=== PATIENT | female | born 1960 ===

== ENCOUNTER 2016-12-20 18:32 | Emergency (ER) | payer MEDICAID ==
[2016-12-20 18:44] VITALS: TEMP 98.2
[2016-12-20] MEDS ORDERED: Sodium Chloride 0.9% 1,000 ML IV STA (19:56)
--- NOTE | 2016-12-20 20:10 | ED PDOC ---
Syncope/Near Syncope/Dizziness Time Seen by Provider: 12/20/16 19:06 Chief Complaint (Nursing): Dizziness/Lightheaded Chief Complaint (Provider): Dizziness History Per: Patient History/Exam Limitations: no limitations Onset/Duration Of Symptoms: Days (3) Current Symptoms Are (Timing): Still Present Additional Complaint(s): Dana Quigley is a 56 y/o female, with a pertinent past medical history of Vertigo, presenting to the ER on 12/20/2016 with complaints of dizziness for three days. Patient states the dizziness does not have a spinning sensation. The dizziness worsened when the patient got out of bed today. Patient states she had difficulty ambulating because she felt near-syncopal episodes when walking. She notes associated chest pain this afternoon but has resolved on its own upon arrival to the ED. Patient is also complaining of mild headaches for three days with associated myalgias and chills. Patient took Meclizine that was prescribed to her previously but has not experienced any improvement in the dizziness, prompting him to seek medical evaluation. Past Medical History Reviewed: Historical Data, Nursing Documentation, Vital Signs Vital Signs: Last Vital Signs Temp 98.2 F 12/20/16 18:42 Pulse 89 12/20/16 18:42 Resp 16 12/20/16 18:42 BP 132/81 12/20/16 18:42 Pulse Ox 98 12/20/16 18:42 - Medical History PMH: Anemia, Anxiety, Arthritis, Asthma, Atrial Fibrillation, Bronchitis, Cardia Arrhythmia, COPD, Depression, Diverticulitis, Gastritis (ulcer), GERD, HTN, Pneumonia, Rheumatoid Arthritis Denies: HIV, Chronic Kidney Disease Other PMH: GI Bleed - Surgical History Surgical History: Cholecystectomy, (x3) - Family History Family History: States: Unknown Family Hx - Social History Current smoker - smoking cessation education provided: No Alcohol: None Drugs: Denies - Immunization History Hx Tetanus Toxoid Vaccination: No Hx Influenza Vaccination: No Hx Pneumococcal Vaccination: No - Home Medications Home Medications: Ambulatory Orders Medication Instructions Recorded ALPRAZolam [Xanax] 1 mg PO TID 10/30/15 ARIPiprazole [Abilify] 2 mg PO HS 10/30/15 DULoxetine [Cymbalta] 60 mg PO HS 10/30/15 Nystatin [Nystatin Oral Susp] 5 ml PO QID #0 [facility] [place] 11/09/15 Oxycodone HCl/Acetaminophen 2 each PO Q6 #0 tablet 11/09/15 [Percocet 5-325 mg Tablet] Pantoprazole [Protonix EC Tab] 40 mg PO DAILY #0 ect 11/09/15 predniSONE [predniSONE Tab] 35 mg PO DAILY #0 tab 11/09/15 Ibuprofen [Motrin] 600 mg PO TID PRN #30 tab 05/01/16 oxyCODONE/Acetaminophen [Percocet 1 ea PO Q6 PRN #10 tab 05/01/16 5/325 mg Tab] - Allergies Allergies/Adverse Reactions: Allergies Allergy/AdvReac Type Severity Reaction Status Date / Time ciprofloxacin [From Cipro] Allergy RASH Verified 12/20/16 18:41 ciprofloxacin HCl Allergy RASH Verified 12/20/16 18:41 [From Cipro] Penicillins Allergy RASH Verified 12/20/16 18:41 Review of Systems Constitutional: Positive for: Chills, Other ((+) myalgia ) Cardiovascular: Positive for: Chest Pain Neurological: Positive for: Headache, Dizziness Physical Exam - Reviewed Nursing Documentation Reviewed: Yes Vital Signs Reviewed: Yes - Physical Exam Appears: Positive for: Non-toxic, No Acute Distress. Negative for: Uncomfortable (pt is comfortable ) Head Exam: Positive for: ATRAUMATIC, NORMOCEPHALIC Skin: Positive for: Normal Color. Negative for: Rash Eye Exam: Positive for: Normal appearance, EOMI, PERRL ENT: Positive for: Normal ENT Inspection. Negative for: Pharyngeal Erythema, Tonsillar Exudate, Tonsillar Swelling Neck: Positive for: Normal, Painless ROM, Supple Cardiovascular/Chest: Positive for: Regular Rate, Rhythm. Negative for: Murmur Respiratory: Positive for: Normal Breath Sounds. Negative for: Wheezing, Respiratory Distress Gastrointestinal/Abdominal: Positive for: Normal Exam, Soft. Negative for: Tenderness Extremity: Positive for: Normal ROM. Negative for: Deformity, Swelling Neurologic/Psych: Positive for: Alert, logging superintendent II-XII (intact ), Oriented, Gait ( steady ). Negative for: Motor/Sensory Deficits - Laboratory Results Result Diagrams: 12/20/16 20:09 12/20/16 20:09 - ECG ECG: Positive for: Interpreted By Me, Viewed By Me ECG Rhythm: Positive for: Normal QRS, Normal ST Segment, Sinus Rhythm. Negative for: Nonspecific Changes Rate: 78 O2 Sat by Pulse Oximetry: 98 Medical Decision Making Medical Decision Makin:06 Initial Impression- Dizziness. Differential dx includes but not limited to Dizziness assx with anemia and cardiac arrhythmia, less likely but also have to consider persistent vertigo (central vs peripheral); r/o UTI and dehydration Initial Plan- * Type and Screen * CT Head w/o contrast * EKG * BMP * Troponin * Urine Dip * CBC w/ differential * Sodium Chloride 1,000 ml IV * Re-eval CT HEAD FINDINGS: Brain: Ventricles are normal in size and configuration. There is no midline shift. There are no intra-axial or extra-axial mass lesions or areas of hemorrhage. There are no abnormal fluid collections. Rodriguez-white differentiation is maintained. Ventricles: See above. Bones: Cranial vault is intact. Soft tissues: unremarkable Sinuses: There is no acute sinusitis. Ears and mastoids: Middle ears and mastoids are unremarkable Orbits: Orbital contents are unremarkable. IMPRESSION: No acute intracranial abnormality Documented by Hudson Ramires, acting as a scribe for Shanti Ulloa MD All medical record entries made by the Scribe were at my direction and personally dictated by me. I have reviewed the chart and agree that the record accurately reflects my personal performance of the history, physical exam, medical decision making, and the department course for this patient. I have also personally directed, reviewed, and agree with the discharge instructions and disposition. Disposition - Clinical Impression Clinical Impression: Dizziness - Patient ED Disposition Is Patient to be Admitted: No Doctor Will See Patient In The: Office Counseled Patient/Family Regarding: Studies Performed, Diagnosis, Need For Followup - Disposition Referrals: Fredis Johnston MD [Staff Provider] - Disposition: Routine/Home Disposition Time: 22:54 Condition: GOOD Additional Instructions: Follow up with your PCP in 2-3 days. Instructions: Dizziness (ED)
[2016-12-20 20:32] LABS: BLOOD UREA NITROGEN 18 mg/dl (7-17); CALCIUM 9.2 mg/dL (8.4-10.2); CARBON DIOXIDE 22 mmol/L (22-30); CHLORIDE 109 mmol/L (98-107); GFR AFRICAN-AMERICAN > 60; GLUCOSE,RANDOM 100 mg/dL (65-105); POTASSIUM 3.7 MMOL/L (3.6-5.0); SODIUM 143 mmol/l (132-148)
[2016-12-20 20:36] LABS: BASO # 0.1 K/uL (0.0-0.2); EOS # 0.2 K/uL (0.0-0.7); EOS % 1.9 % (0.0-4.0); HEMATOCRIT 42.5 % (34.0-47.0); LYMPH # 2.2 K/uL (1.0-4.3); LYMPH % 18.6 % (20.0-40.0); MEAN CELL VOLUME 82.7 fl (81.0-99.0); MEAN CORPUSCULAR HEMOGLOBIN 26.6 pg (27.0-31.0); MEAN CORPUSCULAR HGB CONC 32.2 g/dL (33.0-37.0); MEAN PLATELET VOLUME 10.3 fl (7.2-11.7); MONO # 0.7 K/uL (0.0-0.8); MONO % 5.5 % (0.0-10.0); NEUT # 8.8 K/uL (1.8-7.0); NRBC % 0.1 % (0.0-0.0); RED CELL DISTRIBUTION WIDTH 13.9 % (11.5-14.5)
--- NOTE | 2016-12-20 20:52 | CT ---
EXAM: CT Head Without Intravenous Contrast CLINICAL HISTORY: 56 years old, female; Signs and symptoms; Dizziness TECHNIQUE: Axial computed tomography images of the head/brain without intravenous contrast. This CT exam was performed using one or more of the following dose reduction techniques: automated exposure control, adjustment of the mA and/or kV according to patient size, and/or use of iterative reconstruction technique. Coronal and sagittal reformatted images were created and reviewed. EXAM DATE/TIME: 12/20/2016 7:55 PM COMPARISON: CT HEAD OR BRAIN W/O CONT 11/14/2013 3:28:39 PM FINDINGS: Brain: Ventricles are normal in size and configuration. There is no midline shift. There are no intra-axial or extra-axial mass lesions or areas of hemorrhage. There are no abnormal fluid collections. Rodriguez-white differentiation is maintained. Ventricles: See above. Bones: Cranial vault is intact. Soft tissues: unremarkable Sinuses: There is no acute sinusitis. Ears and mastoids: Middle ears and mastoids are unremarkable Orbits: Orbital contents are unremarkable. IMPRESSION: No acute intracranial abnormality
[2016-12-20 22:10] VITALS: BP 132/78; RESP 18
[2016-12-20 22:56] VITALS: O2SAT 98
[2016-12-20 22:57] VITALS: PULSE 78
--- NOTE | 2016-12-21 11:54 | RAD ---
HISTORY: cough COMPARISON: Chest x-ray performed 10/24/15 TECHNIQUE: Chest PA and lateral FINDINGS: LUNGS: Medial right upper lobe opacity, of unclear significance possibly artifactual or related to tortuous vasculature. Please note that chest x-ray has limited sensitivity for the detection of pulmonary masses. PLEURA: No significant pleural effusion identified. No definite pneumothorax . CARDIOVASCULAR: The cardiomediastinal silhouette appears within normal limits of size. OSSEOUS STRUCTURES: No acute osseous abnormality identified. VISUALIZED UPPER ABDOMEN: Mild elevation of the right hemidiaphragm. OTHER FINDINGS: None. IMPRESSION: Medial right upper lobe opacity, of unclear significance possibly artifactual or related to tortuous vasculature. If indicated, outpatient CT of the chest may be considered. Study has been marked for PA review.
--- NOTE | 2016-12-22 11:47 | CARD ---
APPROVED REPORT EKG Measurement Heart [id number] DC [id number] <Conclusion> Normal sinus rhythm Nonspecific T wave abnormality Prolonged QT Abnormal ECG
== END 2016-12-20 23:20 | disposition home or self-care (01) ==
LOC: H.ER 18:32
DX: R42 Dizziness and giddiness (principal); R51 Headache; M79.1 Myalgia

== ENCOUNTER 2016-12-21 14:13 | Emergency (ER) | payer MEDICAID ==
[2016-12-21 14:25] VITALS: RESP 18
[2016-12-21] MEDS ORDERED: Sodium Chloride 0.9% 1,000 ML IV STA (14:55)
--- NOTE | 2016-12-21 15:33 | ED PDOC ---
HPI: General Adult Time Seen by Provider: 12/21/16 14:30 Chief Complaint (Nursing): Medical Clearance History Per: Patient (states that she has had dizziness/spinning now for 4 days. She was seen in our ED yesterday and after a workup that included a brain CT and blood work, she was discharged home to followup with Dr. Johnston. According to the patient, she has had dizziness in the past and she has taken meclizine and another med for the past 3 days without relief. She also reports having headaches with slight nausea and diffuse bone pain. She denies fever or chills. She lives alone. Her children are grown and live elsewhere. She has been a smoker since her teenage years.) History/Exam Limitations: no limitations Onset/Duration Of Symptoms: Days (4), Gradual, Persistent Current Symptoms Are (Timing): Still Present Past Medical History Reviewed: Historical Data, Nursing Documentation, Vital Signs Vital Signs: Last Vital Signs Temp 98 F 12/21/16 17:40 Pulse 73 12/21/16 17:40 Resp 18 12/21/16 17:40 BP 109/65 12/21/16 17:40 Pulse Ox 100 12/21/16 17:40 - Medical History PMH: Anemia, Anxiety, Arthritis, Asthma, Atrial Fibrillation, Bronchitis, Cardia Arrhythmia, COPD, Depression, Diverticulitis, Gastritis (ulcer), GERD, HTN, Pneumonia, Rheumatoid Arthritis Denies: HIV, Chronic Kidney Disease - Surgical History Surgical History: Cholecystectomy, (x3) - Family History Family History: States: No Known Family Hx - Living Arrangements Living Arrangements: Alone - Social History Ex-Smoker (has not smoked in the last 12 months): Yes Drugs: Denies - Immunization History Hx Tetanus Toxoid Vaccination: No Hx Influenza Vaccination: No Hx Pneumococcal Vaccination: No - Home Medications Home Medications: Ambulatory Orders Medication Instructions Recorded ALPRAZolam [Xanax] 1 mg PO TID 10/30/15 ARIPiprazole [Abilify] 2 mg PO HS 10/30/15 DULoxetine [Cymbalta] 60 mg PO HS 10/30/15 Nystatin [Nystatin Oral Susp] 5 ml PO QID #0 [facility] 11/09/15 Oxycodone HCl/Acetaminophen 2 each PO Q6 #0 tablet 11/09/15 [Percocet 5-325 mg Tablet] Pantoprazole [Protonix EC Tab] 40 mg PO DAILY #0 ect 11/09/15 predniSONE [predniSONE Tab] 35 mg PO DAILY #0 tab 11/09/15 Ibuprofen [Motrin] 600 mg PO TID PRN #30 tab 05/01/16 oxyCODONE/Acetaminophen [Percocet 1 ea PO Q6 PRN #10 tab 05/01/16 5/325 mg Tab] - Allergies Allergies/Adverse Reactions: Allergies Allergy/AdvReac Type Severity Reaction Status Date / Time ciprofloxacin [From Cipro] Allergy RASH Verified 12/20/16 18:41 ciprofloxacin HCl Allergy RASH Verified 12/20/16 18:41 [From Cipro] Penicillins Allergy RASH Verified 12/20/16 18:41 Review of Systems ROS Statement: Except As Marked, All Systems Reviewed And Found Negative Constitutional: Negative for: Fever, Chills Cardiovascular: Negative for: Chest Pain Respiratory: Negative for: Shortness of Breath Gastrointestinal: Positive for: Nausea. Negative for: Vomiting Neurological: Positive for: Headache, Dizziness. Negative for: Altered Mental Status Psych: Positive for: Anxiety Physical Exam - Reviewed Nursing Documentation Reviewed: Yes Vital Signs Reviewed: Yes - Physical Exam Appears: Positive for: Well, Non-toxic, No Acute Distress Head Exam: Positive for: ATRAUMATIC, NORMAL INSPECTION, NORMOCEPHALIC Skin: Positive for: Normal Color, Warm, DRY Eye Exam: Positive for: EOMI, Normal appearance, PERRL ENT: Positive for: Normal ENT Inspection Neck: Positive for: Normal, Painless ROM Cardiovascular/Chest: Positive for: Regular Rate, Rhythm Respiratory: Positive for: CNT, Normal Breath Sounds Gastrointestinal/Abdominal: Positive for: Normal Exam, Bowel Sounds, Soft Back: Positive for: Normal Inspection Extremity: Positive for: Normal ROM Neurologic/Psych: Positive for: Alert, Oriented - Laboratory Results Result Diagrams: 12/21/16 15:02 12/21/16 16:00 - ECG O2 Sat by Pulse Oximetry: 99 Medical Decision Making Medical Decision Making: case d/w Dr. Johnston for admission for further evaluation. Patient offered admission and refused. She understands the risks and benefits of leaving AMA. Disposition - Clinical Impression Clinical Impression: Dizziness - Patient ED Disposition Is Patient to be Admitted: No Discussed With : Fredis Johnston Doctor Will See Patient In The: Office Counseled Patient/Family Regarding: Diagnosis - Disposition Referrals: Fredis Johnston MD [Family Provider] - Disposition: Against Medical Advice Disposition Time: 17:20 Condition: GUARDED Instructions: Dizziness (ED) Forms: [facility] (Greenlandic) - POA Present On Arrival: None
[2016-12-21 16:06] LABS: BASO # 0.1 K/uL (0.0-0.2); BASO % 1.1 % (0.0-2.0); EOS # 0.2 K/uL (0.0-0.7); EOS % 2.5 % (0.0-4.0); HEMATOCRIT 39.9 % (34.0-47.0); LYMPH # 2.3 K/uL (1.0-4.3); LYMPH % 25.7 % (20.0-40.0); MEAN CELL VOLUME 82.5 fl (81.0-99.0); MEAN CORPUSCULAR HEMOGLOBIN 26.5 pg (27.0-31.0); MEAN CORPUSCULAR HGB CONC 32.1 g/dL (33.0-37.0); MEAN PLATELET VOLUME 9.3 fl (7.2-11.7); MONO # 0.7 K/uL (0.0-0.8); MONO % 8.1 % (0.0-10.0); NEUT # 5.6 K/uL (1.8-7.0); NEUT % 62.6 % (50.0-75.0); RED CELL DISTRIBUTION WIDTH 13.7 % (11.5-14.5)
[2016-12-21 16:12] LABS: BLOOD UREA NITROGEN 13 mg/dl (7-17); CALCIUM 8.7 mg/dL (8.4-10.2); CARBON DIOXIDE 21 mmol/L (22-30); CHLORIDE 113 mmol/L (98-107); GFR AFRICAN-AMERICAN > 60; GLUCOSE,RANDOM 103 mg/dL (65-105); POTASSIUM 3.7 MMOL/L (3.6-5.0); SODIUM 141 mmol/l (132-148)
--- NOTE | 2016-12-21 16:37 | CT ---
PROCEDURE: CT Chest without contrast HISTORY: RUL opacity on x-ray from yesterday's visit COMPARISON: December 20, 2016. X-ray chest. Summary of findings on the comparison examination:Medial right upper lobe opacity, of unclear significance possibly artifactual or related to tortuous vasculature. TECHNIQUE: Contiguous axial images were obtained through the chest without intravenous contrast enhancement. Sagittal and coronal reconstructions were performed. Radiation dose (DLP): 659.83 mGy-cm. This CT exam was performed using one or more of the following dose reduction techniques: Automated exposure control, adjustment of the mA and/or kV according to patient size, and/or use of iterative reconstruction technique. FINDINGS: LUNGS: Clear lungs. Visualized airway clear. MEDIASTINUM: Unremarkable thoracic aorta. No aneurysm. Normal sized heart. Main pulmonary artery unremarkable. No vascular congestion. No lymphadenopathy. PLEURA: No pleural fluid. No pneumothorax. BONES: No fracture. No destructive lesion. UPPER ABDOMEN: Grossly unremarkable. OTHER FINDINGS: None. IMPRESSION: Unremarkable non-contrast enhanced CT of the chest. Findings on prior chest x-ray represent great vessels and mediastinal fat.
[2016-12-21 17:41] VITALS: BP 109/65; PULSE 73; TEMP 98
[2016-12-21 17:56] VITALS: O2SAT 99
== END 2016-12-21 17:54 | disposition left against medical advice (07) ==
LOC: H.ER 14:13
DX: R42 Dizziness and giddiness (principal); Z86.59 Personal history of other mental and behavioral disorders; I10 Essential (primary) hypertension; J44.9 Chronic obstructive pulmonary disease, unspecified; Z87.891 Personal history of nicotine dependence; Z88.0 Allergy status to penicillin

== ENCOUNTER 2016-12-28 21:23 | Emergency (ER) | payer MEDICAID ==
[2016-12-28 21:36] VITALS: BP 130/78; PULSE 100; RESP 18; TEMP 98.8; O2SAT 100
[2016-12-28] MEDS ORDERED: Oxycodone/Acetaminophen 5/325 mg Tab PO STA (21:53)
--- NOTE | 2016-12-28 21:53 | ED PDOC ---
Upper Extremity Pain/Injury Time Seen by Provider: 12/28/16 21:33 Chief Complaint (Nursing): Finger,Hand,&Wrist Chief Complaint (Provider): Left middle finger pain, injury s/p fall Past Medical History Vital Signs: Last Vital Signs Temp 98.8 F 12/28/16 21:27 Pulse 100 H 12/28/16 21:27 Resp 18 12/28/16 21:27 BP 130/78 12/28/16 21:27 Pulse Ox 100 12/28/16 21:27 - Medical History PMH: Anemia, Anxiety, Arthritis, Asthma, Atrial Fibrillation, Bronchitis, Cardia Arrhythmia, COPD, Depression, Diverticulitis, Gastritis (ulcer), GERD, HTN, Pneumonia, Rheumatoid Arthritis Denies: HIV, Chronic Kidney Disease - Surgical History Surgical History: Cholecystectomy, (x3) - Family History Family History: States: Unknown Family Hx - Immunization History Hx Tetanus Toxoid Vaccination: No Hx Influenza Vaccination: No Hx Pneumococcal Vaccination: No - Home Medications Home Medications: Ambulatory Orders Medication Instructions Recorded ALPRAZolam [Xanax] 1 mg PO TID 10/30/15 ARIPiprazole [Abilify] 2 mg PO HS 10/30/15 DULoxetine [Cymbalta] 60 mg PO HS 10/30/15 Nystatin [Nystatin Oral Susp] 5 ml PO QID #0 [facility] 11/09/15 Oxycodone HCl/Acetaminophen 2 each PO Q6 #0 tablet 11/09/15 [Percocet 5-325 mg Tablet] Pantoprazole [Protonix EC Tab] 40 mg PO DAILY #0 ect 11/09/15 predniSONE [predniSONE Tab] 35 mg PO DAILY #0 tab 11/09/15 Ibuprofen [Motrin] 600 mg PO TID PRN #30 tab 05/01/16 oxyCODONE/Acetaminophen [Percocet 1 ea PO Q6 PRN #10 tab 05/01/16 5/325 mg Tab] - Allergies Allergies/Adverse Reactions: Allergies Allergy/AdvReac Type Severity Reaction Status Date / Time ciprofloxacin [From Cipro] Allergy RASH Verified 12/20/16 18:41 ciprofloxacin HCl Allergy RASH Verified 12/20/16 18:41 [From Cipro] Penicillins Allergy RASH Verified 12/20/16 18:41 Physical Exam - Reviewed Nursing Documentation Reviewed: Yes Vital Signs Reviewed: Yes - Physical Exam Appears: Positive for: Well, Non-toxic, No Acute Distress Head Exam: Positive for: ATRAUMATIC, NORMAL INSPECTION, NORMOCEPHALIC Skin: Positive for: Normal Color (No ecchymosis, no erythema ), Warm Eye Exam: Positive for: Normal appearance, EOMI, PERRL ENT: Positive for: Normal ENT Inspection Neck: Positive for: Normal, Painless ROM Respiratory: Negative for: Accessory Muscle Use Back: Positive for: Normal Inspection Extremity: Positive for: Tenderness (DIP of the left middle finger ), Swelling ( Mild ). Negative for: Normal ROM (Decreased flexion due to pain ), Deformity Neurologic/Psych: Positive for: Alert, Oriented - ECG O2 Sat by Pulse Oximetry: 100 Medical Decision Making Medical Decision Making: (+) avulsion fx seen on x-ray Pt was seen in ER 12/20 and 12/21 for evaluation of dizziness. Pt did not want to stay in the hospital overnight. Pt saw Dr. Johnston earlier today and has x for out -patient MRI and states she does not want to stay in ER for further evaluation of dizziness. Disposition - Clinical Impression Clinical Impression: Avulsion fracture of bone - Patient ED Disposition Is Patient to be Admitted: No Counseled Patient/Family Regarding: Diagnosis, Need For Followup, Rx Given - Disposition Referrals: Lizzie Nowak MD [Staff Provider] - Disposition: Routine/Home Disposition Time: 22:47 Condition: GOOD Additional Instructions: Ice, elevation, motrin. Follow-up with hand specialist. Instructions: Finger Fracture (ED)
[2016-12-28] MEDS ORDERED: Oxycodone/Acetaminophen 5/325 mg Tab ONE (21:55)
--- NOTE | 2016-12-29 16:04 | RAD ---
PROCEDURE: Left middle finger radiographs. HISTORY: pain s/p fall COMPARISON: 09/03/2013. TECHNIQUE: AP radiograph of the left hand, as well as spot oblique and lateral images of left middle finger were obtained. FINDINGS: LEFT MIDDLE FINGER: Left middle finger normal, without fracture of focal lesion. Remainder of the left hand (as seen on the AP view) is grossly unremarkable. JOINTS: Normal. SOFT TISSUES: Normal. OTHER FINDINGS: None. IMPRESSION: No acute fracture or dislocation.
== END 2016-12-28 23:14 | disposition home or self-care (01) ==
LOC: H.ER 21:23
DX: S62.603A Fracture of unspecified phalanx of left middle finger, initial encounter for closed fracture (principal); W19.XXXA Unspecified fall, initial encounter; Y92.89 Other specified places as the place of occurrence of the external cause; Z88.0 Allergy status to penicillin

== ENCOUNTER 2017-04-10 16:43 | Emergency (ER) | payer MEDICAID ==
[2017-04-10 16:51] VITALS: BP 147/80; PULSE 73; RESP 18; TEMP 98.2; O2SAT 97
--- NOTE | 2017-04-10 18:23 | ED PDOC ---
HPI: General Adult Time Seen by Provider: 04/10/17 16:50 Chief Complaint (Nursing): Dizziness/Lightheaded Chief Complaint (Provider): Weakness History Per: Patient History/Exam Limitations: no limitations Onset/Duration Of Symptoms: Days Have you had recent travel within the past 21 days to any of the following countries: [place], [place], [place] or [place]?: No Current Symptoms Are (Timing): Still Present Additional History Per: Patient Additional Complaint(s): 56yo female, past medical history of asthma, COPD, presents to the ED for evaluation of dizziness, and generalized weakness for the past 3 days. Patient reports she was seen in this facility a couple months ago for similar symptoms and had a CT head, which was normal. She followed up with Dr. Gibson and was given prescriptions for her symptoms; patient was informed to receive an outpatient MRI but she has not had that yet. She reports generalized weakness and dizziness for the past 3 days as well as right upper quadrant abdominal pain. She denies any fever, or vomiting; patient states she had mild diarrhea which has resolved. Of note, patient has chronic back pain for which she takes narcotics. She offers no other medical complaints. PCP: Dr. Johnston Past Medical History Reviewed: Historical Data, Nursing Documentation, Vital Signs Vital Signs: Last Vital Signs Temp 98.2 F 04/10/17 16:46 Pulse 73 04/10/17 16:46 Resp 18 04/10/17 16:46 BP 147/80 04/10/17 16:46 Pulse Ox 97 04/11/17 20:49 - Medical History PMH: Anemia, Anxiety, Arthritis, Asthma, Atrial Fibrillation, Bronchitis, Cardia Arrhythmia, COPD, Depression, Diverticulitis, Gastritis (ulcer), GERD, HTN, Pneumonia, Rheumatoid Arthritis Denies: HIV, Chronic Kidney Disease - Surgical History Surgical History: Cholecystectomy, (x3) - Family History Family History: States: Unknown Family Hx - Social History Current smoker - smoking cessation education provided: No Ex-Smoker (has not smoked in the last 12 months): Yes Alcohol: None Drugs: Denies - Immunization History Hx Tetanus Toxoid Vaccination: No Hx Influenza Vaccination: No Hx Pneumococcal Vaccination: No - Home Medications Home Medications: Ambulatory Orders Medication Instructions Recorded ALPRAZolam [Xanax] 1 mg PO TID 10/30/15 ARIPiprazole [Abilify] 2 mg PO HS 10/30/15 DULoxetine [Cymbalta] 60 mg PO HS 10/30/15 Nystatin [Nystatin Oral Susp] 5 ml PO QID #0 udc 11/09/15 Oxycodone HCl/Acetaminophen 2 each PO Q6 #0 tablet 11/09/15 [Percocet 5-325 mg Tablet] Pantoprazole [Protonix EC Tab] 40 mg PO DAILY #0 ect 11/09/15 predniSONE [predniSONE Tab] 35 mg PO DAILY #0 tab 11/09/15 Ibuprofen [Motrin] 600 mg PO TID PRN #30 tab 05/01/16 oxyCODONE/Acetaminophen [Percocet 1 ea PO Q6 PRN #10 tab 05/01/16 5/325 mg Tab] Nitrofurantoin Macrocrystals 100 mg PO BID #14 cap 04/10/17 [Macrobid] - Allergies Allergies/Adverse Reactions: Allergies Allergy/AdvReac Type Severity Reaction Status Date / Time ciprofloxacin [From Cipro] Allergy RASH Verified 04/10/17 16:44 ciprofloxacin HCl Allergy RASH Verified 04/10/17 16:44 [From Cipro] Penicillins Allergy RASH Verified 04/10/17 16:44 Review of Systems ROS Statement: Except As Marked, All Systems Reviewed And Found Negative Constitutional: Negative for: Fever Gastrointestinal: Positive for: Abdominal Pain. Negative for: Nausea, Vomiting , Diarrhea Neurological: Positive for: Weakness, Dizziness Physical Exam - Reviewed Nursing Documentation Reviewed: Yes Vital Signs Reviewed: Yes - Physical Exam Appears: Positive for: Non-toxic, No Acute Distress Head Exam: Positive for: ATRAUMATIC Skin: Positive for: Warm, Dry Eye Exam: Positive for: Normal appearance Neck: Positive for: Supple Cardiovascular/Chest: Positive for: Regular Rate, Rhythm Respiratory: Positive for: Normal Breath Sounds. Negative for: Respiratory Distress Gastrointestinal/Abdominal: Positive for: Soft, Tenderness (right upper quadrant tenderness, no right lower quadrant tenderness noted.) Extremity: Positive for: Normal ROM. Negative for: Deformity, Swelling Neurologic/Psych: Positive for: Alert, Oriented. Negative for: Motor/Sensory Deficits - Laboratory Results Result Diagrams: 04/10/17 19:00 04/10/17 19:00 - ECG O2 Sat by Pulse Oximetry: 97 (RA) Pulse Ox Interpretation: Normal Medical Decision Making Medical Decision Making: Time: 1740 Impression: Weakness, dizziness Plan: -- CT Head -- CT AP w/o contrast -- Labs -- Antivert 25 mg PO Reassess Time: 1846 CT Head FINDINGS: HEMORRHAGE: No intracranial hemorrhage. BRAIN: No mass effect or edema. No atrophy or chronic microvascular ischemic changes. VENTRICLES: Unremarkable. No hydrocephalus. CALVARIUM: Unremarkable. PARANASAL SINUSES: Unremarkable as visualized. No significant inflammatory changes. MASTOID AIR CELLS: Unremarkable as visualized. No inflammatory changes. OTHER FINDINGS: None. IMPRESSION: No significant interval change compared to the prior examination(s). No acute intracranial abnormalities. No significant findings to account for the clinical presentation. Time: 1899 Labs reviewed and show no clinically significant abnormalities. CT Abdomen FINDINGS: LOWER THORAX: Unremarkable. LIVER: Unremarkable. No gross lesion or ductal dilatation. GALLBLADDER AND BILE DUCTS: Status post cholecystectomy. No abnormality is seen in the gallbladder fossa. PANCREAS: Unremarkable. No gross lesion or ductal dilatation. SPLEEN: Unremarkable. ADRENALS: Unremarkable. No mass. KIDNEYS AND URETERS: Right kidney: Partially calcified mass lower pole exophytic 12.6 mm. Stable finding compared to the prior CT scan 09/15/2014. Left kidney in ureter: Unremarkable. No hydronephrosis. No solid mass. VASCULATURE: Unremarkable. No aortic aneurysm. BOWEL: Diverticulosis without an acute inflammatory component or other associated pathologic process. APPENDIX: No abnormalities to suggest acute appendicitis. No right lower quadrant inflammatory processes identified. . PERITONEUM: Unremarkable. No free fluid. No free air. LYMPH NODES: Unremarkable. No enlarged lymph nodes. BLADDER: Unremarkable. REPRODUCTIVE: Unremarkable uterus and right adnexal region. Calcifications within the left adnexa which could be dystrophic and are unchanged compared to the prior study. BONES: No acute fracture. OTHER FINDINGS: None. IMPRESSION: No acute findings related to/accounting for the clinical presentation. Additional benign and/or incidental findings described above. No significant interval change compared to the prior examination(s). Time: 2035 Upon re-assessment, patient reports continued pain. She is requesting morphine. time: 2124 Upon re-assessment, patient states she feels much better after the morphine. Patient informed of CT results and reports to provider that she has an appointment with Dr. Gibson tomorrow. Patient to be discharge home and advised on the need to follow up tomorrow. Informed to return to ED if symptoms worsen or new symptoms arise. Scribe Attestation: Documented by Sara Daily acting as a scribe for Maciej Yusuf MD. Provider Attestation: All medical record entries made by the Scribe were at my direction and personally dictated by me. I have reviewed the chart and agree that the record accurately reflects my personal performance of the history, physical exam, medical decision making, and the department course for this patient. I have also personally directed, reviewed, and agree with the discharge instructions and disposition. Disposition - Clinical Impression Clinical Impression: Headache - Patient ED Disposition Is Patient to be Admitted: No Counseled Patient/Family Regarding: Studies Performed, Diagnosis, Need For Followup - Disposition Disposition: Routine/Home Disposition Time: 20:00 Condition: IMPROVED Additional Instructions: follow up with Dr Gibson tomorrow. return to the ED with any worsening or concerning symptoms Prescriptions: Nitrofurantoin Macrocrystals [Macrobid] 100 mg PO BID #14 cap Instructions: Urinary Tract Infection in Women (ED), General Headache (ED) Forms: [employer] [place] ([place])
[2017-04-10] MEDS ORDERED: Oxycodone/Acetaminophen 5/325 mg Tab PO ONE (18:47)
--- NOTE | 2017-04-10 18:48 | CT ---
PROCEDURE: CT HEAD WITHOUT CONTRAST. HISTORY: dizziness COMPARISON: 12/20/2016 CT head TECHNIQUE: Axial computed tomography images were obtained through the head/brain without intravenous contrast. Coronal and sagittal reconstructed images. Radiation dose: Total exam DLP = 847.60 mGy-cm. This CT exam was performed using one or more of the following dose reduction techniques: Automated exposure control, adjustment of the mA and/or kV according to patient size, and/or use of iterative reconstruction technique. FINDINGS: HEMORRHAGE: No intracranial hemorrhage. BRAIN: No mass effect or edema. No atrophy or chronic microvascular ischemic changes. VENTRICLES: Unremarkable. No hydrocephalus. CALVARIUM: Unremarkable. PARANASAL SINUSES: Unremarkable as visualized. No significant inflammatory changes. MASTOID AIR CELLS: Unremarkable as visualized. No inflammatory changes. OTHER FINDINGS: None. IMPRESSION: No significant interval change compared to the prior examination(s). No acute intracranial abnormalities. No significant findings to account for the clinical presentation.
[2017-04-10 18:54] LABS: RBC URINE 9 /hpf (0-3); URINE BACTERIA RARE (<OCC); URINE BILIRUBIN NEGATIVE (NEGATIVE); URINE BLOOD SMALL (NEGATIVE); URINE COLOR YELLOW (YELLOW); URINE GLUCOSE (UA) NEG (Normal); URINE KETONE NEGATIVE (NEGATIVE); URINE LEUKOCYTE ESTERASE TRACE Leu/uL (Negative); URINE PROTEIN 30 mg/dL (NEGATIVE); URINE UROBILINOGEN 0.2-1.0 mg/dL (0.2-1.0)
[2017-04-10 18:56] LABS: WBC URINE 16 /hpf (0-5)
--- NOTE | 2017-04-10 19:02 | CT ---
PROCEDURE: CT Abdomen and Pelvis without intravenous contrast HISTORY: diffuse abdominal pain COMPARISON: 09/15/2014 CT abdomen and pelvis. TECHNIQUE: Unenhanced study. Neither oral nor intravenous contrast administered. Sensitivity and specificity for acute inflammatory processes limited by the absence of oral and intravenous contrast. Radiation dose: Total exam DLP = 1078.00 mGy-cm. This CT exam was performed using one or more of the following dose reduction techniques: Automated exposure control, adjustment of the mA and/or kV according to patient size, and/or use of iterative reconstruction technique. FINDINGS: LOWER THORAX: Unremarkable. LIVER: Unremarkable. No gross lesion or ductal dilatation. GALLBLADDER AND BILE DUCTS: Status post cholecystectomy. No abnormality is seen in the gallbladder fossa. PANCREAS: Unremarkable. No gross lesion or ductal dilatation. SPLEEN: Unremarkable. ADRENALS: Unremarkable. No mass. KIDNEYS AND URETERS: Right kidney: Partially calcified mass lower pole exophytic 12.6 mm. Stable finding compared to the prior CT scan 09/15/2014. Left kidney in ureter: Unremarkable. No hydronephrosis. No solid mass. VASCULATURE: Unremarkable. No aortic aneurysm. BOWEL: Diverticulosis without an acute inflammatory component or other associated pathologic process. APPENDIX: No abnormalities to suggest acute appendicitis. No right lower quadrant inflammatory processes identified. . PERITONEUM: Unremarkable. No free fluid. No free air. LYMPH NODES: Unremarkable. No enlarged lymph nodes. BLADDER: Unremarkable. REPRODUCTIVE: Unremarkable uterus and right adnexal region. Calcifications within the left adnexa which could be dystrophic and are unchanged compared to the prior study. BONES: No acute fracture. OTHER FINDINGS: None. IMPRESSION: No acute findings related to/accounting for the clinical presentation. Additional benign and/or incidental findings described above. No significant interval change compared to the prior examination(s).
[2017-04-10 19:11] LABS: BASO # 0.1 K/uL (0.0-0.2); BASO % 1.2 % (0.0-2.0); EOS # 0.2 K/uL (0.0-0.7); EOS % 2.4 % (0.0-4.0); HEMATOCRIT 40.5 % (34.0-47.0); LYMPH # 2.1 K/uL (1.0-4.3); LYMPH % 22.8 % (20.0-40.0); MEAN CORPUSCULAR HEMOGLOBIN 27.2 pg (27.0-31.0); MEAN CORPUSCULAR HGB CONC 32.8 g/dL (33.0-37.0); MEAN PLATELET VOLUME 9.6 fl (7.2-11.7); MONO # 0.7 K/uL (0.0-0.8); MONO % 7.2 % (0.0-10.0); NEUT # 6.2 K/uL (1.8-7.0); NEUT % 66.4 % (50.0-75.0); NRBC % 0.1 % (0.0-0.0); RED CELL DISTRIBUTION WIDTH 14.3 % (11.5-14.5); WHITE BLOOD COUNT 9.3 K/uL (4.8-10.8)
[2017-04-10 19:26] LABS: ALB/GLOB RATIO 1.3 (1.0-2.1); BILIRUBIN,TOTAL 0.2 mg/dl (0.2-1.3); BLOOD UREA NITROGEN 24 mg/dl (7-17); CARBON DIOXIDE 24 mmol/L (22-30); GFR AFRICAN-AMERICAN > 60; TOTAL PROTEIN 6.9 G/DL (6.3-8.2)
[2017-04-10 19:30] LABS: ALKALINE PHOSPHATASE 158 U/L (38-126); ALT/SGPT 37 U/L (9-52); AST/SGOT 23 U/L (14-36); CALCIUM 9.1 mg/dL (8.4-10.2); GLUCOSE,RANDOM 93 mg/dL (65-105)
[2017-04-10 19:32] LABS: CHLORIDE 110 mmol/L (98-107); POTASSIUM 4.2 MMOL/L (3.6-5.0); SODIUM 144 mmol/l (132-148)
== END 2017-04-10 22:15 | disposition home or self-care (01) ==
LOC: H.ER 16:43
DX: N39.0 Urinary tract infection, site not specified (principal); R51 Headache; F32.9 Major depressive disorder, single episode, unspecified; F41.9 Anxiety disorder, unspecified; I10 Essential (primary) hypertension; I48.91 Unspecified atrial fibrillation; K21.9 Gastro-esophageal reflux disease without esophagitis; M06.9 Rheumatoid arthritis, unspecified; Z88.0 Allergy status to penicillin; Z90.49 Acquired absence of other specified parts of digestive tract; J44.9 Chronic obstructive pulmonary disease, unspecified
CPT/HCPCS: 70450; 74176; 80053; 81003; 82948; 85025; 87086; 96374; 99284; J2270

== ENCOUNTER 2017-05-15 16:30 | Inpatient (IN) | payer MEDICAID ==
[2017-05-15] MEDS: Albuterol-Ipratrop 3 mg / 0.5 (3 ml) UD IH STA ×2 (16:30→19:09)
[2017-05-15 16:34] VITALS: BMI 40.0
[2017-05-15] MEDS ORDERED: methylPREDNISolone 125 MG in Sodium Chloride 0.9% 50 ML IVPB STA (16:34)
[2017-05-15] MEDS ORDERED: Magnesium Sulfate 2 gm/50 ml 2 GM/50 ML BAG IVPB ONE (16:35)
[2017-05-15] MEDS ORDERED: Albuterol-Ipratrop 3 mg / 0.5 (3 ml) UD ONE ×2 (16:45→22:51)
--- NOTE | 2017-05-15 16:56 | ED PDOC ---
HPI: SOB/CHF/COPD Time Seen by Provider: 05/15/17 16:33 Chief Complaint (Nursing): Respiratory Distress History Per: Patient History/Exam Limitations: no limitations Onset/Duration Of Symptoms: Days (1), Gradual Current Symptoms Are (Timing): Still Present Current Respiratory Medications: See Home Med List Severity: Moderate Associated Symptoms: Leg/Calf Pain. denies: Fever, Chills, Sweating, Chest Pain , Bloody Cough, Productive Cough, Heart Racing, Ankle/Leg Swelling, Dizziness, Light-headedness, Anxiety Recently: Treated By A Physician Additional History Per: Patient, EMS Additional Complaint(s): pt seen by pmd in office and snt to ed via ems for resp distress asthma exacerbation chronic sx worse today. Past Medical History Reviewed: Historical Data, Nursing Documentation, Vital Signs Vital Signs: Last Vital Signs Temp 98.2 F 05/15/17 16:36 Pulse 70 05/15/17 16:36 Resp 23 05/15/17 17:17 BP 143/77 05/15/17 16:36 Pulse Ox 94 L 05/15/17 17:17 - Medical History PMH: Anemia, Anxiety, Arthritis, Asthma, Atrial Fibrillation, Bronchitis, Cardia Arrhythmia, COPD, Depression, Diverticulitis, Gastritis (ulcer), GERD, HTN, Pneumonia, Rheumatoid Arthritis Denies: HIV, Chronic Kidney Disease - Surgical History Surgical History: Cholecystectomy, (x3) - Family History Family History: States: Unknown Family Hx - Living Arrangements Living Arrangements: With Family - Immunization History Hx Tetanus Toxoid Vaccination: No Hx Influenza Vaccination: No Hx Pneumococcal Vaccination: No - Home Medications Home Medications: Ambulatory Orders Medication Instructions Recorded Albuterol 0.083% [Albuterol 0.083% 3 ml IH Q8H PRN 05/15/17 Inhal Esther (2.5 mg/3 ml) UD] Albuterol HFA [Ventolin HFA 90 2 puff IH Q4H PRN 05/15/17 mcg/actuation (8 g)] Alprazolam [Xanax] 1 mg PO QID 05/15/17 Azelastine HCl [Astepro] 1 spray DENISE BID PRN 05/15/17 Budesonide/Formoterol Fumarate 2 puff IH Q12H 05/15/17 [Symbicort 160-4.5 Mcg Inhaler] DULoxetine [Cymbalta] 60 mg PO DAILY 05/15/17 Gabapentin [Neurontin] 300 mg PO HS 05/15/17 Ibuprofen [Motrin Tab] 800 mg PO Q6H PRN 05/15/17 Ipratropium 0.02% [Atrovent] 2.5 ml IH Q8H PRN 05/15/17 Montelukast [Singulair] 10 mg PO HS 05/15/17 Omeprazole [Omeprazole] 20 mg PO BID 05/15/17 Ondansetron HCl [Zofran] 4 mg PO DAILY PRN 05/15/17 Oxycodone HCl/Acetaminophen 1 tab PO Q6H PRN 05/15/17 [Endocet 10-325 mg Tablet] Promethazine HCl/Codeine 10 ml PO Q4H PRN 05/15/17 [Prometh-Codein 6.25-10 mg/5 ml] QUEtiapine [Seroquel] 25 mg PO QPM 05/15/17 Topiramate [Topamax] 50 mg PO DAILY 05/15/17 Triazolam [Halcion] 0.5 mg PO HS 05/15/17 Zolpidem [Ambien] 10 mg PO HS 05/15/17 hydrOXYzine HCl [Atarax] 25 mg PO Q8H 05/15/17 traZODone [Desyrel] 100 mg PO HS 05/15/17 - Allergies Allergies/Adverse Reactions: Allergies Allergy/AdvReac Type Severity Reaction Status Date / Time ciprofloxacin [From Cipro] Allergy RASH Verified 05/15/17 16:36 ciprofloxacin HCl Allergy RASH Verified 05/15/17 16:36 [From Cipro] Penicillins Allergy RASH Verified 05/15/17 16:36 Review of Systems ROS Statement: Except As Marked, All Systems Reviewed And Found Negative Constitutional: Negative for: Fever, Chills Cardiovascular: Negative for: Chest Pain, Palpitations Respiratory: Positive for: Cough, Shortness of Breath, Wheezing. Negative for: SOB with Exertion, Pleuritic Pain Gastrointestinal: Negative for: Nausea, Vomiting, Abdominal Pain Neurological: Negative for: Weakness, Numbness Physical Exam - Reviewed Nursing Documentation Reviewed: Yes Vital Signs Reviewed: Yes - Physical Exam Appears: Positive for: Well Head Exam: Positive for: ATRAUMATIC, NORMAL INSPECTION, NORMOCEPHALIC Eye Exam: Positive for: Normal appearance, EOMI, PERRL ENT: Positive for: Pharynx Is (nml). Negative for: Tonsillar Exudate, Tonsillar Swelling Neck: Positive for: Normal, Painless ROM, Supple Cardiovascular/Chest: Positive for: Regular Rate, Rhythm, Chest Non Tender. Negative for: Edema, Gallop Respiratory: Positive for: Decreased Breath Sounds (mod), Accessory Muscle Use ( mod), Respiratory Distress (mod). Negative for: Crackles, Rales, Wheezing (mod) Pulses-Radial (L): 2+ Pulses-Radial (R): 2+ Gastrointestinal/Abdominal: Positive for: Normal Exam, Bowel Sounds, Soft, Other (obese). Negative for: Tenderness Back: Positive for: Normal Inspection. Negative for: L CVA Tenderness, R CVA Tenderness Extremity: Positive for: Normal ROM. Negative for: Tenderness, Pedal Edema, Calf Tenderness, Deformity, Swelling Neurologic/Psych: Positive for: Alert, tmd teacher assistant II-XII, Oriented, Mood/Affect ( anxious). Negative for: Motor/Sensory Deficits - Laboratory Results Result Diagrams: 05/15/17 16:50 05/15/17 16:50 - ECG ECG: Positive for: Interpreted By Id ECG Rhythm: Positive for: Normal QRS, Normal ST Segment, Sinus Rhythm (rate of 71). Negative for: ST/T Changes O2 Sat by Pulse Oximetry: 100 Pulse Ox Interpretation: Normal - Radiology X-Ray: Interpreted by Id X-Ray Interpretation: No Acute Disease - Progress ED Course And Treament: pt still hypoxic on ra will admit to [facility] per Dr goodwin. Re-evaluation Time: 18:30 Condition: Improved Disposition - Clinical Impression Clinical Impression: Status asthmaticus - Patient ED Disposition Is Patient to be Admitted: Yes Counseled Patient/Family Regarding: Studies Performed, Diagnosis - Disposition Disposition Time: 18:00 Condition: STABLE - Pt Status Changed To: Hospital Disposition Of: Inpatient - Admit Certification Admit to Inpatient:: After my assessment, the patient will require hospitalization for at least two midnights. This is because of the severity of symptoms shown, intensity of services needed, and/or the medical risk in this patient being treated as an outpatient. - POA Present On Arrival: None
[2017-05-15] MEDS ORDERED: Magnesium Sulfate 2 gm/50 ml 2 GM/50 ML BAG ONE (16:57)
[2017-05-15 17:01] LABS: BASO # 0.1 K/uL (0.0-0.2); EOS # 0.2 K/uL (0.0-0.7); EOS % 2.3 % (0.0-4.0); LYMPH # 1.9 K/uL (1.0-4.3); LYMPH % 20.1 % (20.0-40.0); MEAN CELL VOLUME 84.7 fl (81.0-99.0); MEAN CORPUSCULAR HEMOGLOBIN 27.1 pg (27.0-31.0); MONO # 0.9 K/uL (0.0-0.8); NEUT # 6.2 K/uL (1.8-7.0); NEUT % 66.6 % (50.0-75.0); NRBC % 0.1 % (0.0-0.0); WHITE BLOOD COUNT 9.3 K/uL (4.8-10.8)
[2017-05-15] MEDS ORDERED: Oxycodone/Acetaminophen 5/325 mg Tab PO STA ×2 (17:05→19:29)
[2017-05-15 17:08] LABS: CARBON DIOXIDE 20 mmol/L (22-30); CHLORIDE 111 mmol/L (98-107); GFR AFRICAN-AMERICAN > 60; GLUCOSE,RANDOM 90 mg/dL (65-105); SODIUM 142 mmol/l (132-148)
[2017-05-15] MEDS ORDERED: Morphine 4 MG/ML VIAL ONE ×3 (17:11→22:50)
[2017-05-15 17:20] LABS: BLOOD UREA NITROGEN 20 mg/dl (7-17); POTASSIUM 5.1 MMOL/L (3.6-5.0)
[2017-05-15 17:22] LABS: TOTAL PROTEIN 7.9 G/DL (6.3-8.2)
[2017-05-15 17:23] LABS: ALB/GLOB RATIO 1.2 (1.0-2.1); AST/SGOT 39 U/L (14-36); BILIRUBIN,TOTAL 0.7 mg/dl (0.2-1.3)
[2017-05-15] MEDS ORDERED: Morphine 4 MG/ML VIAL IVP STA ×2 (17:23→23:05)
[2017-05-15 17:24] LABS: ALKALINE PHOSPHATASE 159 U/L (38-126); ALT/SGPT 29 U/L (9-52)
[2017-05-15] MEDS ORDERED: Oxycodone/Acetaminophen 5/325 mg Tab ONE (19:29)
[2017-05-15] MEDS ORDERED: Morphine 4 MG/ML VIAL IV ONE (19:36)
[2017-05-15] MEDS ORDERED: Promethazine/Cod 6.25mg-10mg/5ml Syr UD ONE (22:50)
[2017-05-15] MEDS: Promethazine/Cod 6.25mg-10mg/5ml Syr UD PO PRN (22:53)
[2017-05-15] MEDS: Albuterol-Ipratrop 3 mg / 0.5 (3 ml) UD INH SCH (22:56)
[2017-05-15] MEDS ORDERED: MethylPREDNISolone 40 mg Vial IVP SCH (23:15)
[2017-05-16] MEDS ORDERED: Albuterol-Ipratrop 3 mg / 0.5 (3 ml) UD INH PRN (02:24)
[2017-05-16] MEDS ORDERED: methylPREDNISolone 40 MG in Sodium Chloride 0.9% 50 ML IV SCH (04:00)
[2017-05-16] MEDS ORDERED: MethylPREDNISolone 40 mg Vial IVP SCH (04:00)
[2017-05-16] MEDS: Albuterol-Ipratrop 3 mg / 0.5 (3 ml) UD INH SCH ×6 (05:25→23:32)
[2017-05-16 06:31] LABS: HEMATOCRIT 39.1 % (34.0-47.0); MEAN CORPUSCULAR HEMOGLOBIN 27.2 pg (27.0-31.0); MEAN CORPUSCULAR HGB CONC 32.8 g/dL (33.0-37.0); RED CELL DISTRIBUTION WIDTH 13.9 % (11.5-14.5)
[2017-05-16 06:42] LABS: ALB/GLOB RATIO 1.2 (1.0-2.1); ALKALINE PHOSPHATASE 145 U/L (38-126); ALT/SGPT 36 U/L (9-52); AST/SGOT 19 U/L (14-36); BILIRUBIN,TOTAL 0.2 mg/dl (0.2-1.3); BLOOD UREA NITROGEN 18 mg/dl (7-17); CALCIUM 8.9 mg/dL (8.4-10.2); CARBON DIOXIDE 23 mmol/L (22-30); CHLORIDE 109 mmol/L (98-107); CHOLESTEROL 180 mg/dL (0-199); GFR AFRICAN-AMERICAN > 60; GLUCOSE,RANDOM 172 mg/dL (65-105); POTASSIUM 4.2 MMOL/L (3.6-5.0); SODIUM 141 mmol/l (132-148); TOTAL PROTEIN 6.9 G/DL (6.3-8.2)
[2017-05-16 06:50] LABS: T4 8.24 ug/dl (5.5-11.0)
[2017-05-16 07:04] LABS: THYROID STIMULATING HORMONE 0.32 mIU/ML (0.46-4.68)
[2017-05-16] MEDS: Insulin Regular 100 units/ml SC SCH ×4 (08:16→21:50)
--- NOTE | 2017-05-16 08:39 | RAD ---
PROCEDURE: CHEST RADIOGRAPH, 1 VIEW HISTORY: sob COMPARISON: Chest radiograph dated 12/20/2016. FINDINGS: LUNGS: Clear. PLEURA: No pneumothorax or pleural fluid seen. CARDIOVASCULAR: Normal. OSSEOUS STRUCTURES: No significant abnormalities. VISUALIZED UPPER ABDOMEN: Normal. OTHER FINDINGS: None. IMPRESSION: No active disease.
[2017-05-16] MEDS ORDERED: Pantoprazole 40 mg EC Tab PO SCH (09:00)
[2017-05-16] MEDS ORDERED: ALPRAZOLAM 1 MG PO SCH (09:00)
[2017-05-16] MEDS: MethylPREDNISolone 40 mg Vial IVP SCH ×3 (09:02→21:23)
[2017-05-16 11:59] LABS: RBC URINE 1 /hpf (0-3); URINE BILIRUBIN NEGATIVE (NEGATIVE); URINE BLOOD SMALL (NEGATIVE); URINE COLOR STRAW (YELLOW); URINE GLUCOSE (UA) >=500 mg/dL (Normal); URINE KETONE NEGATIVE (NEGATIVE); URINE LEUKOCYTE ESTERASE NEG Leu/uL (Negative); URINE PROTEIN NEGATIVE (NEGATIVE); URINE UROBILINOGEN 0.2-1.0 mg/dL (0.2-1.0); WBC URINE < 1 /hpf (0-5)
[2017-05-16] MEDS: Promethazine/Cod 6.25mg-10mg/5ml Syr UD PO PRN (15:34)
[2017-05-16] MEDS: Fluticasone-Salmeterol 500-50mcg Diskus IH SCH ×2 (15:35→21:21)
--- NOTE | 2017-05-16 15:42 | CP.PCM.HP ---
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 Heavy smoker > 10 cigarettes daily. Also Pt c/o of Chronic L-S pain, L knee pain. Pt denied: Fever, chills, n/v/d, abdominal pain, urinary symptoms, productive or bloody cough, CP. palpitation, dizziness, numbness, sick contact, recent travel. CXR shows: No active disease. Present on Admission - Present on Admission Any Indicators Present on Admission: No Review of Systems - Constitutional Constitutional: Headache - EENT Eyes: Requires Corrective Lenses Ears: Other (negative) Nose/Mouth/Throat: Nasal Congestion - Cardiovascular Cardiovascular: Other (negative) - Respiratory Respiratory: Cough, Dyspnea, Dyspnea on Exertion, Wheezing - Gastrointestinal Gastrointestinal: Other (negative) - Genitourinary Genitourinary: Other (negative) - Musculoskeletal Musculoskeletal: Arthralgias, Back Pain, Other (L knee pain) - Integumentary Integumentary: Other (negative) - Neurological Neurological: Headaches - Psychiatric Psychiatric: Anxiety, Depression - Endocrine Endocrine: Other (negative) - Hematologic/Lymphatic Hematologic: Other (negative) Past Patient History - Tetanus Immunizations Tetanus Immunization: Unknown - Past Medical History & Family History Past Medical History?: Yes Pertinent Family History: Unknown - Past Social History Smoking Status: Light Smoker < 10 Cigarettes Daily Alcohol: None Drugs: Denies Home Situation {Lives}: Alone - CARDIAC Hx Cardiac Disorders: Yes Hx Atrial Fibrillation: Yes Hx Cardia Arrhythmia: Yes Hx Hypertension: Yes - PULMONARY Hx Respiratory Disorders: Yes Hx Asthma: Yes Hx Bronchitis: Yes Hx Chronic Obstructive Pulmonary Disease (COPD): Yes Hx Pneumonia: Yes - NEUROLOGICAL Hx Neurological Disorder: No - HEENT Hx HEENT Problems: Yes Other/Comment: Allergic Rhinitis - RENAL Hx Chronic Kidney Disease: No - ENDOCRINE/METABOLIC Hx Endocrine Disorders: Yes Hx Diabetes Mellitus Type 2: Yes - HEMATOLOGICAL/ONCOLOGICAL Hx Blood Disorders: Yes Hx Anemia: Yes Hx Human Immunodeficiency Virus (HIV): No - INTEGUMENTARY Hx Dermatological Problems: No - MUSCULOSKELETAL/RHEUMATOLOGICAL Hx Musculoskeletal Disorders: Yes Hx Arthritis: Yes (R-L knee.) Hx Falls: Yes Hx Rheumatoid Arthritis: Yes - GASTROINTESTINAL Hx Gastrointestinal Disorders: Yes Hx Diverticulitis: Yes Hx Gastritis: Yes (ulcer) - GENITOURINARY/GYNECOLOGICAL Hx Genitourinary Disorders: No - PSYCHIATRIC Hx Psychophysiologic Disorder: Yes Hx Anxiety: Yes Hx Depression: Yes Hx Substance Use: No - SURGICAL HISTORY Hx Surgeries: Yes Hx Cholecystectomy: Yes - ANESTHESIA Hx Anesthesia: Yes Hx Anesthesia Reactions: No Hx Malignant Hyperthermia: No Meds Allergies/Adverse Reactions: Allergies Allergy/AdvReac Type Severity Reaction Status Date / Time ciprofloxacin [From Cipro] Allergy RASH Verified 05/15/17 16:36 ciprofloxacin HCl Allergy RASH Verified 05/15/17 16:36 [From Cipro] Penicillins Allergy RASH Verified 05/15/17 16:36 Physical Exam - Constitutional Appears: No Acute Distress - Head Exam Head Exam: NORMAL INSPECTION - Eye Exam Eye Exam: PERRL - ENT Exam ENT Exam: Normal Exam - Neck Exam Neck exam: Positive for: Normal Inspection - Respiratory Exam Respiratory Exam: Decreased Breath Sounds, Wheezes - Cardiovascular Exam Cardiovascular Exam: REGULAR RHYTHM - GI/Abdominal Exam GI & Abdominal Exam: Normal Bowel Sounds, Soft - Extremities Exam Extremities exam: Positive for: tenderness (L knee) - Back Exam Back exam: tenderness (L-S) - Neurological Exam Neurological exam: Alert, Oriented x3 Additional comments: No motor sensory deficit - Psychiatric Exam Psychiatric exam: Anxious - Skin Skin Exam: Warm Results - Vital Signs Recent Vital Signs: Last Vital Signs Temp 97.5 F L 05/16/17 07:32 Pulse 75 05/16/17 07:32 Resp 18 05/16/17 07:32 BP 115/69 05/16/17 07:32 Pulse Ox 96 05/16/17 07:32 reviewed J.P> - Labs Result Diagrams: 05/16/17 05:20 05/16/17 05:20 Labs: Laboratory Results - last 24 hr 05/15/17 05/15/17 05/15/17 16:50 16:50 17:17 WBC 9.3 RBC 5.08 Hgb 13.8 Hct 43.0 MCV 84.7 MCH 27.1 MCHC 32.0 L RDW 14.0 Plt Count 279 MPV 10.0 Neut % (Auto) 66.6 Lymph % (Auto) 20.1 [place] % (Auto) 10.0 Eos % (Auto) 2.3 Baso % (Auto) 1.0 Neut # 6.2 Lymph # 1.9 [place] # 0.9 H Eos # 0.2 Baso # 0.1 Sodium 142 Potassium 5.1 H Chloride 111 H Carbon Dioxide 20 L Anion Gap 16 BUN 20 H Creatinine 0.9 Est GFR ( Amer) > 60 Est GFR (Non-Af Amer) > 60 POC Glucose (mg/dL) Random Glucose 90 Hemoglobin A1c Calcium 9.0 Total Bilirubin 0.7 AST 39 H D ALT 29 Alkaline Phosphatase 159 H Troponin I Total Protein 7.9 Albumin 4.3 Globulin 3.7 Albumin/Globulin Ratio 1.2 Triglycerides Cholesterol LDL Cholesterol Direct HDL Cholesterol Thyroxine (T4) TSH 3rd Generation Urine Color Urine Clarity Urine pH Ur Specific [place] Urine Protein Urine Glucose (UA) Urine Ketones Urine Blood Urine Nitrate Urine Bilirubin Urine Urobilinogen Ur Leukocyte Esterase Urine RBC (Auto) Urine Microscopic WBC Ur Squamous Epith Cells Grp A Beta Strep Ag Negative 05/15/17 05/15/17 05/16/17 18:18 22:14 02:24 WBC RBC Hgb Hct MCV MCH MCHC RDW Plt Count MPV Neut % (Auto) Lymph % (Auto) [place] % (Auto) Eos % (Auto) Baso % (Auto) Neut # Lymph # [place] # Eos # Baso # Sodium Potassium Chloride Carbon Dioxide Anion Gap BUN Creatinine Est GFR ( Amer) Est GFR (Non-Af Amer) POC Glucose (mg/dL) 246 H Random Glucose Hemoglobin A1c Calcium Total Bilirubin AST ALT Alkaline Phosphatase Troponin I < 0.0120 Total Protein Albumin Globulin Albumin/Globulin Ratio Triglycerides Cholesterol LDL Cholesterol Direct HDL Cholesterol Thyroxine (T4) TSH 3rd Generation Urine Color Straw Urine Clarity Clear Urine pH 6.0 Ur Specific [place] 1.013 Urine Protein Negative Urine Glucose (UA) >=500 Urine Ketones Negative Urine Blood Small Urine Nitrate Negative Urine Bilirubin Negative Urine Urobilinogen 0.2-1.0 Ur Leukocyte Esterase Neg Urine RBC (Auto) 1 Urine Microscopic WBC < 1 Ur Squamous Epith Cells < 1 Grp A Beta Strep Ag 05/16/17 05/16/17 05/16/17 05:20 05:20 05:20 WBC 7.0 RBC 4.71 Hgb 12.8 Hct 39.1 MCV 83.0 MCH 27.2 MCHC 32.8 L RDW 13.9 Plt Count 218 MPV Neut % (Auto) Lymph % (Auto) [place] % (Auto) Eos % (Auto) Baso % (Auto) Neut # Lymph # [place] # Eos # Baso # Sodium 141 Potassium 4.2 Chloride 109 H Carbon Dioxide 23 Anion Gap 13 BUN 18 H Creatinine 0.8 Est GFR ( Amer) > 60 Est GFR (Non-Af Amer) > 60 POC Glucose (mg/dL) Random Glucose 172 H Hemoglobin A1c 5.7 Calcium 8.9 Total Bilirubin 0.2 AST 19 ALT 36 Alkaline Phosphatase 145 H Troponin I Total Protein 6.9 Albumin 3.8 Globulin 3.1 Albumin/Globulin Ratio 1.2 Triglycerides 101 D Cholesterol 180 LDL Cholesterol Direct 93 HDL Cholesterol 63 Thyroxine (T4) 8.24 TSH 3rd Generation 0.32 L Urine Color Urine Clarity Urine pH Ur Specific [place] Urine Protein Urine Glucose (UA) Urine Ketones Urine Blood Urine Nitrate Urine Bilirubin Urine Urobilinogen Ur Leukocyte Esterase Urine RBC (Auto) Urine Microscopic WBC Ur Squamous Epith Cells Grp A Beta Strep Ag 05/16/17 07:36 WBC RBC Hgb Hct MCV MCH MCHC RDW Plt Count MPV Neut % (Auto) Lymph % (Auto) [place] % (Auto) Eos % (Auto) Baso % (Auto) Neut # Lymph # [place] # Eos # Baso # Sodium Potassium Chloride Carbon Dioxide Anion Gap BUN Creatinine Est GFR ( Amer) Est GFR (Non-Af Amer) POC Glucose (mg/dL) 147 H Random Glucose Hemoglobin A1c Calcium Total Bilirubin AST ALT Alkaline Phosphatase Troponin I Total Protein Albumin Globulin Albumin/Globulin Ratio Triglycerides Cholesterol LDL Cholesterol Direct HDL Cholesterol Thyroxine (T4) TSH 3rd Generation Urine Color Urine Clarity Urine pH Ur Specific [place] Urine Protein Urine Glucose (UA) Urine Ketones Urine Blood Urine Nitrate Urine Bilirubin Urine Urobilinogen Ur Leukocyte Esterase Urine RBC (Auto) Urine Microscopic WBC Ur Squamous Epith Cells Grp A Beta Strep Ag reviewed J.P. - Imaging and Cardiology Chest x-ray Status: Report reviewed by me (J.P.) Assessment & Plan (1) Asthma with COPD with exacerbation Status: Acute Priority: High (2) Headache Status: Acute Priority: High (3) Diabetes mellitus Status: Chronic Priority: High (4) HTN (hypertension) Status: Chronic Priority: Medium (5) Depression Status: Chronic Priority: Medium (6) Gastritis Status: Chronic Priority: Medium (7) Left knee pain Status: Chronic Priority: High (8) Lumbago Status: Chronic Priority: High (9) Anxiety Status: Chronic Priority: Medium (10) Insomnia Status: Chronic Priority: Medium - Assessment and Plan (Free Text) Plan: Continue O2 N/C, Solumedrol IV, Duoneb, Phenergan with Co, Singulair, Mucomyst and rest of Tx. - Date & Time Date: 05/16/17 Time: 09:00
[2017-05-16] MEDS: Acetylcysteine 10% 4 ML IH SCH (19:17)
[2017-05-16] MEDS: guaiFENesin 600 mg ER Tab PO SCH (21:21)
[2017-05-16] MEDS: Nystatin 100,000 Units/ml Oral Susp 5 ml UD PO SCH (23:33)
[2017-05-17] MEDS: MethylPREDNISolone 40 mg Vial IVP SCH ×4 (03:02→21:49)
[2017-05-17] MEDS: Albuterol-Ipratrop 3 mg / 0.5 (3 ml) UD INH SCH ×6 (04:10→23:31)
[2017-05-17] MEDS: Insulin Regular 100 units/ml SC SCH ×4 (07:10→21:42)
[2017-05-17] MEDS: Acetylcysteine 10% 4 ML IH SCH ×2 (07:29→19:41)
[2017-05-17] MEDS: Fluticasone-Salmeterol 500-50mcg Diskus IH SCH ×2 (08:08→21:49)
[2017-05-17] MEDS: guaiFENesin 600 mg ER Tab PO SCH ×2 (08:11→21:49)
[2017-05-17] MEDS: Nystatin 100,000 Units/ml Oral Susp 5 ml UD PO SCH ×4 (08:12→21:49)
[2017-05-17] MEDS: Enoxaparin 40 mg Syringe SC SCH (08:15)
[2017-05-17 08:20] LABS: CREATININE RANDOM URINE 55 mg/dL (20-320); MICROALBUMIN <0.2 mg/dL
--- NOTE | 2017-05-17 08:40 | PQF GENQUE ---
DR. Johnston, Please clarify type of asthma: if known: i.e. Mild intermittent Mild persistent Moderate persistent Severe persistent Other (please specify) OR: Clinically unable to determine OR: Unknown ER MD: Clinical Impression: Status asthmaticus H and P: Assessment Plan : (1) Asthma with COPD with exacerbation Status: Acute Priority: High Plan: Continue O2 N/C, Solumedrol IV, Duoneb, Phenergan with Co, Singulair, Mucomyst and rest of Tx. This form is a permanent part of the medical record Clarification of your documentation is requested to better reflect the severity of illness and intensity of treatment of your patient. Indicators present [] Specify: [] [] Specify: [] [] Specify: [] [] Specify: [] Location in the medical record that reflects the above clinical findings: [] Treatment Provided: [] PHYSICIAN'S RESPONSE Based on your medical judgment of the clinical indicators outlined above please clarify the following: [] Practitioner response [] If unable to determine, please check the box, sign and date. Present On Admission (POA) Indicator: [] Present at the time of admission [] Not present at the time of admission [] Clinically Undetermined In responding to this query, please exercise your independent professional judgment. The fact that a question is asked does not imply that any particular answer is desired or expected. Thank you for your clarification on this documentation. If you have any questions please call. * Thank you, Catrachita Drake RN ext. #[phone] MTDD
[2017-05-17] MEDS: Azithromycin 500 MG in Sodium Chloride 0.9% 250 ML IVPB SCH (14:52)
[2017-05-17] MEDS ORDERED: HYDROmorphone 0.5 mg/0.5 ml ISec IVP PRN (16:13)
--- NOTE | 2017-05-17 17:53 | CP.PCM.PN ---
Subjective - Date & Time of Evaluation Date of Evaluation: 05/17/17 Time of Evaluation: 10:00 - Subjective Subjective: F/U COPD Bronchial Asthma Exacerbation. Pt continue with chest tightness, productive cough, PICKARD, also c/o of pain in Lknee, L-S area. Objective - Vital Signs/Intake and Output Vital Signs (last 24 hours): Temp Pulse Resp BP Pulse Ox 97.4 F L 110 H 19 136/75 96 05/17/17 16:17 05/17/17 16:17 05/17/17 16:17 05/17/17 16:17 05/17/17 16:17 - Medications Medications: Current Medications Acetylcysteine (Mucomyst 10% 4ml) 2 ml IH RBID [facility] Last Admin: 05/17/17 07:29 Dose: 2 ml Albuterol/Ipratropium (Duoneb 3 Mg/0.5 Mg (3 Ml) Ud) 3 ml INH RQ4 [facility] Last Admin: 05/17/17 15:26 Dose: 3 ml Albuterol/Ipratropium (Duoneb 3 Mg/0.5 Mg (3 Ml) Ud) 3 ml INH RQ4 PRN PRN Reason: Shortness of Breath Alprazolam (Xanax) 1 mg PO QID [facility] Last Admin: 05/17/17 16:59 Dose: 1 mg Duloxetine HCl (Cymbalta) 60 mg PO DAILY [facility] Last Admin: 05/17/17 08:13 Dose: 60 mg Enoxaparin Sodium (Lovenox) 40 mg SC DAILY [facility] PRN Reason: Protocol Last Admin: 05/17/17 08:15 Dose: 40 mg Fluticasone Propionate (Flonase) 2 spr DENISE DAILY [facility] Last Admin: 05/17/17 08:09 Dose: 2 spr Gabapentin (Neurontin) 400 mg PO HS [facility] Last Admin: 05/16/17 23:33 Dose: 400 mg Guaifenesin (Mucinex La) 600 mg PO Q12 [facility] Last Admin: 05/17/17 08:11 Dose: 600 mg Hydromorphone HCl (Dilaudid) 1 mg IVP Q4 PRN PRN Reason: Pain, severe (8-10) Last Admin: 05/17/17 16:56 Dose: 1 mg Hydroxyzine HCl (Atarax) 25 mg PO Q8H [facility] Last Admin: 05/17/17 17:06 Dose: 25 mg Azithromycin 500 mg/ Sodium (Chloride) 250 mls @ 250 mls/hr IVPB DAILY [facility] PRN Reason: Protocol Last Admin: 05/17/17 14:52 Dose: 250 mls/hr Insulin Human Regular (Humulin R) 0 units SC ACHS [facility] PRN Reason: Protocol Last Admin: 05/17/17 17:02 Dose: 8 units Methylprednisolone (Solu-Medrol) 40 mg IVP Q6 [facility] Last Admin: 05/17/17 17:01 Dose: 40 mg Montelukast Sodium (Singulair) 10 mg PO HS [facility] Last Admin: 05/16/17 21:22 Dose: 10 mg Nicotine (Nicoderm Cq) 1 patch TD DAILY [facility] Last Admin: 05/17/17 08:12 Dose: 1 patch Nystatin (Nystatin Oral Susp) 5 ml PO QID [facility] Last Admin: 05/17/17 17:07 Dose: 5 ml Ondansetron HCl (Zofran Tab) 4 mg PO DAILY PRN PRN Reason: Nausea/Vomiting Pantoprazole Sodium (Protonix Inj) 40 mg IVP DAILY [facility] Last Admin: 05/17/17 08:10 Dose: 40 mg Promethazine HCl/Codeine (Phenergan/Codeine Oral Syrup) 10 ml PO Q4 PRN PRN Reason: Cough Last Admin: 05/16/17 15:34 Dose: 10 ml Quetiapine Fumarate (Seroquel) 25 mg PO QPM [facility] Last Admin: 05/17/17 17:05 Dose: 25 mg Fluticasone/Salmeterol (Advair Diskus 500/50) 1 puff IH Q12 [facility] Last Admin: 05/17/17 08:08 Dose: 1 puff Topiramate (Topamax) 50 mg PO DAILY [facility] Last Admin: 05/17/17 08:14 Dose: 50 mg Trazodone HCl (Desyrel) 100 mg PO HS [facility] Last Admin: 05/16/17 21:22 Dose: 100 mg Zolpidem Tartrate (Ambien) 5 mg PO HS PRN PRN Reason: Sleep Last Admin: 05/16/17 02:09 Dose: 5 mg - Labs Labs: 05/16/17 05:20 05/16/17 05:20 - Constitutional Appears: No Acute Distress - Head Exam Head Exam: NORMAL INSPECTION - Eye Exam Eye Exam: PERRL - ENT Exam ENT Exam: Normal Exam - Neck Exam Neck Exam: Normal Inspection - Respiratory Exam Respiratory Exam: Decreased Breath Sounds (b/l), Rhonchi (b/l), Wheezes - Cardiovascular Exam Cardiovascular Exam: REGULAR RHYTHM - GI/Abdominal Exam GI & Abdominal Exam: Soft, Normal Bowel Sounds - Extremities Exam Extremities Exam: Tenderness (L knee) - Back Exam Back Exam: tenderness (L-S) - Neurological Exam Neurological Exam: Alert, Oriented x3. absent: Motor Sensory Deficit - Psychiatric Exam Psychiatric exam: Anxious - Skin Skin Exam: Warm Assessment and Plan (1) Asthma with COPD with exacerbation Status: Acute (2) Headache Status: Acute (3) Diabetes mellitus Status: Chronic (4) HTN (hypertension) Status: Chronic (5) Gastritis Status: Chronic (6) Left knee pain Status: Chronic (7) Lumbago Status: Chronic (8) Anxiety Status: Chronic (9) Depression Status: Chronic (10) Insomnia Status: Chronic - Assessment and Plan (Free Text) Plan: Continue O2 NC 2 L/M, Zithromax, Duoneb, Solumedrol, Dilaudid and rest of Tx.
[2017-05-18] MEDS: MethylPREDNISolone 40 mg Vial IVP SCH ×2 (04:14→08:59)
[2017-05-18] MEDS: Albuterol-Ipratrop 3 mg / 0.5 (3 ml) UD INH SCH ×6 (05:01→23:11)
[2017-05-18] MEDS: Insulin Regular 100 units/ml SC SCH ×4 (06:29→21:02)
[2017-05-18 06:54] LABS: HEMATOCRIT 37.2 % (34.0-47.0); MEAN CELL VOLUME 82.7 fl (81.0-99.0); MEAN CORPUSCULAR HEMOGLOBIN 26.9 pg (27.0-31.0); MEAN CORPUSCULAR HGB CONC 32.6 g/dL (33.0-37.0); RED CELL DISTRIBUTION WIDTH 13.9 % (11.5-14.5); WHITE BLOOD COUNT 15.2 K/uL (4.8-10.8)
[2017-05-18 07:10] LABS: BLOOD UREA NITROGEN 24 mg/dl (7-17); CALCIUM 8.8 mg/dL (8.4-10.2); CARBON DIOXIDE 24 mmol/L (22-30); CHLORIDE 107 mmol/L (98-107); GFR AFRICAN-AMERICAN > 60; GLUCOSE,RANDOM 206 mg/dL (65-105); POTASSIUM 4.5 MMOL/L (3.6-5.0); SODIUM 141 mmol/l (132-148)
[2017-05-18] MEDS: Nystatin 100,000 Units/ml Oral Susp 5 ml UD PO SCH ×4 (08:58→21:09)
[2017-05-18] MEDS: Enoxaparin 40 mg Syringe SC SCH (08:58)
[2017-05-18] MEDS: Azithromycin 500 MG in Sodium Chloride 0.9% 250 ML IVPB SCH (08:59)
[2017-05-18] MEDS: Fluticasone-Salmeterol 500-50mcg Diskus IH SCH ×2 (08:59→20:20)
[2017-05-18] MEDS: guaiFENesin 600 mg ER Tab PO SCH ×2 (09:09→20:19)
[2017-05-18] MEDS: Acetylcysteine 10% 4 ML IH SCH ×2 (11:16→19:30)
--- NOTE | 2017-05-18 14:29 | CP.PCM.PN ---
Subjective - Date & Time of Evaluation Date of Evaluation: 05/18/17 Time of Evaluation: 11:00 - Subjective Subjective: F/U COPD Exacerbation. Cough productive , SOB , Chest congestion , no improvement , pain L knee Objective - Vital Signs/Intake and Output Vital Signs (last 24 hours): Temp Pulse Resp BP Pulse Ox 97.6 F 101 H 20 144/69 98 05/18/17 08:09 05/18/17 11:21 05/18/17 11:21 05/18/17 11:21 05/18/17 11:21 - Medications Medications: Current Medications Acetylcysteine (Mucomyst 10% 4ml) 2 ml IH RBID [facility] Last Admin: 05/18/17 11:16 Dose: 2 ml Albuterol/Ipratropium (Duoneb 3 Mg/0.5 Mg (3 Ml) Ud) 3 ml INH RQ4 [facility] Last Admin: 05/18/17 11:16 Dose: 3 ml Albuterol/Ipratropium (Duoneb 3 Mg/0.5 Mg (3 Ml) Ud) 3 ml INH RQ4 PRN PRN Reason: Shortness of Breath Last Admin: 05/18/17 06:29 Dose: 3 ml Alprazolam (Xanax) 1 mg PO QID [facility] Last Admin: 05/18/17 12:27 Dose: 1 mg Duloxetine HCl (Cymbalta) 60 mg PO DAILY [facility] Last Admin: 05/18/17 09:10 Dose: 60 mg Enoxaparin Sodium (Lovenox) 40 mg SC DAILY [facility] PRN Reason: Protocol Last Admin: 05/18/17 08:58 Dose: 40 mg Fluticasone Propionate (Flonase) 2 spr DENISE DAILY [facility] Last Admin: 05/18/17 09:00 Dose: 2 spr Gabapentin (Neurontin) 400 mg PO HS [facility] Last Admin: 05/17/17 21:49 Dose: 400 mg Guaifenesin (Mucinex La) 600 mg PO Q12 [facility] Last Admin: 05/18/17 09:09 Dose: 600 mg Hydromorphone HCl (Dilaudid) 1 mg IVP Q4 PRN PRN Reason: Pain, severe (8-10) Last Admin: 05/18/17 13:25 Dose: 1 mg Hydroxyzine HCl (Atarax) 25 mg PO Q8H [facility] Last Admin: 05/18/17 09:09 Dose: 25 mg Azithromycin 500 mg/ Sodium (Chloride) 250 mls @ 250 mls/hr IVPB DAILY [facility] PRN Reason: Protocol Last Admin: 05/18/17 08:59 Dose: 250 mls/hr Insulin Human Regular (Humulin R) 0 units SC ACHS [facility] PRN Reason: Protocol Last Admin: 05/18/17 12:27 Dose: 6 units Methylprednisolone (Solu-Medrol) 50 mg IV Q6 [facility] Montelukast Sodium (Singulair) 10 mg PO HS [facility] Last Admin: 05/17/17 21:49 Dose: 10 mg Nicotine (Nicoderm Cq) 1 patch TD DAILY [facility] Last Admin: 05/18/17 08:59 Dose: 1 patch Nystatin (Nystatin Oral Susp) 5 ml PO QID [facility] Last Admin: 05/18/17 12:27 Dose: 5 ml Ondansetron HCl (Zofran Tab) 4 mg PO DAILY PRN PRN Reason: Nausea/Vomiting Pantoprazole Sodium (Protonix Inj) 40 mg IVP DAILY [facility] Last Admin: 05/18/17 08:58 Dose: 40 mg Promethazine HCl/Codeine (Phenergan/Codeine Oral Syrup) 10 ml PO Q4 PRN PRN Reason: Cough Last Admin: 05/16/17 15:34 Dose: 10 ml Quetiapine Fumarate (Seroquel) 25 mg PO QPM [facility] Last Admin: 05/17/17 17:05 Dose: 25 mg Fluticasone/Salmeterol (Advair Diskus 500/50) 1 puff IH Q12 [facility] Last Admin: 05/18/17 08:59 Dose: 1 puff Topiramate (Topamax) 50 mg PO DAILY [facility] Last Admin: 05/18/17 09:09 Dose: 50 mg Trazodone HCl (Desyrel) 100 mg PO HS [facility] Last Admin: 05/17/17 21:49 Dose: 100 mg Zolpidem Tartrate (Ambien) 5 mg PO HS PRN PRN Reason: Sleep Last Admin: 05/16/17 02:09 Dose: 5 mg - Labs Labs: 05/18/17 05:55 05/18/17 05:55 - Constitutional Appears: No Acute Distress - Head Exam Head Exam: NORMAL INSPECTION - Eye Exam Eye Exam: PERRL - ENT Exam ENT Exam: Normal Exam - Neck Exam Neck Exam: Normal Inspection - Respiratory Exam Respiratory Exam: Decreased Breath Sounds, Rhonchi, Wheezes - Cardiovascular Exam Cardiovascular Exam: REGULAR RHYTHM - GI/Abdominal Exam GI & Abdominal Exam: Soft, Normal Bowel Sounds - Extremities Exam Extremities Exam: Tenderness (L knee) - Back Exam Back Exam: tenderness - Neurological Exam Neurological Exam: Alert, Oriented x3. absent: Motor Sensory Deficit - Psychiatric Exam Psychiatric exam: Anxious - Skin Skin Exam: Warm Assessment and Plan (1) Asthma with COPD with exacerbation Status: Acute (2) Headache Status: Acute (3) Diabetes mellitus Status: Chronic (4) HTN (hypertension) Status: Chronic (5) Gastritis Status: Chronic (6) Left knee pain Status: Chronic (7) Lumbago Status: Chronic (8) Anxiety Status: Chronic (9) Depression Status: Chronic (10) Insomnia Status: Chronic - Assessment and Plan (Free Text) Plan: Increase Solu Medrol 50mg q 6 hs, continue , Duoneb , Mucomyst , Humibid , Prometh with Codeine , Dilaudid
[2017-05-18] MEDS ORDERED: methylPREDNISolone 50 MG in Sodium Chloride 0.9% 50 ML IV SCH (16:00)
[2017-05-19] MEDS ORDERED: Sodium Chloride 3% for Inhalation 4 ML VIAL.NEB IH PRN (00:47)
[2017-05-19] MEDS: Albuterol-Ipratrop 3 mg / 0.5 (3 ml) UD INH SCH ×6 (04:52→23:16)
[2017-05-19] MEDS: Insulin Regular 100 units/ml SC SCH ×4 (06:58→23:36)
[2017-05-19] MEDS: Acetylcysteine 10% 4 ML IH SCH ×2 (07:16→20:00)
[2017-05-19] MEDS: Fluticasone-Salmeterol 500-50mcg Diskus IH SCH ×2 (09:39→22:35)
[2017-05-19] MEDS: guaiFENesin 600 mg ER Tab PO SCH ×2 (09:42→22:36)
[2017-05-19] MEDS: Nystatin 100,000 Units/ml Oral Susp 5 ml UD PO SCH ×3 (09:43→23:32)
[2017-05-19] MEDS: Azithromycin 500 MG in Sodium Chloride 0.9% 250 ML IVPB SCH (09:59)
[2017-05-19 10:16] LABS: HEMATOCRIT 38.3 % (34.0-47.0); MEAN CORPUSCULAR HEMOGLOBIN 26.8 pg (27.0-31.0); MEAN CORPUSCULAR HGB CONC 31.9 g/dL (33.0-37.0); WHITE BLOOD COUNT 11.5 K/uL (4.8-10.8)
[2017-05-19] MEDS: Enoxaparin 40 mg Syringe SC SCH (10:56)
--- NOTE | 2017-05-19 11:52 | RAD ---
HISTORY: f/u, sob, cough COMPARISON: Chest radiograph dated 05/15/2017. TECHNIQUE: Chest PA and lateral FINDINGS: LUNGS: No active pulmonary disease. PLEURA: No significant pleural effusion identified. No pneumothorax apparent. CARDIOVASCULAR: Normal. OSSEOUS STRUCTURES: No significant abnormalities. VISUALIZED UPPER ABDOMEN: Normal. OTHER FINDINGS: None. IMPRESSION: No active disease.
[2017-05-19] MEDS ORDERED: methylPREDNISolone 75 MG in Sodium Chloride 0.9% 50 ML IV ONE (13:30)
[2017-05-19 13:32] LABS: ABG ALLEN TEST YES; ARTERIAL BLOOD FLOW 3; ARTERIAL BLOOD GAS HCO3 26.3 mmol/L (21-28); ARTERIAL BLOOD GAS MODE NC; ARTERIAL BLOOD GAS O2 CAPACITY 16.6 mL/dL (16-24); ARTERIAL BLOOD GAS O2 CONTENT 15.9 ML/dL (15-23); ARTERIAL BLOOD GAS PH 7.42 (7.35-7.45); ARTERIAL BLOOD GAS PO2 59 mm/Hg (80-100); ARTERIAL BLOOD HGB O2 SAT 92.6 % (95.0-98.0); HHB 3.9 % (0.0-5.0); METHEMOGLOBIN 1.5 % (0.0-3.0)
--- NOTE | 2017-05-19 13:39 | PCM.RRT ---
<Miguel Barger - Last Filed: 05/19/17 13:49> I.Reason for TRADES HELPER - A) Acute Change in Patient: Subjective: TRADES HELPER Reason by patient: Numbness of Tongue TRADES HELPER called by RN concern for numbness of tongue and enlargement S: Pt. seen at bedside. PMD Dr. Johnston at bedside. Pt. states she is having trouble breathing and feels her tongue is numb. Pt. denies difficulty swallowing , chest pain, shortness of breath, drooling, fever, chills, or chest pressure. O: General: Obese, Speaking full sentences Mouth: No tounge swelling or angioedema of lips Resp: No respiratory distress, no accessory muscle use, no stridor, scattered wheezing Cardio: S1-S2, RRR Psych: Anxious TRADES HELPER Interventions: 1- ABG- PH 7.4 2- EKG- NSR 3- Oxygen NC at 2L A/P: 56 y.o. female admitted for asthma exacerbation with complaint of Numbness of tongue. 1- Transfer to Telemetry 2- Consult ENT- Dr. Rosas call placed 3- Continue current medical management 4- Keep NPO until evaluation by ENT TRADES HELPER Leader: Dr. Li TRADES HELPER Resident: Dr. Barger <Rachel Li - Last Filed: 05/19/17 17:02> TRADES HELPER Nurse Assessment - Vital Signs Vital Signs: Rapid Response Vital Sign Blood Pressure 106/78 Pulse Rate 88 Respiratory Rate 24 Temperature 97.6 F Oxygen Saturation 95 - Vital Signs at end of TRADES HELPER Vital Signs at end of TRADES HELPER: Rapid Response End Vital Sign Blood Pressure 134/51 Pulse Rate 81 Respiratory Rate 20 Temperature 97.6 F O2 Sat by Pulse Oximetry 95 Attending/Attestation - Attestation I have personally seen and examined this patient.: Yes I have fully participated in the care of the patient.: Yes I have reviewed all pertinent clinical information, including history, physical exam and plan: Yes Notes (Text): TRADES HELPER was called bec pt felt that her "tongue was swollen" Pt's PMD - Dr Johnston was at bedside during the TRADES HELPER. Pt was noted to be wheezing no fever Pt denies intake of any new food pt has been on the same meds since admission and has taken all the meds previously not on any EDIS inh denies difficulty swallowing, voice is the same, no recent hoarsenes nor change in voice, speaks in full sentence no evidence of stridor - ABG , EKG - discued case with Dr Johnston - rec to transfer pt to Telemetry for monitoring - rec to call ENT Dr Rosas for consult
--- NOTE | 2017-05-19 16:23 | CP.PCM.PN ---
Subjective - Date & Time of Evaluation Date of Evaluation: 05/19/17 Time of Evaluation: 16:17 - Subjective Subjective: see below Objective - Vital Signs/Intake and Output Vital Signs (last 24 hours): Temp Pulse Resp BP Pulse Ox 97.4 F L 76 18 126/85 90 L 05/19/17 14:02 05/19/17 14:02 05/19/17 14:02 05/19/17 14:02 05/19/17 14:02 - Medications Medications: Current Medications Acetylcysteine (Mucomyst 10% 4ml) 3 ml IH RTID [facility] Albuterol/Ipratropium (Duoneb 3 Mg/0.5 Mg (3 Ml) Ud) 3 ml INH RQ4 [facility] Last Admin: 05/19/17 15:25 Dose: 3 ml Albuterol/Ipratropium (Duoneb 3 Mg/0.5 Mg (3 Ml) Ud) 3 ml INH RQ4 PRN PRN Reason: Shortness of Breath Last Admin: 05/18/17 06:29 Dose: 3 ml Alprazolam (Xanax) 1 mg PO QID [facility] Last Admin: 05/19/17 09:56 Dose: 1 mg Duloxetine HCl (Cymbalta) 60 mg PO DAILY [facility] Last Admin: 05/19/17 09:41 Dose: 60 mg Enoxaparin Sodium (Lovenox) 40 mg SC DAILY [facility] PRN Reason: Protocol Last Admin: 05/19/17 10:56 Dose: 40 mg Fluticasone Propionate (Flonase) 2 spr DENISE DAILY [facility] Last Admin: 05/19/17 09:42 Dose: 2 spr Gabapentin (Neurontin) 400 mg PO HS [facility] Last Admin: 05/18/17 21:13 Dose: 400 mg Guaifenesin (Mucinex La) 600 mg PO Q12 [facility] Last Admin: 05/19/17 09:42 Dose: 600 mg Hydromorphone HCl (Dilaudid) 2 mg IVP Q4 PRN PRN Reason: Pain, severe (8-10) Last Admin: 05/19/17 15:08 Dose: 2 mg Hydroxyzine HCl (Atarax) 25 mg PO Q8H [facility] Last Admin: 05/19/17 09:41 Dose: 25 mg Azithromycin 500 mg/ Sodium (Chloride) 250 mls @ 250 mls/hr IVPB DAILY [facility] PRN Reason: Protocol Last Admin: 05/19/17 09:59 Dose: 250 mls/hr Insulin Human Regular (Humulin R) 0 units SC ACHS [facility] PRN Reason: Protocol Last Admin: 05/19/17 13:32 Dose: 2 units Methylprednisolone (Solu-Medrol) 50 mg IV Q6 [facility] Last Admin: 05/19/17 11:18 Dose: 50 mg Montelukast Sodium (Singulair) 10 mg PO HS [facility] Last Admin: 05/18/17 21:12 Dose: 10 mg Nicotine (Nicoderm Cq) 1 patch TD DAILY [facility] Last Admin: 05/19/17 09:43 Dose: 1 patch Nystatin (Nystatin Oral Susp) 5 ml PO QID [facility] Last Admin: 05/19/17 09:43 Dose: 5 ml Ondansetron HCl (Zofran Tab) 4 mg PO DAILY PRN PRN Reason: Nausea/Vomiting Pantoprazole Sodium (Protonix Inj) 40 mg IVP DAILY [facility] Last Admin: 05/19/17 09:44 Dose: 40 mg Promethazine HCl/Codeine (Phenergan/Codeine Oral Syrup) 10 ml PO Q4 PRN PRN Reason: Cough Last Admin: 05/16/17 15:34 Dose: 10 ml Quetiapine Fumarate (Seroquel) 25 mg PO QPM [facility] Last Admin: 05/18/17 17:05 Dose: 25 mg Fluticasone/Salmeterol (Advair Diskus 500/50) 1 puff IH Q12 [facility] Last Admin: 05/19/17 09:39 Dose: 1 puff Topiramate (Topamax) 50 mg PO DAILY [facility] Last Admin: 05/19/17 09:56 Dose: 50 mg Trazodone HCl (Desyrel) 100 mg PO HS [facility] Last Admin: 05/18/17 21:12 Dose: 100 mg Zolpidem Tartrate (Ambien) 5 mg PO HS PRN PRN Reason: Sleep Last Admin: 05/18/17 22:04 Dose: 5 mg - Labs Labs: 05/19/17 10:11 05/18/17 05:55 Assessment and Plan - Assessment and Plan (Free Text) Assessment: ENT Consult HPI 56 y/o female admitted with asthma exacerbation c/o more than 6 months of intermittent problems with swallowing pills and meat. She sometimes feels the food get stuck and she has to spit it out. Today she had an episode associated with swallowing her pills, and an SPORTS DOCTOR was called. No throat pain. No voice changes, although she has deep voice at baseline. She is a smoker for many years, current 1 pack q3 days. PMH asthma Meds see list in chart Exam awake, alert, comfortable breathing comfortably, no stridor neck soft, no masses or swelling oc/op clear; no tongue swelling; no floor of mouth swelling; no palate swelling ; crowded oropharynx secondary to her anatomy Fiberoptic Laryngoscopy: no swelling in the hypopharynx or larynx; +ve Mark's edema (smokers polyps) of R>L vocal cords that is non-obstructing. (the vocal cords have the typical appearance of smoker's polyps and not other types of lesions) Impression dysphagia Recommend Speech/swallow evaluation o/p f/u with me or other ENT to follow smokers polyps inportance of smoking cessation stressed with patient daughter present at bedside for entire encounter
--- NOTE | 2017-05-19 17:29 | CP.PCM.PN ---
Subjective - Date & Time of Evaluation Date of Evaluation: 05/19/17 Time of Evaluation: 13:00 - Subjective Subjective: F/U COPD Bronchial Asthma Exacerbation Pt c/o of tongue numbness, seen by [facility], breathing slightly better, chest congestion slightly improved. Objective - Vital Signs/Intake and Output Vital Signs (last 24 hours): Temp Pulse Resp BP Pulse Ox 97.7 F 81 16 125/85 98 05/19/17 16:23 05/19/17 16:23 05/19/17 16:23 05/19/17 16:23 05/19/17 16:23 - Medications Medications: Current Medications Acetylcysteine (Mucomyst 10% 4ml) 3 ml IH RTID [facility] Albuterol/Ipratropium (Duoneb 3 Mg/0.5 Mg (3 Ml) Ud) 3 ml INH RQ4 [facility] Last Admin: 05/19/17 15:25 Dose: 3 ml Albuterol/Ipratropium (Duoneb 3 Mg/0.5 Mg (3 Ml) Ud) 3 ml INH RQ4 PRN PRN Reason: Shortness of Breath Last Admin: 05/18/17 06:29 Dose: 3 ml Alprazolam (Xanax) 1 mg PO QID [facility] Last Admin: 05/19/17 16:46 Dose: 1 mg Duloxetine HCl (Cymbalta) 60 mg PO DAILY [facility] Last Admin: 05/19/17 09:41 Dose: 60 mg Enoxaparin Sodium (Lovenox) 40 mg SC DAILY [facility] PRN Reason: Protocol Last Admin: 05/19/17 10:56 Dose: 40 mg Fluticasone Propionate (Flonase) 2 spr DENISE DAILY [facility] Last Admin: 05/19/17 09:42 Dose: 2 spr Gabapentin (Neurontin) 400 mg PO HS [facility] Last Admin: 05/18/17 21:13 Dose: 400 mg Guaifenesin (Mucinex La) 600 mg PO Q12 [facility] Last Admin: 05/19/17 09:42 Dose: 600 mg Hydromorphone HCl (Dilaudid) 2 mg IVP Q4 PRN PRN Reason: Pain, severe (8-10) Last Admin: 05/19/17 15:08 Dose: 2 mg Hydroxyzine HCl (Atarax) 25 mg PO Q8H [facility] Last Admin: 05/19/17 09:41 Dose: 25 mg Azithromycin 500 mg/ Sodium (Chloride) 250 mls @ 250 mls/hr IVPB DAILY [facility] PRN Reason: Protocol Last Admin: 05/19/17 09:59 Dose: 250 mls/hr Insulin Human Regular (Humulin R) 0 units SC ACHS [facility] PRN Reason: Protocol Last Admin: 05/19/17 16:50 Dose: 2 units Methylprednisolone (Solu-Medrol) 50 mg IV Q6 [facility] Last Admin: 05/19/17 11:18 Dose: 50 mg Montelukast Sodium (Singulair) 10 mg PO HS [facility] Last Admin: 05/18/17 21:12 Dose: 10 mg Nicotine (Nicoderm Cq) 1 patch TD DAILY [facility] Last Admin: 05/19/17 09:43 Dose: 1 patch Nystatin (Nystatin Oral Susp) 5 ml PO QID [facility] Last Admin: 05/19/17 09:43 Dose: 5 ml Ondansetron HCl (Zofran Tab) 4 mg PO DAILY PRN PRN Reason: Nausea/Vomiting Pantoprazole Sodium (Protonix Inj) 40 mg IVP DAILY [facility] Last Admin: 05/19/17 09:44 Dose: 40 mg Promethazine HCl/Codeine (Phenergan/Codeine Oral Syrup) 10 ml PO Q4 PRN PRN Reason: Cough Last Admin: 05/16/17 15:34 Dose: 10 ml Quetiapine Fumarate (Seroquel) 25 mg PO QPM [facility] Last Admin: 05/18/17 17:05 Dose: 25 mg Fluticasone/Salmeterol (Advair Diskus 500/50) 1 puff IH Q12 [facility] Last Admin: 05/19/17 09:39 Dose: 1 puff Topiramate (Topamax) 50 mg PO DAILY [facility] Last Admin: 05/19/17 09:56 Dose: 50 mg Trazodone HCl (Desyrel) 100 mg PO HS [facility] Last Admin: 05/18/17 21:12 Dose: 100 mg Zolpidem Tartrate (Ambien) 5 mg PO HS PRN PRN Reason: Sleep Last Admin: 05/18/17 22:04 Dose: 5 mg - Labs Labs: 05/19/17 10:11 05/18/17 05:55 - Constitutional Appears: Chronically Ill - Head Exam Head Exam: NORMAL INSPECTION - Eye Exam Eye Exam: PERRL - ENT Exam ENT Exam: Normal Exam Additional comments: Deferred until seen by ENT - Neck Exam Neck Exam: Normal Inspection Additional comments: No stridor - Respiratory Exam Respiratory Exam: Decreased Breath Sounds (b/l), Rhonchi (b/l), Wheezes (b/l) - Cardiovascular Exam Cardiovascular Exam: REGULAR RHYTHM - GI/Abdominal Exam GI & Abdominal Exam: Soft, Normal Bowel Sounds - Extremities Exam Extremities Exam: Tenderness (L knee) - Back Exam Back Exam: tenderness (L-S) - Neurological Exam Neurological Exam: Alert, Oriented x3. absent: Motor Sensory Deficit - Psychiatric Exam Psychiatric exam: Anxious - Skin Skin Exam: Warm Assessment and Plan (1) Asthma with COPD with exacerbation Status: Acute (2) Headache Status: Acute (3) Diabetes mellitus Status: Chronic (4) HTN (hypertension) Status: Chronic (5) Gastritis Status: Chronic (6) Left knee pain Status: Chronic (7) Lumbago Status: Chronic (8) Anxiety Status: Chronic (9) Depression Status: Chronic (10) Insomnia Status: Chronic (11) Numbness of tongue Status: Acute - Assessment and Plan (Free Text) Plan: F/U ENT consult, continue Duoneb, Solumedrol, Zithromax and rest of Tx.
[2017-05-20] MEDS: Albuterol-Ipratrop 3 mg / 0.5 (3 ml) UD INH SCH ×6 (06:07→23:27)
[2017-05-20] MEDS: Acetylcysteine 10% 4 ML IH SCH ×2 (08:45→19:42)
[2017-05-20] MEDS: Fluticasone-Salmeterol 500-50mcg Diskus IH SCH ×2 (09:08→22:01)
[2017-05-20] MEDS: guaiFENesin 600 mg ER Tab PO SCH ×2 (09:09→22:03)
[2017-05-20] MEDS: Enoxaparin 40 mg Syringe SC SCH (09:09)
[2017-05-20] MEDS: Nystatin 100,000 Units/ml Oral Susp 5 ml UD PO SCH ×5 (09:10→22:13)
[2017-05-20] MEDS: Insulin Regular 100 units/ml SC SCH ×4 (09:10→23:00)
--- NOTE | 2017-05-20 09:59 | CP.PCM.PN ---
Subjective - Date & Time of Evaluation Date of Evaluation: 05/20/17 Time of Evaluation: 09:59 - Subjective Subjective: pt seen examined bedside for COPD exacerbation AFIB. Pt comfortable, continues to have wheezing. HD stable, NAD. Objective - Vital Signs/Intake and Output Vital Signs (last 24 hours): Temp Pulse Resp BP Pulse Ox 97.7 F 79 18 118/73 95 05/20/17 08:00 05/20/17 08:00 05/20/17 08:00 05/20/17 08:00 05/20/17 08:00 - Medications Medications: Current Medications Acetylcysteine (Mucomyst 10% 4ml) 3 ml IH RTID [facility] Last Admin: 05/19/17 20:00 Dose: Not Given Albuterol/Ipratropium (Duoneb 3 Mg/0.5 Mg (3 Ml) Ud) 3 ml INH RQ4 [facility] Last Admin: 05/20/17 08:46 Dose: 3 ml Albuterol/Ipratropium (Duoneb 3 Mg/0.5 Mg (3 Ml) Ud) 3 ml INH RQ4 PRN PRN Reason: Shortness of Breath Last Admin: 05/18/17 06:29 Dose: 3 ml Alprazolam (Xanax) 1 mg PO QID [facility] Last Admin: 05/20/17 09:16 Dose: 1 mg Duloxetine HCl (Cymbalta) 60 mg PO DAILY [facility] Last Admin: 05/20/17 09:12 Dose: 60 mg Enoxaparin Sodium (Lovenox) 40 mg SC DAILY [facility] PRN Reason: Protocol Last Admin: 05/20/17 09:09 Dose: 40 mg Fluticasone Propionate (Flonase) 2 spr DENISE DAILY [facility] Last Admin: 05/20/17 09:09 Dose: 2 spr Gabapentin (Neurontin) 400 mg PO HS [facility] Last Admin: 05/19/17 22:37 Dose: 400 mg Guaifenesin (Mucinex La) 600 mg PO Q12 [facility] Last Admin: 05/20/17 09:09 Dose: 600 mg Hydromorphone HCl (Dilaudid) 2 mg IVP Q4 PRN PRN Reason: Pain, severe (8-10) Last Admin: 05/20/17 06:22 Dose: 2 mg Hydroxyzine HCl (Atarax) 25 mg PO Q8H [facility] Last Admin: 05/20/17 09:08 Dose: 25 mg Azithromycin 500 mg/ Sodium (Chloride) 250 mls @ 250 mls/hr IVPB DAILY [facility] PRN Reason: Protocol Last Admin: 05/19/17 09:59 Dose: 250 mls/hr Insulin Human Regular (Humulin R) 0 units SC ACHS [facility] PRN Reason: Protocol Last Admin: 05/20/17 09:10 Dose: 2 units Methylprednisolone (Solu-Medrol) 50 mg IV Q6 [facility] Last Admin: 05/20/17 09:11 Dose: 50 mg Montelukast Sodium (Singulair) 10 mg PO HS [facility] Last Admin: 05/19/17 22:37 Dose: 10 mg Nicotine (Nicoderm Cq) 1 patch TD DAILY [facility] Last Admin: 05/20/17 09:07 Dose: 1 patch Nystatin (Nystatin Oral Susp) 5 ml PO QID [facility] Last Admin: 05/20/17 09:10 Dose: 5 ml Ondansetron HCl (Zofran Tab) 4 mg PO DAILY PRN PRN Reason: Nausea/Vomiting Pantoprazole Sodium (Protonix Inj) 40 mg IVP DAILY [facility] Last Admin: 05/20/17 09:10 Dose: 40 mg Promethazine HCl/Codeine (Phenergan/Codeine Oral Syrup) 10 ml PO Q4 PRN PRN Reason: Cough Last Admin: 05/16/17 15:34 Dose: 10 ml Quetiapine Fumarate (Seroquel) 25 mg PO QPM [facility] Last Admin: 05/19/17 17:58 Dose: 25 mg Fluticasone/Salmeterol (Advair Diskus 500/50) 1 puff IH Q12 [facility] Last Admin: 05/20/17 09:08 Dose: 1 puff Topiramate (Topamax) 50 mg PO DAILY [facility] Last Admin: 05/20/17 09:12 Dose: 50 mg Trazodone HCl (Desyrel) 100 mg PO HS [facility] Last Admin: 05/19/17 22:35 Dose: 100 mg Zolpidem Tartrate (Ambien) 5 mg PO HS PRN PRN Reason: Sleep Last Admin: 05/19/17 23:47 Dose: 5 mg - Labs Labs: 05/19/17 10:11 05/18/17 05:55 - Constitutional Appears: Non-toxic, No Acute Distress - Head Exam Head Exam: ATRAUMATIC, NORMOCEPHALIC - Eye Exam Eye Exam: EOMI, Normal appearance, PERRL Pupil Exam: NORMAL ACCOMODATION - ENT Exam ENT Exam: Mucous Membranes Moist, Normal Exam - Respiratory Exam Respiratory Exam: Wheezes. absent: Rhonchi, Respiratory Distress - Cardiovascular Exam Cardiovascular Exam: +S1, +S2. absent: Murmur Additional comments: regular rate - GI/Abdominal Exam GI & Abdominal Exam: Soft (obese), Normal Bowel Sounds. absent: Tenderness - Extremities Exam Extremities Exam: Full ROM, Normal Capillary Refill - Back Exam Back Exam: absent: CVA tenderness (L), CVA tenderness (R) - Neurological Exam Neurological Exam: Alert, Awake - Psychiatric Exam Psychiatric exam: Normal Affect, Normal Mood - Skin Skin Exam: Dry, Warm Assessment and Plan - Assessment and Plan (Free Text) Plan: 56F smoker, PMHx of COPD, Asthma, Hx AFib, knee pain, anxiety, depression, DM brought to ER for evaluation of SOB, despite using pulmonary home medications. Pt was also given Depomedrol in Dr. Johnston's office but did not have relief. COPD exacerbation continue bronchodilators continue Solumedrol Sputum Cx + gram neg rods Promethazine/Codeine [Phenergan/Codeine Oral Syrup] 10 ml PO Q4 PRN Albuterol/Ipratropium [Duoneb 3 mg/0.5 mg (3 ml) UD] 3 ml INH RQ4 VMontelukast [Singulair] 10 mg PO HS Montelukast [Singulair] 10 mg PO HS Albuterol/Ipratropium [Duoneb 3 mg/0.5 mg (3 ml) UD] 3 ml INH RQ4 PRN Fluticasone Propionate [Flonase] 2 spr DENISE DAILY Fluticasone/Salmeterol 500/50 [Advair Diskus 500/50] 1 puff IH Q12 guaiFENesin [Mucinex LA] 600 mg PO Q12 Azithromycin [Zithromax] 500 mg Sodium Chloride 0.9% [Sodium Chloride 0.9% ADDVANTAGE] 250 ml IVPB DAILY methylPREDNISolone [SOLU-Medrol] 50 mg IV Q6 Sodium Chloride for Inhalation [Sodium Chloride 3% for Inhalation] 4 ml IH ONCE PRN Acetylcysteine [Mucomyst 10% 4ML] 3 ml IH RTID DM VS. hyperglycemia 2/2 steroid use Accuchecks Insulin Human Regular [HumuLIN R] See Protocol SC ACHS AFIB rate controlled NSR no medications Episode of dysphagia evaluated by Dr. Alison MYERS to restart heart healthy diet speech and swallow eval recommended Nausea Ondansetron [Zofran Tab] 4 mg PO DAILY PRN Itching? hydrOXYzine HCl [Atarax] 25 mg PO Q8H Insomnia Zolpidem [Ambien] 5 mg PO HS PRN Knee pain Gabapentin [Neurontin] 400 mg PO HS HYDROmorphone [Dilaudid] 2 mg IVP Q4 PRN Depression/Anxiety traZODone [Desyrel] 100 mg PO HS ALPRAZolam [Xanax] 1 mg PO QID DULoxetine [Cymbalta] 60 mg PO DAILY QUEtiapine [SEROquel] 25 mg PO QPM Topiramate [Topamax] 50 mg PO DAILY [facility] Nicotine 21 mg/24 hr [Nicoderm CQ] 1 patch TD DAILY Thrush? Nystatin [Nystatin Oral Susp] 5 ml PO QID Enoxaparin [Lovenox] 40 mg SC DAILY Anticoagulation Clinical Indication: DVT/PE Prevention
[2017-05-20] MEDS: Azithromycin 500 MG in Sodium Chloride 0.9% 250 ML IVPB SCH (11:49)
--- NOTE | 2017-05-20 12:53 | CARD ---
APPROVED REPORT EKG Measurement Heart [id number] <Conclusion> Normal sinus rhythm Normal ECG
[2017-05-21] MEDS: Albuterol-Ipratrop 3 mg / 0.5 (3 ml) UD INH SCH ×6 (04:01→23:52)
[2017-05-21] MEDS: Acetylcysteine 10% 4 ML IH SCH (07:51)
[2017-05-21] MEDS: Nystatin 100,000 Units/ml Oral Susp 5 ml UD PO SCH ×4 (08:20→21:50)
[2017-05-21] MEDS: guaiFENesin 600 mg ER Tab PO SCH ×2 (08:21→21:51)
[2017-05-21] MEDS: Enoxaparin 40 mg Syringe SC SCH (08:21)
[2017-05-21] MEDS: Insulin Regular 100 units/ml SC SCH ×4 (08:22→21:58)
[2017-05-21] MEDS: Azithromycin 500 MG in Sodium Chloride 0.9% 250 ML IVPB SCH (08:24)
[2017-05-21] MEDS: Fluticasone-Salmeterol 500-50mcg Diskus IH SCH ×2 (10:50→21:50)
--- NOTE | 2017-05-21 11:18 | CP.PCM.PN ---
Subjective - Date & Time of Evaluation Date of Evaluation: 05/21/17 Time of Evaluation: 11:11 - Subjective Subjective: patient seen examined bedside for COPD exacerbation. Culture and sensitivities returned for enterobacter cloacae. Ceftriaxone initiated. Duonebs increased to q3 hours. Pt states she would like her pain medicine even when she is sleeping and has insisted the nurse wake her to evaluate her pain scale despite her sleeping. I explained if she is sleeping, she does not require these medications , as she is able to sleep comfortably. HD stable NAD. Objective - Vital Signs/Intake and Output Vital Signs (last 24 hours): Temp Pulse Resp BP Pulse Ox 97.6 F 74 18 116/73 98 05/21/17 08:00 05/21/17 08:00 05/21/17 08:00 05/21/17 08:00 05/21/17 08:00 Intake and Output: Constitutional- cooperative, awake, alert. Head- NCAT, PERRL Eye- PERRL, normal accommodation ENT- normal exam, MMM. Neck- normal inspection, supple, no JVD Respiratory- Continues to have wheezes and rhonchi throughout Cardiovascular- RRR, +S1, +S2 no MRG GI/Abdominal- normal bowel sounds, soft Skin- warm, dry Extremities Exam- normal capillary refill, normal inspection Neurological Exam- alert, oriented Psych- normal mood, normal affect - Medications Medications: Current Medications Acetylcysteine (Mucomyst 10% 4ml) 3 ml IH RTID [facility] Last Admin: 05/21/17 07:51 Dose: Not Given Albuterol/Ipratropium (Duoneb 3 Mg/0.5 Mg (3 Ml) Ud) 3 ml INH RQ4 [facility] Last Admin: 05/21/17 07:25 Dose: 3 ml Albuterol/Ipratropium (Duoneb 3 Mg/0.5 Mg (3 Ml) Ud) 3 ml INH RQ4 PRN PRN Reason: Shortness of Breath Last Admin: 05/18/17 06:29 Dose: 3 ml Alprazolam (Xanax) 1 mg PO QID [facility] Last Admin: 05/21/17 08:19 Dose: 1 mg Duloxetine HCl (Cymbalta) 60 mg PO DAILY [facility] Last Admin: 05/21/17 08:21 Dose: 60 mg Enoxaparin Sodium (Lovenox) 40 mg SC DAILY [facility] PRN Reason: Protocol Last Admin: 05/21/17 08:21 Dose: 40 mg Fluticasone Propionate (Flonase) 2 spr DENISE DAILY [facility] Last Admin: 05/21/17 08:20 Dose: 2 spr Gabapentin (Neurontin) 400 mg PO HS [facility] Last Admin: 05/20/17 22:04 Dose: 400 mg Guaifenesin (Mucinex La) 600 mg PO Q12 [facility] Last Admin: 05/21/17 08:21 Dose: 600 mg Hydromorphone HCl (Dilaudid) 2 mg IVP Q4 PRN PRN Reason: Pain, severe (8-10) Last Admin: 05/21/17 08:18 Dose: 2 mg Hydroxyzine HCl (Atarax) 25 mg PO Q8H [facility] Last Admin: 05/21/17 08:21 Dose: 25 mg Azithromycin 500 mg/ Sodium (Chloride) 250 mls @ 250 mls/hr IVPB DAILY [facility] PRN Reason: Protocol Last Admin: 05/21/17 08:24 Dose: 250 mls/hr Insulin Human Regular (Humulin R) 0 units SC ACHS [facility] PRN Reason: Protocol Last Admin: 05/21/17 08:22 Dose: 2 units Methylprednisolone (Solu-Medrol) 50 mg IV Q6 [facility] Last Admin: 05/21/17 10:49 Dose: 50 mg Montelukast Sodium (Singulair) 10 mg PO HS [facility] Last Admin: 05/20/17 22:03 Dose: 10 mg Nicotine (Nicoderm Cq) 1 patch TD DAILY [facility] Last Admin: 05/21/17 08:20 Dose: 1 patch Nystatin (Nystatin Oral Susp) 5 ml PO QID [facility] Last Admin: 05/21/17 08:20 Dose: 5 ml Ondansetron HCl (Zofran Tab) 4 mg PO DAILY PRN PRN Reason: Nausea/Vomiting Pantoprazole Sodium (Protonix Inj) 40 mg IVP DAILY [facility] Last Admin: 05/21/17 08:20 Dose: 40 mg Promethazine HCl/Codeine (Phenergan/Codeine Oral Syrup) 10 ml PO Q4 PRN PRN Reason: Cough Last Admin: 05/16/17 15:34 Dose: 10 ml Quetiapine Fumarate (Seroquel) 25 mg PO QPM [facility] Last Admin: 05/20/17 18:37 Dose: 25 mg Fluticasone/Salmeterol (Advair Diskus 500/50) 1 puff IH Q12 [facility] Last Admin: 05/21/17 10:50 Dose: 1 puff Topiramate (Topamax) 50 mg PO DAILY [facility] Last Admin: 05/21/17 08:21 Dose: 50 mg Trazodone HCl (Desyrel) 100 mg PO HS [facility] Last Admin: 05/20/17 22:04 Dose: 100 mg Zolpidem Tartrate (Ambien) 5 mg PO HS PRN PRN Reason: Sleep Last Admin: 05/19/17 23:47 Dose: 5 mg - Labs Labs: 05/19/17 10:11 05/18/17 05:55 Assessment and Plan - Assessment and Plan (Free Text) Plan: 56F smoker, PMHx of COPD, Asthma, Hx AFib, knee pain, anxiety, depression, DM brought to ER for evaluation of SOB, despite using pulmonary home medications. Pt was also given Depomedrol in Dr. Johnston's office but did not have relief. Sputum Cx + Enterobacter Cloacae SSP Cloac. Sensitive to: Ceftriaxone, Aztreonam , Zosyn, Bactrim, Carbapenems, Cefepime, Cipro (ALLERGIC), Gentamycin, Moxifloxacin. Resistant to Cefazolin. 05/21/17 Continues to be wheezing and rhonchi. Increased freqencies of duonebs to q3 Initiated Ceftriaxone today : 05/21/17 afebrile, CBC pending TRANSFER BACK TO [facility] COPD exacerbation continue bronchodilators continue Solumedrol Sputum Cx + gram neg rods, sensitivies returned INITIATED CEFTRIAXONE Promethazine/Codeine [Phenergan/Codeine Oral Syrup] 10 ml PO Q4 PRN Albuterol/Ipratropium [Duoneb 3 mg/0.5 mg (3 ml) UD] 3 ml INH RQ3 VMontelukast [Singulair] 10 mg PO HS Montelukast [Singulair] 10 mg PO HS Albuterol/Ipratropium [Duoneb 3 mg/0.5 mg (3 ml) UD] 3 ml INH RQ4 PRN Fluticasone Propionate [Flonase] 2 spr DENISE DAILY Fluticasone/Salmeterol 500/50 [Advair Diskus 500/50] 1 puff IH Q12 guaiFENesin [Mucinex LA] 600 mg PO Q12 Azithromycin [Zithromax] 500 mg Sodium Chloride 0.9% [Sodium Chloride 0.9% ADDVANTAGE] 250 ml IVPB DAILY methylPREDNISolone [SOLU-Medrol] 50 mg IV Q6 Sodium Chloride for Inhalation [Sodium Chloride 3% for Inhalation] 4 ml IH ONCE PRN Acetylcysteine [Mucomyst 10% 4ML] 3 ml IH RTID DM VS. hyperglycemia 2/2 steroid use Accuchecks Insulin Human Regular [HumuLIN R] See Protocol SC ACHS AFIB rate controlled NSR no medications Episode of dysphagia evaluated by Dr. Rosas [place] to restart heart healthy diet speech and swallow eval recommended Nausea Ondansetron [Zofran Tab] 4 mg PO DAILY PRN Itching? hydrOXYzine HCl [Atarax] 25 mg PO Q8H Insomnia Zolpidem [Ambien] 5 mg PO HS PRN Knee pain Gabapentin [Neurontin] 400 mg PO HS HYDROmorphone [Dilaudid] 2 mg IVP Q4 PRN Depression/Anxiety traZODone [Desyrel] 100 mg PO HS ALPRAZolam [Xanax] 1 mg PO QID DULoxetine [Cymbalta] 60 mg PO DAILY QUEtiapine [SEROquel] 25 mg PO QPM Topiramate [Topamax] 50 mg PO DAILY [facility] Nicotine 21 mg/24 hr [Nicoderm CQ] 1 patch TD DAILY Thrush? Nystatin [Nystatin Oral Susp] 5 ml PO QID Enoxaparin [Lovenox] 40 mg SC DAILY Anticoagulation Clinical Indication: DVT/PE Prevention
[2017-05-21 12:12] LABS: HEMATOCRIT 39.2 % (34.0-47.0); LYMPH # 0.8 K/uL (1.0-4.3); LYMPH % 8.2 % (20.0-40.0); MEAN CELL VOLUME 83.2 fl (81.0-99.0); MEAN CORPUSCULAR HEMOGLOBIN 27.1 pg (27.0-31.0); MEAN CORPUSCULAR HGB CONC 32.6 g/dL (33.0-37.0); MONO # 0.6 K/uL (0.0-0.8); MONO % 5.7 % (0.0-10.0); NEUT # 8.7 K/uL (1.8-7.0); NEUT % 86.1 % (50.0-75.0); PLATELET COUNT 219 K/uL (130-400); RED CELL DISTRIBUTION WIDTH 13.7 % (11.5-14.5); WHITE BLOOD COUNT 10.1 K/uL (4.8-10.8)
[2017-05-21 12:26] LABS: BLOOD UREA NITROGEN 34 mg/dl (7-17); CARBON DIOXIDE 28 mmol/L (22-30); CHLORIDE 104 mmol/L (98-107); GFR AFRICAN-AMERICAN > 60; GLUCOSE,RANDOM 187 mg/dL (65-105); POTASSIUM 4.1 MMOL/L (3.6-5.0); SODIUM 140 mmol/l (132-148)
[2017-05-21 12:45] LABS: NEUTROPHIL 88 % (42-75); TOTAL CELLS COUNTED 100
[2017-05-21] MEDS: cefTRIAXone IV 1 gm in Dextros 50 ML IVPB SCH (12:50)
[2017-05-22] MEDS: Albuterol-Ipratrop 3 mg / 0.5 (3 ml) UD INH SCH ×8 (02:00→23:09)
[2017-05-22 06:30] LABS: BLOOD UREA NITROGEN 33 mg/dl (7-17); CALCIUM 7.8 mg/dL (8.4-10.2); CARBON DIOXIDE 28 mmol/L (22-30); CHLORIDE 107 mmol/L (98-107); GFR AFRICAN-AMERICAN > 60; GLUCOSE,RANDOM 172 mg/dL (65-105); SODIUM 139 mmol/l (132-148)
[2017-05-22 06:34] LABS: HEMATOCRIT 39.6 % (34.0-47.0); MEAN CELL VOLUME 84.6 fl (81.0-99.0); MEAN CORPUSCULAR HEMOGLOBIN 26.3 pg (27.0-31.0); MEAN CORPUSCULAR HGB CONC 31.1 g/dL (33.0-37.0); RED CELL DISTRIBUTION WIDTH 13.7 % (11.5-14.5); WHITE BLOOD COUNT 11.1 K/uL (4.8-10.8)
[2017-05-22] MEDS: Insulin Regular 100 units/ml SC SCH ×4 (06:37→21:41)
[2017-05-22] MEDS: Acetylcysteine 10% 4 ML IH SCH (07:27)
[2017-05-22] MEDS: Fluticasone-Salmeterol 500-50mcg Diskus IH SCH ×2 (09:21→21:14)
[2017-05-22] MEDS: guaiFENesin 600 mg ER Tab PO SCH (09:23)
[2017-05-22] MEDS: Enoxaparin 40 mg Syringe SC SCH (09:23)
[2017-05-22] MEDS: Nystatin 100,000 Units/ml Oral Susp 5 ml UD PO SCH ×4 (09:25→21:14)
--- NOTE | 2017-05-22 10:54 | CP.PCM.PN ---
Subjective - Date & Time of Evaluation Date of Evaluation: 05/22/17 Time of Evaluation: 10:46 - Subjective Subjective: patient seen and examined at bedside for COPD exacerbation. On examination, patient exerting herself +tracheal wheeze. When instructed to breathe normally, wheezing has improved since yesterday, though still tight. HD stable, NAD. Objective - Vital Signs/Intake and Output Vital Signs (last 24 hours): Temp Pulse Resp BP Pulse Ox 98.4 F 66 20 119/81 97 05/22/17 07:54 05/22/17 07:54 05/22/17 07:54 05/22/17 07:54 05/22/17 07:54 Vitals Reviewed GEN: WDWN, OBESE, ALERT, COOPERATIVE HEENT: NCAT, PERRL, EOMI HEART: RRR, +S1S2, NO MRG LUNG: +tracheal wheezing, improved breath sounds bilaterally, continues to have wheeze and mild rhonchi ABD: SOFT, NT, ND, NO HSM, NO MASSES EXT: NORMAL PEDAL PULSES, GOOD CAPILLARY REFILL NEURO: AAOX3, STRENGTH EQUAL BILATERAL UPPER AND LOWER EXTREMITIES SKIN: WARM, DRY PSYCH: NORMAL MOOD, NORMAL AFFECT - Medications Medications: Current Medications Acetylcysteine (Mucomyst 10% 4ml) 3 ml IH RTID [facility] Last Admin: 05/22/17 07:27 Dose: 3 ml Albuterol/Ipratropium (Duoneb 3 Mg/0.5 Mg (3 Ml) Ud) 3 ml INH RQ4 PRN PRN Reason: Shortness of Breath Last Admin: 05/18/17 06:29 Dose: 3 ml Albuterol/Ipratropium (Duoneb 3 Mg/0.5 Mg (3 Ml) Ud) 3 ml INH RQ3 [facility] Last Admin: 05/22/17 07:27 Dose: 3 ml Alprazolam (Xanax) 1 mg PO QID [facility] Last Admin: 05/22/17 09:30 Dose: 1 mg Duloxetine HCl (Cymbalta) 60 mg PO DAILY [facility] Last Admin: 05/22/17 09:23 Dose: 60 mg Enoxaparin Sodium (Lovenox) 40 mg SC DAILY [facility] PRN Reason: Protocol Last Admin: 05/22/17 09:23 Dose: 40 mg Fluticasone Propionate (Flonase) 2 spr DENISE DAILY [facility] Last Admin: 05/22/17 09:23 Dose: 2 spr Gabapentin (Neurontin) 400 mg PO HS [facility] Last Admin: 05/21/17 21:51 Dose: 400 mg Guaifenesin (Mucinex La) 600 mg PO Q12 [facility] Last Admin: 05/22/17 09:23 Dose: 600 mg Hydromorphone HCl (Dilaudid) 2 mg IVP Q4 PRN PRN Reason: Pain, severe (8-10) Last Admin: 05/22/17 10:32 Dose: 2 mg Hydroxyzine HCl (Atarax) 25 mg PO Q8H [facility] Last Admin: 05/22/17 09:22 Dose: 25 mg Azithromycin 500 mg/ Sodium (Chloride) 250 mls @ 250 mls/hr IVPB DAILY [facility] PRN Reason: Protocol Last Admin: 05/21/17 08:24 Dose: 250 mls/hr Ceftriaxone Sodium (Rocephin Iv 1 Gm Duplex) 50 mls @ 50 mls/hr IVPB DAILY [facility] PRN Reason: Protocol Last Admin: 05/21/17 12:50 Dose: 50 mls/hr Insulin Human Regular (Humulin R) 0 units SC ACHS [facility] PRN Reason: Protocol Last Admin: 05/22/17 06:37 Dose: 2 units Methylprednisolone (Solu-Medrol) 50 mg IV Q6 [facility] Last Admin: 05/22/17 10:35 Dose: 50 mg Montelukast Sodium (Singulair) 10 mg PO HS [facility] Last Admin: 05/21/17 21:51 Dose: 10 mg Nicotine (Nicoderm Cq) 1 patch TD DAILY [facility] Last Admin: 05/22/17 09:24 Dose: 1 patch Nystatin (Nystatin Oral Susp) 5 ml PO QID [facility] Last Admin: 05/22/17 09:25 Dose: 5 ml Ondansetron HCl (Zofran Tab) 4 mg PO DAILY PRN PRN Reason: Nausea/Vomiting Pantoprazole Sodium (Protonix Inj) 40 mg IVP DAILY [facility] Last Admin: 05/22/17 09:25 Dose: 40 mg Promethazine HCl/Codeine (Phenergan/Codeine Oral Syrup) 10 ml PO Q4 PRN PRN Reason: Cough Last Admin: 05/16/17 15:34 Dose: 10 ml Quetiapine Fumarate (Seroquel) 25 mg PO QPM [facility] Last Admin: 05/21/17 17:12 Dose: 25 mg Fluticasone/Salmeterol (Advair Diskus 500/50) 1 puff IH Q12 [facility] Last Admin: 05/22/17 09:21 Dose: 1 puff Topiramate (Topamax) 50 mg PO DAILY [facility] Last Admin: 05/22/17 09:25 Dose: 50 mg Trazodone HCl (Desyrel) 100 mg PO HS [facility] Last Admin: 05/21/17 21:51 Dose: 100 mg Zolpidem Tartrate (Ambien) 5 mg PO HS PRN PRN Reason: Sleep Last Admin: 05/21/17 22:04 Dose: 5 mg - Labs Labs: 05/22/17 05:45 05/22/17 05:45 Assessment and Plan - Assessment and Plan (Free Text) Plan: 56F smoker, PMHx of COPD, Asthma, Hx AFib, knee pain, anxiety, depression, DM brought to ER for evaluation of SOB, despite using pulmonary home medications. Pt was also given Depomedrol in Dr. Johnston's office but did not have relief. Sputum Cx + Enterobacter Cloacae SSP Cloac. Sensitive to: Ceftriaxone, Aztreonam , Zosyn, Bactrim, Carbapenems, Cefepime, Cipro (ALLERGIC), Gentamycin, Moxifloxacin. Resistant to Cefazolin. 05/21/17 Continues to be wheezing and rhonchi. Increased freqencies of duonebs to q3 Initiated Ceftriaxone today : 05/21/17 afebrile, CBC pending TRANSFER BACK TO [facility] [place] 05/22/17 wheezing improving but not resolved. duonebs, around the clock day 2 ceftriaxone afebrile WBC mild elevation 2/2 steroids COPD exacerbation continue bronchodilators continue Solumedrol Sputum Cx + gram neg rods, sensitivies returned INITIATED CEFTRIAXONE day 2 Promethazine/Codeine [Phenergan/Codeine Oral Syrup] 10 ml PO Q4 PRN Albuterol/Ipratropium [Duoneb 3 mg/0.5 mg (3 ml) UD] 3 ml INH RQ3 VMontelukast [Singulair] 10 mg PO HS Montelukast [Singulair] 10 mg PO HS Albuterol/Ipratropium [Duoneb 3 mg/0.5 mg (3 ml) UD] 3 ml INH RQ4 PRN Fluticasone Propionate [Flonase] 2 spr DENISE DAILY Fluticasone/Salmeterol 500/50 [Advair Diskus 500/50] 1 puff IH Q12 guaiFENesin [Mucinex LA] 600 mg PO Q12 Azithromycin [Zithromax] 500 mg Sodium Chloride 0.9% [Sodium Chloride 0.9% ADDVANTAGE] 250 ml IVPB DAILY methylPREDNISolone [SOLU-Medrol] 50 mg IV Q6 Sodium Chloride for Inhalation [Sodium Chloride 3% for Inhalation] 4 ml IH ONCE PRN Acetylcysteine [Mucomyst 10% 4ML] 3 ml IH RTID DM VS. hyperglycemia 2/2 steroid use Accuchecks Insulin Human Regular [HumuLIN R] See Protocol SC ACHS AFIB rate controlled NSR no medications Episode of dysphagia evaluated by Dr. Alison MYERS to restart heart healthy diet speech and swallow eval recommended Nausea Ondansetron [Zofran Tab] 4 mg PO DAILY PRN Itching? hydrOXYzine HCl [Atarax] 25 mg PO Q8H Insomnia Zolpidem [Ambien] 5 mg PO HS PRN Knee pain Gabapentin [Neurontin] 400 mg PO HS HYDROmorphone [Dilaudid] 2 mg IVP Q4 PRN Depression/Anxiety traZODone [Desyrel] 100 mg PO HS ALPRAZolam [Xanax] 1 mg PO QID DULoxetine [Cymbalta] 60 mg PO DAILY QUEtiapine [SEROquel] 25 mg PO QPM Topiramate [Topamax] 50 mg PO DAILY TOBACCO ABUSE Nicotine 21 mg/24 hr [Nicoderm CQ] 1 patch TD DAILY Thrush? Nystatin [Nystatin Oral Susp] 5 ml PO QID Enoxaparin [Lovenox] 40 mg SC DAILY Anticoagulation Clinical Indication: DVT/PE Prevention
[2017-05-22] MEDS ORDERED: Oxycodone/Acetaminophen 5/325 mg Tab PO PRN (11:10)
[2017-05-22] MEDS: cefTRIAXone IV 1 gm in Dextros 50 ML IVPB SCH (11:21)
--- NOTE | 2017-05-22 11:27 | CP.PCM.PCO ---
Assessment & Plan - Assessment and Plan (Free Text) Assessment: 56 yr old F with pmhx AFib, chronic smoker, copd admitted with asthma exacerbation, sob, cough sputum cx + enterobacter pt. will require 1 week of rocehphin 1 gm iv daily, Zithromax 500 mg iv daily and Solumedrol taper 50 mg iv q 6h
[2017-05-22] MEDS ORDERED: guaiFENesin 200 mg/10 ml Syrup UD PO PRN (11:51)
[2017-05-22] MEDS: Azithromycin 500 MG in Sodium Chloride 0.9% 250 ML IVPB SCH (15:25)
[2017-05-23] MEDS: Albuterol-Ipratrop 3 mg / 0.5 (3 ml) UD INH SCH ×9 (01:28→22:12)
[2017-05-23] MEDS: Insulin Regular 100 units/ml SC SCH ×4 (07:50→21:49)
[2017-05-23] MEDS: cefTRIAXone IV 1 gm in Dextros 50 ML IVPB SCH (08:57)
[2017-05-23] MEDS: Enoxaparin 40 mg Syringe SC SCH (08:58)
[2017-05-23] MEDS: Fluticasone-Salmeterol 500-50mcg Diskus IH SCH ×2 (08:58→21:18)
[2017-05-23] MEDS: Nystatin 100,000 Units/ml Oral Susp 5 ml UD PO SCH ×4 (08:58→21:19)
[2017-05-23] MEDS: Azithromycin 500 MG in Sodium Chloride 0.9% 250 ML IVPB SCH (12:26)
[2017-05-23] MEDS: Oxycodone/Acetaminophen 5/325 mg Tab PO PRN ×2 (14:30→23:00)
[2017-05-23 16:23] VITALS: RESP 20
--- NOTE | 2017-05-23 16:41 | CP.PCM.PN ---
Subjective - Date & Time of Evaluation Date of Evaluation: 05/23/17 Time of Evaluation: 12:15 - Subjective Subjective: No fever still with episode of SOB and wheezing NO CP no abd pain tolerating regular diet requesting for pain meds - states she takes Percocet at home Objective - Vital Signs/Intake and Output Vital Signs (last 24 hours): Temp Pulse Resp BP Pulse Ox 98.8 F 96 H 20 116/73 96 05/23/17 16:23 05/23/17 16:23 05/23/17 16:23 05/23/17 16:23 05/23/17 16:23 - Medications Medications: Current Medications Albuterol/Ipratropium (Duoneb 3 Mg/0.5 Mg (3 Ml) Ud) 3 ml INH RQ4 PRN PRN Reason: Shortness of Breath Last Admin: 05/18/17 06:29 Dose: 3 ml Albuterol/Ipratropium (Duoneb 3 Mg/0.5 Mg (3 Ml) Ud) 3 ml INH RQ3 [facility] Last Admin: 05/23/17 15:50 Dose: 3 ml Alprazolam (Xanax) 1 mg PO BID [facility] Last Admin: 05/23/17 09:07 Dose: 1 mg Duloxetine HCl (Cymbalta) 60 mg PO DAILY [facility] Last Admin: 05/23/17 09:00 Dose: 60 mg Enoxaparin Sodium (Lovenox) 40 mg SC DAILY [facility] PRN Reason: Protocol Last Admin: 05/23/17 08:58 Dose: 40 mg Fluticasone Propionate (Flonase) 2 spr DENISE DAILY [facility] Last Admin: 05/23/17 08:57 Dose: 2 spr Gabapentin (Neurontin) 400 mg PO HS [facility] Last Admin: 05/22/17 21:15 Dose: 400 mg Guaifenesin (Robitussin) 200 mg PO Q6 PRN PRN Reason: Cough Hydroxyzine HCl (Atarax) 25 mg PO Q8H [facility] Last Admin: 05/23/17 08:59 Dose: 25 mg Azithromycin 500 mg/ Sodium (Chloride) 250 mls @ 250 mls/hr IVPB DAILY [facility] PRN Reason: Protocol Last Admin: 05/23/17 12:26 Dose: 250 mls/hr Ceftriaxone Sodium (Rocephin Iv 1 Gm Duplex) 50 mls @ 50 mls/hr IVPB DAILY [facility] PRN Reason: Protocol Last Admin: 05/23/17 08:57 Dose: 50 mls/hr Ibuprofen (Motrin Tab) 600 mg PO Q6 PRN PRN Reason: Pain, severe (8-10) Last Admin: 05/23/17 15:13 Dose: 600 mg Insulin Human Regular (Humulin R) 0 units SC ACHS [facility] PRN Reason: Protocol Last Admin: 05/23/17 12:30 Dose: 6 units Ketorolac Tromethamine (Toradol) 30 mg IVP Q6 PRN PRN Reason: Pain, moderate (4-7) Last Admin: 05/23/17 10:36 Dose: 30 mg Methylprednisolone (Solu-Medrol) 50 mg IV Q8 [facility] Montelukast Sodium (Singulair) 10 mg PO HS [facility] Last Admin: 05/22/17 21:14 Dose: 10 mg Nicotine (Nicoderm Cq) 1 patch TD DAILY [facility] Last Admin: 05/23/17 08:59 Dose: 1 patch Nystatin (Nystatin Oral Susp) 5 ml PO QID [facility] Last Admin: 05/23/17 13:07 Dose: 5 ml Ondansetron HCl (Zofran Tab) 4 mg PO DAILY PRN PRN Reason: Nausea/Vomiting Oxycodone/Acetaminophen (Percocet 5/325 Mg Tab) 1 tab PO Q8 PRN PRN Reason: Pain, severe (8-10) Stop: 05/26/17 17:01 Last Admin: 05/23/17 14:30 Dose: 1 tab Pantoprazole Sodium (Protonix Inj) 40 mg IVP DAILY [facility] Last Admin: 05/23/17 08:59 Dose: 40 mg Quetiapine Fumarate (Seroquel) 25 mg PO QPM [facility] Last Admin: 05/22/17 17:13 Dose: 25 mg Fluticasone/Salmeterol (Advair Diskus 500/50) 1 puff IH Q12 [facility] Last Admin: 05/23/17 08:58 Dose: 1 puff Topiramate (Topamax) 50 mg PO DAILY [facility] Last Admin: 05/23/17 09:07 Dose: 50 mg Trazodone HCl (Desyrel) 100 mg PO HS [facility] Last Admin: 05/22/17 21:15 Dose: 100 mg Zolpidem Tartrate (Ambien) 5 mg PO HS PRN PRN Reason: Sleep Last Admin: 05/21/17 22:04 Dose: 5 mg - Labs Labs: 05/22/17 05:45 05/22/17 05:45 - Constitutional Appears: Chronically Ill - Head Exam Head Exam: NORMAL INSPECTION, NORMOCEPHALIC - Eye Exam Eye Exam: EOMI, Normal appearance Pupil Exam: NORMAL ACCOMODATION - ENT Exam ENT Exam: Mucous Membranes Moist, Normal External Ear Exam - Neck Exam Neck Exam: Full ROM. absent: Meningismus - Respiratory Exam Respiratory Exam: Rhonchi, Wheezes. absent: Respiratory Distress - Cardiovascular Exam Cardiovascular Exam: REGULAR RHYTHM, +S1, +S2 - GI/Abdominal Exam GI & Abdominal Exam: Soft, Normal Bowel Sounds. absent: Tenderness - Extremities Exam Extremities Exam: Full ROM, Normal Capillary Refill. absent: Calf Tenderness, Pedal Edema - Back Exam Back Exam: Full ROM. absent: CVA tenderness (L), CVA tenderness (R) - Neurological Exam Neurological Exam: Alert, Awake, CN II-XII Intact, Oriented x3 Neuro motor strength exam: Left Upper Extremity: 5, Right Upper Extremity: 5, Left Lower Extremity: 5, Right Lower Extremity: 5 - Psychiatric Exam Psychiatric exam: Normal Affect, Normal Mood - Skin Skin Exam: Dry, Normal Color, Warm Assessment and Plan - Assessment and Plan (Free Text) Assessment: 56F smoker, PMHx of COPD, Asthma, Hx AFib, knee pain, anxiety, depression, DM brought to ER for evaluation of SOB, despite using pulmonary home medications. Pt was also given Depomedrol in Dr. Johnston's office but did not have relief. Sputum Cx + Enterobacter Cloacae SSP Cloac. Sensitive to: Ceftriaxone, Aztreonam , Zosyn, Bactrim, Carbapenems, Cefepime, Cipro (ALLERGIC), Gentamycin, Moxifloxacin. Resistant to Cefazolin. 05/21/17 Continues to be wheezing and rhonchi. Increased freqencies of duonebs to q3 Initiated Ceftriaxone today : 05/21/17 afebrile, CBC pending TRANSFER BACK TO [facility] 05/22/17 wheezing improving but not resolved. duonebs, around the clock day 2 ceftriaxone afebrile WBC mild elevation 2/2 steroids 05/23 still wheezing but better decrease Solumedrol to 50 mg q 8Day3 IV Ceftriaxone 1. COPD exacerbation continue bronchodilators continue Solumedrol- decrease to 50q 8 Sputum Cx : Enterobacter Cloacae INITIATED CEFTRIAXONE day 3 cont Azithro cont Luis Salmeron Duoneb 2. DM VS. hyperglycemia 2/2 steroid use Accuchecks Insulin Human Regular [HumuLIN R] See Protocol SC ACHS 3. AFIB , chronic rate controlled NSR no medications 4. Episode of dysphagia evaluated by Dr. Rosas tolerating PO diet speech and swallow eval recommended 5. Insomnia Zolpidem [Ambien] 5 mg PO HS PRN 6. Knee pain sec to OA cont Gabapentin [Neurontin] 400 mg PO HS Toradol 30 mg q 6 prn Percocet prn 5. Depression/Anxiety traZODone [Desyrel] 100 mg PO HS ALPRAZolam [Xanax] 1 mg PO QID DULoxetine [Cymbalta] 60 mg PO DAILY QUEtiapine [SEROquel] 25 mg PO QPM Topiramate [Topamax] 50 mg PO DAILY 6. TOBACCO ABUSE Nicotine 21 mg/24 hr [Nicoderm CQ] 1 patch TD DAILY 7. Thrush? Nystatin [Nystatin Oral Susp] 5 ml PO QID 8. DVT proph Enoxaparin [Lovenox] 40 mg SC DAILY
[2017-05-24 00:33] VITALS: O2SAT 99
[2017-05-24] MEDS: Albuterol-Ipratrop 3 mg / 0.5 (3 ml) UD INH SCH ×5 (01:04→13:19)
[2017-05-24] MEDS: Oxycodone/Acetaminophen 5/325 mg Tab PO PRN ×2 (06:39→14:04)
[2017-05-24] MEDS: Insulin Regular 100 units/ml SC SCH ×2 (06:40→13:24)
[2017-05-24 08:47] VITALS: BP 108/65; PULSE 72; TEMP 97.7
[2017-05-24] MEDS: Enoxaparin 40 mg Syringe SC SCH (09:24)
[2017-05-24] MEDS: Nystatin 100,000 Units/ml Oral Susp 5 ml UD PO SCH ×2 (09:24→14:02)
[2017-05-24] MEDS: Fluticasone-Salmeterol 500-50mcg Diskus IH SCH (09:27)
[2017-05-24] MEDS: cefTRIAXone IV 1 gm in Dextros 50 ML IVPB SCH (09:44)
--- NOTE | 2017-05-24 11:19 | CP.PCM.DIS ---
Provider - Provider Date of Admission: 05/15/17 18:19 Attending physician: Maya Gallagher DO Time Spent in preparation of Discharge (in minutes): 30 Diagnosis - Discharge Diagnosis (1) Asthma with COPD with exacerbation Status: Acute Priority: High Hospital Course - Lab Results Lab Results: Micro Results 05/19/17 14:15 Sputum Gram Stain - Final 05/19/17 14:15 Sputum Sputum Culture - Final Enterobacter Cloacae Ssp Cloac 05/18/17 13:24 Sputum Gram Stain - Final 05/18/17 13:24 Sputum Sputum Culture - Final 05/15/17 17:17 Throat Group A Strep Throat Culture - Final NO BETA STREP GROUP A ISOLATED. Most Recent Lab Values WBC 11.1 K/uL (4.8-10.8) H 05/22/17 05:45 RBC 4.68 Mil/uL (3.80-5.20) 05/22/17 05:45 Hgb 12.3 g/dL (12.0-16.0) 05/22/17 05:45 Hct 39.6 % (34.0-47.0) 05/22/17 05:45 MCV 84.6 fl (81.0-99.0) 05/22/17 05:45 MCH 26.3 pg (27.0-31.0) L 05/22/17 05:45 MCHC 31.1 g/dL (33.0-37.0) L 05/22/17 05:45 RDW 13.7 % (11.5-14.5) 05/22/17 05:45 Plt Count 192 K/uL (130-400) 05/22/17 05:45 MPV 9.0 fl (7.2-11.7) 05/21/17 11:45 Neut % (Auto) 86.1 % (50.0-75.0) H 05/21/17 11:45 Lymph % (Auto) 8.2 % (20.0-40.0) L 05/21/17 11:45 [place] % (Auto) 5.7 % (0.0-10.0) 05/21/17 11:45 Eos % (Auto) 0.0 % (0.0-4.0) 05/21/17 11:45 Baso % (Auto) 0.0 % (0.0-2.0) 05/21/17 11:45 Neut # 8.7 K/uL (1.8-7.0) H 05/21/17 11:45 Lymph # 0.8 K/uL (1.0-4.3) L 05/21/17 11:45 [place] # 0.6 K/uL (0.0-0.8) 05/21/17 11:45 Eos # 0.0 K/uL (0.0-0.7) 05/21/17 11:45 Baso # 0.0 K/uL (0.0-0.2) 05/21/17 11:45 Neutrophils % (Manual) 88 % (42-75) H 05/21/17 11:45 Lymphocytes % (Manual) 6 % (20-50) L 05/21/17 11:45 Monocytes % (Manual) 6 % (0-10) 05/21/17 11:45 Platelet Estimate Normal (NORMAL) 05/21/17 11:45 RBC Morphology Normal (NORMAL) 05/21/17 11:45 pCO2 41 mm/Hg (35-45) 05/19/17 12:31 pO2 59 mm/Hg (80-100) L 05/19/17 12:31 HCO3 26.3 mmol/L (21-28) 05/19/17 12:31 ABG pH 7.42 (7.35-7.45) 05/19/17 12:31 ABG Total CO2 27.9 mmol/L (22-28) 05/19/17 12:31 ABG O2 Saturation 96.0 % (95-98) 05/19/17 12:31 ABG O2 Content 15.9 ML/dL (15-23) 05/19/17 12:31 ABG Base Excess 1.9 mmol/L (-2.0-3.0) 05/19/17 12:31 ABG Hemoglobin 12.2 g/dL (11.7-17.4) 05/19/17 12:31 ABG Carboxyhemoglobin 2.0 % (0.5-1.5) H 05/19/17 12:31 POC ABG HHb (Measured) 3.9 % (0.0-5.0) 05/19/17 12:31 ABG Methemoglobin 1.5 % (0.0-3.0) 05/19/17 12:31 ABG O2 Capacity 16.6 mL/dL (16-24) 05/19/17 12:31 [place] Test Yes 05/19/17 12:31 A-a O2 Difference 118.0 mm/Hg 05/19/17 12:31 Hgb O2 Saturation 92.6 % (95.0-98.0) L 05/19/17 12:31 Liter Flow 3 05/19/17 12:31 Vent Mode Nc 05/19/17 12:31 FiO2 32.0 % 05/19/17 12:31 Sodium 139 mmol/l (132-148) 05/22/17 05:45 Potassium 5.0 MMOL/L (3.6-5.0) 05/22/17 05:45 Chloride 107 mmol/L (98-107) 05/22/17 05:45 Carbon Dioxide 28 mmol/L (22-30) 05/22/17 05:45 Anion Gap 9 (10-20) L 05/22/17 05:45 BUN 33 mg/dl (7-17) H 05/22/17 05:45 Creatinine 0.6 mg/dl (0.7-1.2) L 05/22/17 05:45 Est GFR ( Amer) > 60 05/22/17 05:45 Est GFR (Non-Af Amer) > 60 05/22/17 05:45 POC Glucose (mg/dL) 234 mg/dL (65-110) H 05/24/17 06:34 Random Glucose 172 mg/dL (65-105) H 05/22/17 05:45 Hemoglobin A1c 5.7 % (4.2-6.5) 05/16/17 05:20 Calcium 7.8 mg/dL (8.4-10.2) L 05/22/17 05:45 Total Bilirubin 0.2 mg/dl (0.2-1.3) 05/16/17 05:20 AST 19 U/L (14-36) 05/16/17 05:20 ALT 36 U/L (9-52) 05/16/17 05:20 Alkaline Phosphatase 145 U/L (38-126) H 05/16/17 05:20 Troponin I < 0.0120 ng/mL (0.00-0.120) 05/15/17 18:18 Total Protein 6.9 G/DL (6.3-8.2) 05/16/17 05:20 Albumin 3.8 g/dL (3.5-5.0) 05/16/17 05:20 Globulin 3.1 gm/dL (2.2-3.9) 05/16/17 05:20 Albumin/Globulin Ratio 1.2 (1.0-2.1) 05/16/17 05:20 Triglycerides 101 mg/DL (0-149) D 05/16/17 05:20 Cholesterol 180 mg/dL (0-199) 05/16/17 05:20 LDL Cholesterol Direct 93 mg/dL (0-129) 05/16/17 05:20 HDL Cholesterol 63 MG/DL (30-70) 05/16/17 05:20 Thyroxine (T4) 8.24 ug/dl (5.5-11.0) 05/16/17 05:20 TSH 3rd Generation 0.32 mIU/ML (0.46-4.68) L 05/16/17 05:20 Urine Color Straw (YELLOW) 05/16/17 02:24 Urine Clarity Clear (Clear) 05/16/17 02:24 Urine pH 6.0 (5.0-8.0) 05/16/17 02:24 Ur Specific [place] 1.013 (1.003-1.030) 05/16/17 02:24 Urine Protein Negative mg/dL (NEGATIVE) 05/16/17 02:24 Urine Glucose (UA) >=500 mg/dL (Normal) 05/16/17 02:24 Urine Ketones Negative mg/dL (NEGATIVE) 05/16/17 02:24 Urine Blood Small (NEGATIVE) 05/16/17 02:24 Urine Nitrate Negative (NEGATIVE) 05/16/17 02:24 Urine Bilirubin Negative (NEGATIVE) 05/16/17 02:24 Urine Urobilinogen 0.2-1.0 mg/dL (0.2-1.0) 05/16/17 02:24 Ur Leukocyte Esterase Neg Angélica/uL (Negative) 05/16/17 02:24 Urine RBC (Auto) 1 /hpf (0-3) 05/16/17 02:24 Urine Microscopic WBC < 1 /hpf (0-5) 05/16/17 02:24 Ur Squamous Epith Cells < 1 /hpf (0-5) 05/16/17 02:24 Urine Creatinine 55 mg/dL (20-320) 05/16/17 18:11 Urine Microalbumin <0.2 mg/dL 05/16/17 18:11 Microalb/Creat Ratio Note (<30) 05/16/17 18:11 Grp A Beta Strep Ag Negative (NEGATIVE) 05/15/17 17:17 - Hospital Course Hospital Course: 56F smoker, PMHx of COPD, Asthma, Hx AFib, knee pain, anxiety, depression, DM brought to ER for evaluation of SOB, despite using pulmonary home medications. Pt was also given Depomedrol in Dr. Johnston's office but did not have relief. Sputum Cx + Enterobacter Cloacae SSP Cloac. Sensitive to: Ceftriaxone, Aztreonam , Zosyn, Bactrim, Carbapenems, Cefepime, Cipro (ALLERGIC), Gentamycin, Moxifloxacin. Resistant to Cefazolin. Patient was treated with steroids, bronchodilators, CEFTRIAXONE for positive sputum cultures for 4 days. To change to PO abx for 7 days on discharge. Patient improved. Stable for discharge home with follow up with patient primary care physician of patient choice. To return to ER if condition worsens or returns. Discharge Exam - Head Exam Head Exam: NORMAL INSPECTION, NORMOCEPHALIC Additional comments: Physical exam: Constitutional- cooperative, awake, alert. patient is preoccupied with new iphone X, no acute distress, appears very comfortable. speaking and breathing with ease, without any apparent difficulty. Head- NCAT, PERRL Eye- PERRL, normal accommodation ENT- normal exam, MMM. Neck- normal inspection, supple, no JVD Respiratory- CTAB, no wheezes rales rhonchi. patient speaking comfortably full sentences. no respiratory distress or discomfort. Cardiovascular- RRR, +S1, +S2 no MRG GI/Abdominal- normal bowel sounds, soft, no mass, no hsm Skin- warm, dry Extremities Exam- normal capillary refill, normal inspection Neurological Exam- alert, stable gait Psych- normal mood, normal affect Discharge Plan - Discharge Medications Prescriptions: Azithromycin [Zithromax] 500 mg PO DAILY #7 tab Cefdinir [Omnicef] 300 mg PO Q12 #14 cap Methylprednisolone [Medrol Dose Pack (21 tabs)] 4 mg PO ASDIR #21 mg - Follow Up Plan Condition: STABLE Disposition: HOME/ ROUTINE Instructions: Asthma (DC) Additional Instructions: PATIENT TO FOLLOW UP WITH PCP OF PATIENT CHOICE. IF NONE, THEN FOLLOW UP WITH [facility]. RETURN TO ER IF CONDITION WORSENS OR RETURNS.
== END 2017-05-24 14:34 | disposition home or self-care (01) | DRG 88 ==
LOC: H.ER 16:30 → H.ERHOLD 18:19 → H.MEDSURG1 05-16 00:09 → H.TEL 05-19 13:51 → H.MEDSURG1 05-21 18:47
PROVIDERS: ADMIT Student in an Organized Health Care Education/Training Program; ATTEND Student in an Organized Health Care Education/Training Program
DX: J44.1 Chronic obstructive pulmonary disease with (acute) exacerbation (principal); J45.51 Severe persistent asthma with (acute) exacerbation; R13.10 Dysphagia, unspecified; I48.2 Chronic atrial fibrillation; B37.9 Candidiasis, unspecified; K21.9 Gastro-esophageal reflux disease without esophagitis; E11.9 Type 2 diabetes mellitus without complications; F17.210 Nicotine dependence, cigarettes, uncomplicated; F32.9 Major depressive disorder, single episode, unspecified; F41.9 Anxiety disorder, unspecified; G47.00 Insomnia, unspecified; I10 Essential (primary) hypertension; M06.9 Rheumatoid arthritis, unspecified; Z76.5 Malingerer [conscious simulation]; R20.0 Anesthesia of skin; G89.29 Other chronic pain; Z88.3 Allergy status to other anti-infective agents; Z88.0 Allergy status to penicillin; M17.9 Osteoarthritis of knee, unspecified; B96.89 Other specified bacterial agents as the cause of diseases classified elsewhere; K29.50 Unspecified chronic gastritis without bleeding

== ENCOUNTER 2017-05-24 18:21 | Observation (INO) | payer MEDICAID ==
[2017-05-24 18:21] VITALS: BMI 40.0
[2017-05-24] MEDS ORDERED: Albuterol-Ipratrop 3 mg / 0.5 (3 ml) UD ONE ×2 (18:37)
[2017-05-24] MEDS ORDERED: Albuterol-Ipratrop 3 mg / 0.5 (3 ml) UD INH STA (18:39)
--- NOTE | 2017-05-24 18:56 | ED PDOC ---
HPI: SOB/CHF/COPD Time Seen by Provider: 05/24/17 18:33 Chief Complaint (Nursing): Shortness Of Breath Chief Complaint (Provider): Shortness of breath History Per: Patient History/Exam Limitations: no limitations Onset/Duration Of Symptoms: Days (1) Additional Complaint(s): Patient is a 56 y/o female with a past medical history of COPD and asthma sent by her PMD to the emergency department for wheezing. Reports that she was discharged from the hospital today after being admitted for asthma and COPD exacerbation. Also complains of chronic left knee pain and is requesting pain medication. Denies any other complaints. PCP: Dr. Fredis Johnston Past Medical History Reviewed: Historical Data, Nursing Documentation, Vital Signs Vital Signs: Last Vital Signs Temp 98.6 F 05/25/17 12:21 Pulse 92 H 05/25/17 12:21 Resp 18 05/25/17 12:21 BP 126/74 05/25/17 12:21 Pulse Ox 93 L 05/26/17 18:15 - Medical History PMH: Anemia, Anxiety, Arthritis (R-L knee.), Asthma, Atrial Fibrillation, Bronchitis, Cardia Arrhythmia, COPD, Depression, Diverticulitis, Gastritis ( ulcer), GERD, HTN, Pneumonia, Rheumatoid Arthritis Denies: HIV, Chronic Kidney Disease - Surgical History Surgical History: Cholecystectomy, (x3) - Family History Family History: States: Unknown Family Hx - Immunization History Hx Tetanus Toxoid Vaccination: No Hx Influenza Vaccination: No Hx Pneumococcal Vaccination: No - Home Medications Home Medications: Ambulatory Orders Medication Instructions Recorded Albuterol 0.083% [Albuterol 0.083% 3 ml IH Q8H PRN 05/15/17 Inhal Esther (2.5 mg/3 ml) UD] Albuterol HFA [Ventolin HFA 90 2 puff IH Q4H PRN 05/15/17 mcg/actuation (8 g)] Azelastine HCl [Astepro] 1 spray DENISE BID PRN 05/15/17 Budesonide/Formoterol Fumarate 2 puff IH Q12H 05/15/17 [Symbicort 160-4.5 Mcg Inhaler] DULoxetine [Cymbalta] 60 mg PO DAILY 05/15/17 Gabapentin [Neurontin] 300 mg PO HS 05/15/17 Ibuprofen [Motrin Tab] 800 mg PO Q6H PRN 05/15/17 Ipratropium 0.02% [Atrovent] 2.5 ml IH Q8H PRN 05/15/17 Montelukast [Singulair] 10 mg PO HS 05/15/17 Omeprazole 20 mg PO BID 05/15/17 Ondansetron HCl [Zofran] 4 mg PO DAILY PRN 05/15/17 QUEtiapine [Seroquel] 25 mg PO QPM 05/15/17 Topiramate [Topamax] 50 mg PO DAILY 05/15/17 Triazolam [Halcion] 0.5 mg PO HS 05/15/17 Zolpidem [Ambien] 10 mg PO HS 05/15/17 hydrOXYzine HCl [Atarax] 25 mg PO Q8H 05/15/17 traZODone [Desyrel] 100 mg PO HS 05/15/17 Methylprednisolone [Medrol Dose 4 mg PO ASDIR #21 mg 05/22/17 Pack (21 tabs)] Azithromycin [Zithromax] 500 mg PO DAILY #7 tab 05/24/17 Cefdinir [Omnicef] 300 mg PO Q12 #14 cap 05/24/17 Albuterol/Ipratropium [Duoneb 3 3 ml INH RQID #90 neb 05/25/17 mg/0.5 mg (3 ml) UD] Prednisone 40 mg PO BID #7 tablet 05/25/17 - Allergies Allergies/Adverse Reactions: Allergies Allergy/AdvReac Type Severity Reaction Status Date / Time ciprofloxacin [From Cipro] Allergy RASH Verified 05/15/17 16:36 ciprofloxacin HCl Allergy RASH Verified 05/15/17 16:36 [From Cipro] Penicillins Allergy RASH Verified 05/15/17 16:36 Review of Systems ROS Statement: Except As Marked, All Systems Reviewed And Found Negative Respiratory: Positive for: Wheezing Musculoskeletal: Positive for: Other (chronic left knee pain) Physical Exam - Reviewed Nursing Documentation Reviewed: Yes Vital Signs Reviewed: Yes - Physical Exam Appears: Positive for: No Acute Distress Head Exam: Positive for: ATRAUMATIC, NORMAL INSPECTION, NORMOCEPHALIC Skin: Positive for: Normal Color, Warm, Dry Eye Exam: Positive for: Normal appearance Neck: Positive for: Normal Cardiovascular/Chest: Positive for: Regular Rate, Rhythm. Negative for: Murmur Respiratory: Positive for: Rhonchi (bilateral), Wheezing (bilateral), Respiratory Distress (moderate) Extremity: Positive for: Normal ROM Neurologic/Psych: Positive for: Alert, Oriented (x3) - Laboratory Results Result Diagrams: 05/25/17 05:00 05/25/17 05:00 - ECG O2 Sat by Pulse Oximetry: 93 (RA) Pulse Ox Interpretation: Abnormal - Critical Care Total Time (In Min): 45 Medical Decision Making Medical Decision Making: Time: 18:39 Initial impression: COPD and asthma exacerbation. Chronic pain Initial plan: EKG Labs: CMP and CBC Blood culture Chest X-ray Albuterol 3 mL SOLU-medrol 125 mg IVP Morphine 2 mg IV Peak flow assessment pre and post treatment Reevaluation Scribe Attestation: Documented by Quyen Franco, acting as a scribe for Raquel Horn MD. Provider Scribe Attestation: All medical record entries made by the Scribe were at my direction and personally dictated by me. I have reviewed the chart and agree that the record accurately reflects my personal performance of the history, physical exam, medical decision making, and the department course for this patient. I have also personally directed, reviewed, and agree with the discharge instructions and disposition. Disposition - Clinical Impression Clinical Impression: COPD exacerbation - Patient ED Disposition Is Patient to be Admitted: Yes - Disposition Disposition Time: 21:16 Condition: STABLE - Pt Status Changed To: Hospital Disposition Of: Observation - POA Present On Arrival: None
[2017-05-24 19:14] LABS: BASO % 0.2 % (0.0-2.0); HEMATOCRIT 39.6 % (34.0-47.0); LYMPH # 1.1 K/uL (1.0-4.3); LYMPH % 7.4 % (20.0-40.0); MEAN CELL VOLUME 83.4 fl (81.0-99.0); MEAN CORPUSCULAR HEMOGLOBIN 26.6 pg (27.0-31.0); MEAN CORPUSCULAR HGB CONC 31.9 g/dL (33.0-37.0); MEAN PLATELET VOLUME 8.5 fl (7.2-11.7); MONO # 0.7 K/uL (0.0-0.8); MONO % 4.8 % (0.0-10.0); NEUT # 12.7 K/uL (1.8-7.0); NEUT % 87.6 % (50.0-75.0); PLATELET COUNT 221 K/uL (130-400); RED CELL DISTRIBUTION WIDTH 13.6 % (11.5-14.5); WHITE BLOOD COUNT 14.5 K/uL (4.8-10.8)
[2017-05-24] MEDS ORDERED: Morphine 4 MG/ML VIAL ONE (19:18)
[2017-05-24 19:51] LABS: ALB/GLOB RATIO 1.2 (1.0-2.1); ALKALINE PHOSPHATASE 96 U/L (38-126); ALT/SGPT 57 U/L (9-52); AST/SGOT 36 U/L (14-36); BILIRUBIN,TOTAL 0.6 mg/dl (0.2-1.3); BLOOD UREA NITROGEN 24 mg/dl (7-17); CARBON DIOXIDE 25 mmol/L (22-30); CHLORIDE 106 mmol/L (98-107); GFR AFRICAN-AMERICAN > 60; GLUCOSE,RANDOM 122 mg/dL (65-105); POTASSIUM 4.5 MMOL/L (3.6-5.0); SODIUM 133 mmol/l (132-148); TOTAL PROTEIN 6.1 G/DL (6.3-8.2)
[2017-05-24 21:09] LABS: NEUTROPHIL 87 % (42-75); TOTAL CELLS COUNTED 100
[2017-05-24] MEDS ORDERED: Patient's Own Med (Oxycodone Hcl/Acetaminophen [Endocet 10-325 Mg Tablet] 1 TAB) PO PRN (21:31)
[2017-05-24] MEDS ORDERED: Patient's Own Med (Azelastine Hcl [Astepro] 1 SPRAY) NAS PRN (21:31)
[2017-05-24] MEDS ORDERED: Albuterol-Ipratrop 3 mg / 0.5 (3 ml) UD INH PRN (21:35)
--- NOTE | 2017-05-24 21:39 | CP.PCM.HP ---
History of Present Illness - History of Present Illness History of Present Illness: CC: recently discharged, readmitted for persistent/worsening wheezing HPI: This is a 56 y/o female with MHx signfiicant Asthma/COPD and A fib who was admitted to the hospital 05/16 for Asthma/COPD exacerbation. She was treated and discharged this morning. This afternoon she had f/u visit with Dr. Johnston, where she was noted to have worsening wheezing and SOB, so she was sent back to the ER> ROS: 14 systems reviewed, negative other than HPI MHx: Asthma/COPD, A fib, anxiety SHx: multiple C-sec, L knee, GB Allergy: cipro, pcn Medications: As per discharge list today/med rec Family Hx: reviewed, no findings relevant to current condition Social Hx: Lives by herself, 1/2-1 PPD for many years, no significant EtOH Surrogate: Has a daughter in [place], info pending Present on Admission - Present on Admission Any Indicators Present on Admission: No Past Patient History - Tetanus Immunizations Tetanus Immunization: Unknown - Past Medical History & Family History Past Medical History?: Yes - Past Social History Smoking Status: Light Smoker < 10 Cigarettes Daily - CARDIAC Hx Atrial Fibrillation: Yes Hx Cardia Arrhythmia: Yes Hx Hypertension: Yes - PULMONARY Hx Asthma: Yes Hx Bronchitis: Yes Hx Chronic Obstructive Pulmonary Disease (COPD): Yes Hx Pneumonia: Yes - NEUROLOGICAL Hx Neurological Disorder: No - HEENT Hx HEENT Problems: Yes Other/Comment: Allergic Rhinitis - RENAL Hx Chronic Kidney Disease: No - ENDOCRINE/METABOLIC Hx Diabetes Mellitus Type 2: Yes - HEMATOLOGICAL/ONCOLOGICAL Hx Anemia: Yes Hx Human Immunodeficiency Virus (HIV): No - INTEGUMENTARY Hx Dermatological Problems: No - MUSCULOSKELETAL/RHEUMATOLOGICAL Hx Arthritis: Yes (R-L knee.) Hx Rheumatoid Arthritis: Yes - GASTROINTESTINAL Hx Diverticulitis: Yes Hx Gastritis: Yes (ulcer) - GENITOURINARY/GYNECOLOGICAL Hx Genitourinary Disorders: No - PSYCHIATRIC Hx Anxiety: Yes Hx Depression: Yes Hx Substance Use: No - SURGICAL HISTORY Hx Cholecystectomy: Yes - ANESTHESIA Hx Anesthesia: Yes Hx Anesthesia Reactions: No Hx Malignant Hyperthermia: No Meds Allergies/Adverse Reactions: Allergies Allergy/AdvReac Type Severity Reaction Status Date / Time ciprofloxacin [From Cipro] Allergy RASH Verified 05/15/17 16:36 ciprofloxacin HCl Allergy RASH Verified 05/15/17 16:36 [From Cipro] Penicillins Allergy RASH Verified 05/15/17 16:36 Physical Exam - Constitutional Appears: No Acute Distress - Head Exam Head Exam: ATRAUMATIC, NORMOCEPHALIC - Eye Exam Eye Exam: EOMI, PERRL - ENT Exam ENT Exam: Mucous Membranes Moist - Neck Exam Neck exam: Positive for: Full Rom - Respiratory Exam Respiratory Exam: Rhonchi, Wheezes - Cardiovascular Exam Cardiovascular Exam: Tachycardia, +S1, +S2 - GI/Abdominal Exam GI & Abdominal Exam: Normal Bowel Sounds, Soft - Extremities Exam Extremities exam: Positive for: full ROM, pedal edema - Neurological Exam Neurological exam: Alert, CN II-XII Intact, Oriented x3 - Psychiatric Exam Psychiatric exam: Normal Affect, Normal Mood - Skin Skin Exam: Dry, Warm Results - Vital Signs Recent Vital Signs: Last Vital Signs Temp 98.1 F 05/24/17 18:29 Pulse 95 H 05/24/17 18:29 Resp 18 05/24/17 18:29 BP 164/88 H 05/24/17 18:29 Pulse Ox 93 L 05/24/17 19:02 - Labs Result Diagrams: 05/24/17 20:00 05/24/17 18:00 Labs: Laboratory Results - last 24 hr 05/24/17 05/24/17 18:00 20:00 WBC 14.5 H RBC 4.75 Hgb 12.7 Hct 39.6 MCV 83.4 MCH 26.6 L MCHC 31.9 L RDW 13.6 Plt Count 221 MPV 8.5 Neut % (Auto) 87.6 H Lymph % (Auto) 7.4 L [place] % (Auto) 4.8 Eos % (Auto) 0.0 Baso % (Auto) 0.2 Neut # 12.7 H Lymph # 1.1 [place] # 0.7 Eos # 0.0 Baso # 0.0 Neutrophils % (Manual) 87 H Band Neutrophils % 2 Lymphocytes % (Manual) 7 L Monocytes % (Manual) 4 Platelet Estimate Normal Hypochromasia (manual) Slight Anisocytosis (manual) Slight Microcytosis (manual) Slight Sodium 133 Potassium 4.5 Chloride 106 Carbon Dioxide 25 Anion Gap 7 L BUN 24 H Creatinine 0.6 L Est GFR ( Amer) > 60 Est GFR (Non-Af Amer) > 60 Random Glucose 122 H Calcium 8.0 L Total Bilirubin 0.6 AST 36 D ALT 57 H D Alkaline Phosphatase 96 Total Protein 6.1 L Albumin 3.3 L Globulin 2.7 Albumin/Globulin Ratio 1.2 - EKG Data EKG Interpreted by: Myself EKG shows normal: Sinus rhythm Rate: Normal - Imaging and Cardiology Chest x-ray Status: Image reviewed by me (poor inspiratory effort, no obvious consolidation) Assessment & Plan (1) Asthma with COPD with exacerbation Assessment and Plan: A/P: 56 y/o female with asthma/COPD recently d/c'ed this AM, who comes in with worsening respiratory symptoms. 1) Asthma/COPD, hypoxic respiratory failure -Continue standing and PRN duonebs -Cont solumedrol 60 mg IV q8h -Cont PO antibiotics as started at discharge 2) Anxiety/depression -- continue home medications Status: Acute Priority: High (2) Anxiety Status: Chronic Priority: Medium (3) Depression Status: Chronic Priority: Medium (4) DVT prophylaxis Status: Acute
[2017-05-24] MEDS ORDERED: Patient's Own Med (Budesonide/Formoterol Fumarate [Symbicort 160-4.5 Mcg Inhaler] 2 PUFF) IH SCH (21:45)
[2017-05-24] MEDS: Oxycodone/Acetaminophen 5/325 mg Tab PO PRN (22:43)
[2017-05-25] MEDS ORDERED: methylPREDNISolone 60 MG in Sodium Chloride 0.9% 50 ML IVPB SCH (01:00)
[2017-05-25] MEDS: Oxycodone/Acetaminophen 5/325 mg Tab PO PRN ×3 (02:28→11:30)
[2017-05-25 06:20] LABS: BASO % 0.1 % (0.0-2.0); LYMPH # 0.7 K/uL (1.0-4.3); LYMPH % 5.1 % (20.0-40.0); MEAN CELL VOLUME 83.6 fl (81.0-99.0); MEAN CORPUSCULAR HEMOGLOBIN 26.7 pg (27.0-31.0); MEAN CORPUSCULAR HGB CONC 31.9 g/dL (33.0-37.0); MEAN PLATELET VOLUME 9.1 fl (7.2-11.7); MONO # 0.2 K/uL (0.0-0.8); MONO % 1.7 % (0.0-10.0); NEUT % 93.1 % (50.0-75.0); PLATELET COUNT 188 K/uL (130-400); RED CELL DISTRIBUTION WIDTH 13.6 % (11.5-14.5); WHITE BLOOD COUNT 12.9 K/uL (4.8-10.8)
[2017-05-25 06:35] LABS: BLOOD UREA NITROGEN 23 mg/dl (7-17); CALCIUM 7.9 mg/dL (8.4-10.2); CARBON DIOXIDE 25 mmol/L (22-30); CHLORIDE 106 mmol/L (98-107); GFR AFRICAN-AMERICAN > 60; GLUCOSE,RANDOM 176 mg/dL (65-105); POTASSIUM 4.6 MMOL/L (3.6-5.0); SODIUM 135 mmol/l (132-148)
[2017-05-25 07:30] LABS: NEUTROPHIL 88 % (42-75); TOTAL CELLS COUNTED 100
[2017-05-25] MEDS: Albuterol-Ipratrop 3 mg / 0.5 (3 ml) UD INH SCH ×3 (07:39→15:32)
--- NOTE | 2017-05-25 08:16 | CP.PCM.DIS ---
Provider - Provider Date of Admission: 05/24/17 21:16 Attending physician: Cheri Copeland MD Time Spent in preparation of Discharge (in minutes): 30 Diagnosis - Discharge Diagnosis (1) Pain Status: Acute (2) Asthma with COPD with exacerbation Status: Acute Priority: High Hospital Course - Lab Results Lab Results: Most Recent Lab Values WBC 12.9 K/uL (4.8-10.8) H 05/25/17 05:00 RBC 4.78 Mil/uL (3.80-5.20) 05/25/17 05:00 Hgb 12.7 g/dL (12.0-16.0) 05/25/17 05:00 Hct 40.0 % (34.0-47.0) 05/25/17 05:00 MCV 83.6 fl (81.0-99.0) 05/25/17 05:00 MCH 26.7 pg (27.0-31.0) L 05/25/17 05:00 MCHC 31.9 g/dL (33.0-37.0) L 05/25/17 05:00 RDW 13.6 % (11.5-14.5) 05/25/17 05:00 Plt Count 188 K/uL (130-400) 05/25/17 05:00 MPV 9.1 fl (7.2-11.7) 05/25/17 05:00 Neut % (Auto) 93.1 % (50.0-75.0) H 05/25/17 05:00 Lymph % (Auto) 5.1 % (20.0-40.0) L 05/25/17 05:00 [place] % (Auto) 1.7 % (0.0-10.0) 05/25/17 05:00 Eos % (Auto) 0.0 % (0.0-4.0) 05/25/17 05:00 Baso % (Auto) 0.1 % (0.0-2.0) 05/25/17 05:00 Neut # 12.0 K/uL (1.8-7.0) H 05/25/17 05:00 Lymph # 0.7 K/uL (1.0-4.3) L 05/25/17 05:00 [place] # 0.2 K/uL (0.0-0.8) 05/25/17 05:00 Eos # 0.0 K/uL (0.0-0.7) 05/25/17 05:00 Baso # 0.0 K/uL (0.0-0.2) 05/25/17 05:00 Neutrophils % (Manual) 88 % (42-75) H 05/25/17 05:00 Band Neutrophils % 2 % (0-2) 05/24/17 20:00 Lymphocytes % (Manual) 8 % (20-50) L 05/25/17 05:00 Monocytes % (Manual) 4 % (0-10) 05/25/17 05:00 Platelet Estimate Normal (NORMAL) 05/25/17 05:00 Hypochromasia (manual) Slight 05/24/17 20:00 Anisocytosis (manual) Slight 05/25/17 05:00 Microcytosis (manual) Slight 05/24/17 20:00 Sodium 135 mmol/l (132-148) 05/25/17 05:00 Potassium 4.6 MMOL/L (3.6-5.0) 05/25/17 05:00 Chloride 106 mmol/L (98-107) 05/25/17 05:00 Carbon Dioxide 25 mmol/L (22-30) 05/25/17 05:00 Anion Gap 9 (10-20) L 05/25/17 05:00 BUN 23 mg/dl (7-17) H 05/25/17 05:00 Creatinine 0.6 mg/dl (0.7-1.2) L 05/25/17 05:00 Est GFR ( Amer) > 60 05/25/17 05:00 Est GFR (Non-Af Amer) > 60 05/25/17 05:00 Random Glucose 176 mg/dL (65-105) H 05/25/17 05:00 Calcium 7.9 mg/dL (8.4-10.2) L 05/25/17 05:00 Total Bilirubin 0.6 mg/dl (0.2-1.3) 05/24/17 18:00 AST 36 U/L (14-36) D 05/24/17 18:00 ALT 57 U/L (9-52) H D 05/24/17 18:00 Alkaline Phosphatase 96 U/L (38-126) 05/24/17 18:00 Total Protein 6.1 G/DL (6.3-8.2) L 05/24/17 18:00 Albumin 3.3 g/dL (3.5-5.0) L 05/24/17 18:00 Globulin 2.7 gm/dL (2.2-3.9) 05/24/17 18:00 Albumin/Globulin Ratio 1.2 (1.0-2.1) 05/24/17 18:00 - Hospital Course Hospital Course: 56 y/o female with PMH Asthma/COPD and A fib who was admitted to the hospital 05/16 for Asthma/COPD exacerbation. She was treated and discharged YESTERDAY morning. This afternoon she had f/u visit with Dr. Johnston, where she was noted to have worsening wheezing and SOB, so she was sent back to the ER. Pt stated she had difficultly walking, however exhibits normal gait with baseline dyspnea. Patient is exhibiting pain medication seeking behavior and requesting high doses of narcotics despite mild DJD. Pt also produced tracheal wheezes, however has far improved breath sounds, at her baseline when instructed to breathe normally. Patient is at her baseline with mild wheezing, NO respiratory distress or increased work of breathing, no accessory muscle use, speaking with ease/without difficulty, ambulating around the room well, without any signs of dyspnea or increased wheezing. Patient is at her COPD baseline with some mild wheezing. Per prior conversations with the hospitalist team, patient's PCP is currently in process of asking patient to find another primary care provider and anesthesiology medical doctor at this time. We will also provide a referral for [facility]. She is stable to be discharged home with follow up as an outpatient with a primary care physician and a referral. Patient also to be discharged with same PO antibiotics as yesterday. Discharge Exam - Head Exam Head Exam: ATRAUMATIC, NORMOCEPHALIC - Eye Exam Eye Exam: EOMI, Normal appearance Pupil Exam: NORMAL ACCOMODATION - ENT Exam ENT Exam: Mucous Membranes Moist, Normal Oropharynx - Neck Exam Neck exam: Full Rom, Normal Inspection - Respiratory Exam Respiratory Exam: Wheezes (MILD , improved from yesterday), NORMAL BREATHING PATTERN. absent: Decreased Breath Sounds, Prolonged Expiratory Phase, Rales, Rhonchi, Respiratory Distress, Stridor - Cardiovascular Exam Cardiovascular Exam: RRR, +S1, +S2. absent: Systolic Murmur - GI/Abdominal Exam GI & Abdominal Exam: Normal Bowel Sounds, Soft. absent: Tenderness Additional comments: morbidly obese, can not examine for masses - Extremities Exam Extremities exam: normal capillary refill, pedal pulses present - Back Exam Back exam: absent: CVA tenderness (L), CVA tenderness (R) - Neurological Exam Neurological exam: Alert, Reflexes Normal - Psychiatric Exam Psychiatric exam: Normal Affect, Normal Mood - Skin Skin Exam: Dry, Warm Discharge Plan - Follow Up Plan Condition: STABLE Disposition: HOME/ ROUTINE Additional Instructions: FOLLOW UP WITH PCP OF PATIENT CHOICE. REFERRAL FOR [facility] PROVIDED. Referrals: [facility] [Provider Group]
[2017-05-25] MEDS ORDERED: Cefdinir 300 MG CAP PO SCH (09:00)
[2017-05-25] MEDS ORDERED: Pantoprazole 40 mg EC Tab PO SCH (09:00)
--- NOTE | 2017-05-25 10:37 | CARD ---
APPROVED REPORT EKG Measurement Heart [id number] <Conclusion> Normal sinus rhythm Normal ECG
--- NOTE | 2017-05-25 10:43 | RAD ---
HISTORY: SOB COMPARISON: None available. TECHNIQUE: Chest, one view. FINDINGS: Examination limited by habitus, patient obliquity, and hypoinflation. LUNGS: No focal consolidation. Please note that chest x-ray has limited sensitivity for the detection of pulmonary masses. PLEURA: No significant pleural effusion identified. No definite pneumothorax . CARDIOVASCULAR: Heart size appears within normal limits. Ectatic aorta. OSSEOUS STRUCTURES: No acute osseous abnormality identified. VISUALIZED UPPER ABDOMEN: Unremarkable. OTHER FINDINGS: None. IMPRESSION: No focal consolidation, significant pleural effusion, or definite pneumothorax identified.
[2017-05-25 12:22] VITALS: BP 126/74; PULSE 92; RESP 18; TEMP 98.6
[2017-05-26 18:15] VITALS: O2SAT 93
== END 2017-05-25 16:00 | disposition home or self-care (01) ==
LOC: H.ER 18:21 → H.ERHOLD 21:16 → H.TEL 23:05
PROVIDERS: ADMIT Internal Medicine; ATTEND Internal Medicine
DX: J45.901 Unspecified asthma with (acute) exacerbation (principal); J44.1 Chronic obstructive pulmonary disease with (acute) exacerbation; I48.91 Unspecified atrial fibrillation; G89.29 Other chronic pain; Z88.3 Allergy status to other anti-infective agents; Z88.0 Allergy status to penicillin; K29.70 Gastritis, unspecified, without bleeding; K21.9 Gastro-esophageal reflux disease without esophagitis; I10 Essential (primary) hypertension; M06.9 Rheumatoid arthritis, unspecified; F32.9 Major depressive disorder, single episode, unspecified; M17.0 Bilateral primary osteoarthritis of knee; F41.9 Anxiety disorder, unspecified; Z76.5 Malingerer [conscious simulation]
CPT/HCPCS: 36415; 71010; 80048; 80053; 85025; 87040; 93005; 94150; 94640; 96374; 99285; G0378; J1644; J2270; J2930

== ENCOUNTER 2018-04-27 12:46 | Inpatient (IN) | payer MEDICAID ==
[2018-04-27 12:46] VITALS: BMI 44.5
[2018-04-27] MEDS ORDERED: Etomidate 20 mg/10ml Inj IV ONE ×2 (12:53→13:28)
[2018-04-27] MEDS ORDERED: Succinylcholine 200 mg/10 ml Inj IV ONE ×2 (12:54→13:29)
[2018-04-27] MEDS ORDERED: Albuterol-Ipratrop 3 mg / 0.5 (3 ml) UD INH STA ×2 (12:59→13:31)
[2018-04-27 13:03] LABS: ABG ALLEN TEST YES; ARTERIAL BLOOD GAS HCO3 20.3 mmol/L (21-28); ARTERIAL BLOOD GAS HEMOGLOBIN 14.8 g/dL (11.7-17.4); ARTERIAL BLOOD GAS O2 CAPACITY 21.3 mL/dL (16-24); ARTERIAL BLOOD GAS O2 CONTENT 21.2 ML/dL (15-23); ARTERIAL BLOOD GAS O2 SAT 99.5 % (95-98); ARTERIAL BLOOD GAS PCO2 37 mm/Hg (35-45); ARTERIAL BLOOD GAS PH 7.33 (7.35-7.45); ARTERIAL BLOOD GAS PO2 494 mm/Hg (80-100); ARTERIAL BLOOD GAS TCO2 20.6 mmol/L (22-28)
[2018-04-27 13:16] LABS: BASO # 0.1 K/uL (0.0-0.2); BASO % 0.7 % (0.0-2.0); EOS # 0.4 K/uL (0.0-0.7); EOS % 3.5 % (0.0-4.0); LYMPH # 3.9 K/uL (1.0-4.3); LYMPH % 34.1 % (20.0-40.0); MEAN CELL VOLUME 82.9 fl (81.0-99.0); MEAN CORPUSCULAR HEMOGLOBIN 26.9 pg (27.0-31.0); MEAN CORPUSCULAR HGB CONC 32.5 g/dL (33.0-37.0); MEAN PLATELET VOLUME 9.4 fl (7.2-11.7); MONO % 9.1 % (0.0-10.0); NEUT % 52.6 % (50.0-75.0); RBC 5.2 Mil/uL (3.80-5.20); RED CELL DISTRIBUTION WIDTH 13.7 % (11.5-14.5); WHITE BLOOD COUNT 11.5 K/uL (4.8-10.8)
[2018-04-27] MEDS: Propofol 10 mg/ml 1,000 MG/100 ML VIAL IV SCH ×2 (13:20→21:05)
[2018-04-27] MEDS ORDERED: Albuterol-Ipratrop 3 mg / 0.5 (3 ml) UD ONE ×2 (13:30→14:23)
[2018-04-27] MEDS ORDERED: Propofol 10 mg/ml Inj (20 ML) IV ONE (13:30)
[2018-04-27] MEDS ORDERED: Propofol 10 mg/ml Inj (20 ML) ONE (13:31)
[2018-04-27] MEDS ORDERED: EPINEPHrine 1 mg/ml (1:1000) Inj ONE (13:31)
[2018-04-27 13:32] LABS: ALB/GLOB RATIO 1.2 (1.0-2.1); ALBUMIN 4.5 g/dL (3.5-5.0); ALT/SGPT 27 U/L (9-52); AST/SGOT 33 U/L (14-36); BLOOD UREA NITROGEN 17 mg/dl (7-17); CALCIUM 9.8 mg/dL (8.4-10.2); GFR NON-AFRICAN AMERICAN > 60
[2018-04-27 13:39] LABS: B-TYPE NATRIURETIC PEPTIDE 144 pg/ml (0-900)
[2018-04-27] MEDS ORDERED: EPINEPHrine 1 mg/ml (1:1000) Inj IM ONE (13:51)
--- NOTE | 2018-04-27 13:53 | CARD ---
APPROVED REPORT Date of service: 04/27/2018 EKG Measurement Heart [id number] <Conclusion> Normal sinus rhythm Nonspecific T wave changes Abnormal ECG
--- NOTE | 2018-04-27 14:00 | ED PDOC ---
HPI: SOB/CHF/COPD Time Seen by Provider: 04/27/18 12:57 Chief Complaint (Nursing): Respiratory Distress History Per: EMS (patient is brought in by EMS with paramedics with acute onset of severe shortness of breath. Patient has h/o asthma/COPD. She was given duonebX2, terbutaline, Magnesium and solumedrol and placed on bipap for transportation.) Past Medical History Reviewed: Historical Data, Nursing Documentation, Vital Signs Vital Signs: Last Vital Signs Temp Pulse 94 H 04/27/18 13:48 Resp 22 04/27/18 13:48 BP 144/74 04/27/18 13:48 Pulse Ox 98 04/27/18 13:48 - Medical History PMH: Anemia, Anxiety, Arthritis (R-L knee.), Asthma, Atrial Fibrillation, Bronchitis, Cardia Arrhythmia, COPD, Depression, Diverticulitis, Gastritis ( ulcer), GERD, HTN, Migraine, Pneumonia, Rheumatoid Arthritis Denies: HIV, Chronic Kidney Disease - Surgical History Surgical History: Cholecystectomy, (x3) - Family History Family History: States: Unknown Family Hx - Immunization History Hx Tetanus Toxoid Vaccination: Yes Hx Influenza Vaccination: Yes Hx Pneumococcal Vaccination: Yes - Home Medications Home Medications: Ambulatory Orders Medication Instructions Recorded Albuterol 0.083% [Albuterol 0.083% 3 ml IH Q8H PRN 05/15/17 Inhal Esther (2.5 mg/3 ml) UD] Albuterol HFA [Ventolin HFA 90 2 puff IH Q4H PRN 05/15/17 mcg/actuation (8 g)] DULoxetine [Cymbalta] 60 mg PO DAILY 05/15/17 Gabapentin [Neurontin] 300 mg PO HS 05/15/17 Montelukast [Singulair] 10 mg PO HS 05/15/17 Omeprazole 20 mg PO BID 05/15/17 QUEtiapine [Seroquel] 25 mg PO QPM 05/15/17 traZODone [Desyrel] 100 mg PO HS 05/15/17 Alprazolam [Xanax] 1 mg PO Q6 PRN 04/27/18 Cyclobenzaprine [Flexeril] 10 mg PO HS 04/27/18 Fluticasone/Salmeterol [Airduo 1 puff IH Q12 04/27/18 Respiclick 113-14 Mcg] Nicotine 21 mg/24 hr [Nicoderm Cq] 1 patch TD DAILY 04/27/18 Oxycodone HCl/Acetaminophen 1 tab PO Q8 PRN 04/27/18 [Percocet 10-325 mg Tablet] Triazolam [Halcion] 0.5 mg PO HS PRN 04/27/18 - Allergies Allergies/Adverse Reactions: Allergies Allergy/AdvReac Type Severity Reaction Status Date / Time ciprofloxacin [From Cipro] Allergy RASH Verified 05/15/17 16:36 ciprofloxacin HCl Allergy RASH Verified 05/15/17 16:36 [From Cipro] Penicillins Allergy RASH Verified 05/15/17 16:36 Review of Systems Review Of Systems: ROS cannot be obtained secondary to pt's inabilty to answer questions. Physical Exam - Reviewed Nursing Documentation Reviewed: Yes Vital Signs Reviewed: Yes - Physical Exam Appears: Positive for: Uncomfortable, In Acute Distress Head Exam: Positive for: ATRAUMATIC, NORMAL INSPECTION, NORMOCEPHALIC Skin: Positive for: Normal Color, Warm, DRY Eye Exam: Positive for: PERRL ENT: Positive for: Normal ENT Inspection Neck: Positive for: Normal Cardiovascular/Chest: Positive for: Regular Rate, Rhythm Respiratory: Positive for: Decreased Breath Sounds, Accessory Muscle Use, Wheezing, Respiratory Distress Gastrointestinal/Abdominal: Positive for: Normal Exam, Soft Back: Positive for: Normal Inspection Extremity: Positive for: Normal ROM Neurologic/Psych: Positive for: Alert, Oriented - Laboratory Results Result Diagrams: 04/27/18 13:00 04/27/18 13:00 - ECG O2 Sat by Pulse Oximetry: 98 - Critical Care Total Time (In Min): 60 Medical Decision Making Medical Decision Making: Due to persistent respiratory distress and chest discomfort, patient opted to be intubated. She gave verbal consent. Patient intubated via Glidescope after Etomidate and succinyl choline. Case d/w Dr. Martinez for ICU admission. Case d/w Dr. Johnston who has been her PMD in the past. On discussion with him, he states that he is no longer her PCP. Request admission to hospitalist service. Case d/w Dr. Bullock Disposition - Clinical Impression Clinical Impression: Acute respiratory distress - Patient ED Disposition Is Patient to be Admitted: Yes Doctor Will See Patient In The: Hospital - Disposition Disposition: Transfer of Care Disposition Time: 14:10 Condition: CRITICAL Forms: [facility] (Macedonian) - Pt Status Changed To: Hospital Disposition Of: Inpatient - Admit Certification Admit to Inpatient:: After my assessment, the patient will require hospitalization for at least two midnights. This is because of the severity of symptoms shown, intensity of services needed, and/or the medical risk in this patient being treated as an outpatient.
[2018-04-27] MEDS ORDERED: Morphine 4 MG/ML VIAL ONE (14:24)
[2018-04-27 14:41] LABS: SQUAMOUS EPITHIAL 2 /hpf (0-5); URINE BACTERIA RARE (<OCC); URINE BILIRUBIN NEGATIVE (NEGATIVE); URINE BLOOD NEGATIVE (NEGATIVE); URINE CLARITY CLOUDY (Clear); URINE COLOR YELLOW (YELLOW); URINE GLUCOSE (UA) NEG (Normal); URINE HYALINE CAST >20 /hpf (0-2); URINE LEUKOCYTE ESTERASE NEG Leu/uL (Negative); URINE PROTEIN 100 mg/dL (NEGATIVE); URINE UROBILINOGEN 0.2-1.0 mg/dL (0.2-1.0)
[2018-04-27] MEDS ORDERED: Albuterol-Ipratrop 3 mg / 0.5 (3 ml) UD INH PRN (15:02)
[2018-04-27] MEDS ORDERED: Albuterol 0.083% Inhal Sol (2.5 mg/3 mL) UD IH PRN (15:10)
--- NOTE | 2018-04-27 15:11 | RAD ---
HISTORY: dyspnea COMPARISON: Chest x-ray performed 05/24/17 TECHNIQUE: Chest, one view. FINDINGS: Examination limited by habitus, hypoinflation, and patient obliquity. External devices limited evaluation of the underlying parenchyma. Distal tip of an endotracheal tube terminates approximately 2.7 cm above the willie. LUNGS: Left hilar prominence versus hilar/infrahilar infiltrate. Prominence of the upper mediastinum. Please note that chest x-ray has limited sensitivity for the detection of pulmonary masses. PLEURA: No significant pleural effusion identified. No definite pneumothorax . CARDIOVASCULAR: Heart size appears borderline. No significant atherosclerotic calcification present. OSSEOUS STRUCTURES: Degenerative changes. VISUALIZED UPPER ABDOMEN: Unremarkable. OTHER FINDINGS: None. IMPRESSION: Left hilar prominence versus hilar/infrahilar infiltrate. Prominence of the upper mediastinum. If indicated, recommend CT of the chest with IV contrast. Endotracheal tube terminates approximately 2.7 cm above the willie.
[2018-04-27] MEDS ORDERED: Sodium Chloride 3% for Inhalation 4 ML VIAL.NEB IH PRN (15:17)
--- NOTE | 2018-04-27 15:21 | CP.CCUPN ---
CCU Subjective - Physician Review Subjective (Free Text): 57F with h/o COPD/ Asthma/Smoker/A Fib, HTN, Migraine, OA, Hayley, chronic opioids for BL knee pain, BIBA for resp distress, with chest tightness, on BiPAP support on arrival to ER, but persisted chest discomfort prompted oral intubation and MV support. Presently awake on max dose Propofol and breathing 23 on AC 12, 500 ml Tv and 100% oxygen. Does not appear distressed from her current breathing status, PPP 12, SPo2 100%, Ve= 10.4, and briefly placed on CPAP / PS 5 /5 with excellent tolerance. She received 3 doses of Duoneb and 2 more in ER prior to intubation, no further doses given post-intubation. Morphine IV ordered now to relieve chest discomfort and c/o cramps in LLE. Other vitals and I/O's reviewed. Afberile, BP 122/78, HR 95 sinus, hall output 100ml . ROS: No other pertinent negs or positives on 10+ system review. Allergies: Cipro, Pen Home Meds: Albuterol, Xanax, Flexeril, Cymbalta, Flutic/Salmet, Janis, Singulair, Nicoderm patch, Percocet, Seroquel, Desyrel, Halcion PMSFH: All other Nursing and physician documentation reviewed to date; no new pertinent info noted relevant to current medical problems. EXAM- HEENT: no icterus, no gaze preference, Pupils 3 mm and reactive NECK: No JVD visible, supple, carotids equal upstroke bilat/no bruit CHEST: diminished bilat BS, no wheezes audible HEART: regular, distant tachy S1S2, no rubs ABD: soft, no focal tenderness, no guarding, no organomegaly, BS hypoactive. EXT: no edema, no calf tenderness or palpable cords, distal pulses intact and symmetrical. NEURO: moves all 4 limbs spontaneously SKIN: no rashes, warm and dry LABS: WBC= 11.5 HGB= 14.0 PLTs= 313K Coags acceptable Na= 141 K= 4.0 XV=685 HCO3=19 BUN/Cr= 17/0.9 BS= 140 Trop#1 negative ALP =199 EKG: (my interp) sinus 100, T inversion 1, L, V1 CXR: (my interp) ETT position OK, prominent left hilar interstitial changes. IMPRESSION / MAJOR PROBLEMS NOW: 1. Acute Resp Insuff 2 Status Asthmaticus 2. r/o Pneumonia versus tracheobronchitis 3. Chronic Opioid use 4. Obesity PLAN: 1. Ensure additional and supplemental Duoneb inh via ETT now. 2. If PPP /PAP remain low and no audible wheezing evident, consider extubation. No weaning required. 3. IV Steroids, Q4-6H Albuterol/Ipatrop, empiric Abx coverage for CAP organisms. 4. Add narcotic analgesics to anxiolytics, if she requires continued MV support. Would get Pulm eval, too. 5. Consider CT chest to further eval Left hilar/ infrahilar area. 6. No Advance Directives known, full resuscitative measures if required.
[2018-04-27] MEDS ORDERED: Azithromycin 500 MG in Sodium Chloride 0.9% 250 ML IVPB STA (15:25)
[2018-04-27] MEDS ORDERED: Aztreonam 1 GM in Sodium Chloride 0.9% 100 ML IVPB ONE (15:32)
--- NOTE | 2018-04-27 15:40 | CP.PCM.HP ---
Addendum entered and electronically signed by David Bullock MD 04/27/18 17:56: Patient was seen and examined bedside .All chart and clinical data reviewed . Case discussed with resident . Agree with resident assessment and plan. 57 y/o female with PMH Asthma/ COPD , obesity , psychiatric disorder/ anxiety / depression , smoker chronic pain syndrome on opioids brought to ER for acute SOB and respiratory distress.She was treated for asthm,a exacerbation and acute respiratory failure , with Duobnebs , MgSO4 Solumedrol , placed on BIPAP initially on FIO2 100 % RR 12 PS 5 IPAP 10 with ABG 37/494 HCO3 20 Ph 7.33 Patient was intubated after showing signs of getting tired Initial CXR showed no infiltrate Currently on MV PRVC AC mode , awake while on Propopfol drip max dose , complaining of pain to left knee , chest and headache Repeat CVXR post intubation showing left hilar opacity suspicious for infiltrate Will admit patuinet in ICU Pulmonary consulted Continue vent management , Duonebs RTC , Solumedrol 40 mg Iv Q6 hours Cultures sent Repeat ABG now Started empirically on Iv antibiotics Original Note: History of Present Illness - History of Present Illness History of Present Illness: CC: Respiratory distress HPI: History is obtained from reviewing chart medical records and nurse reports secondary to patient being intubated and unable to provide full history. The patient is 57 Y/O Female with PMHx of Asthma/COPD, smoker, Obesity, Arthritis, chronic pain taking opioids, Depresion, anxiety, also there is h/o in MR of A fibrillation. Patient was brought todday by EMS with acute onset of SOB, she received Duoneb x 2, Terbutaline, magnesium and solumedrol and placed in Bipap for transportation. In the ED due to continued respiratory distress and chest discomfort patient gave consent for intubation. Patient has history of previous admission to ICU requiring intubation x2 in 2017. Patient is awake at this time with propfol IV and signals c/o left knee pain and lower chest rib cage discomfort. PMD: Unable to obtained PMHx: as per HPI after EMR reviewed. PSHx: Left Knee surgery, x3, Cholecystectomy, ovarian cystectomy. Social Hx: Former smoker as per MR reviewed. FMHx: non-contributory. Allergies: Cipro and PCN(itchiness) ROS: unable to obtain due to patient is intubated. ED course: VS: HR 128, RR 47, BP 127/65, O2 sat 99% BiPAP. Patient was intubated via glidescope after Etomidate and succinyl choline, LABS: WBC= 11.5,HGB= 14, PLTs= 313 Na= 141 Chem: K= 4.0,LT=205, HCO3=19, BUN/Cr= 17/0.9, BS= 140,Trop#1 negative,ALP =199 ED ABG: pH 7.33, pCO2 37, pO2 494 EKG: NSR, nonspecific t wave changes. CXR: ETT in position above willie, prominent left hilar interstitial changes. Vent Setting: Rate 12, TV500, PEEP 5, FiO2 100% Present on Admission - Present on Admission Any Indicators Present on Admission: No History of DVT/PE: No History of Uncontrolled Diabetes: No Urinary Catheter: No Decubitus Ulcer Present: No Past Patient History - Infectious Disease Hx of Infectious Diseases: None - Tetanus Immunizations Tetanus Immunization: Unknown - Past Medical History & Family History Past Medical History?: Yes - Past Social History Smoking Status: Light Smoker < 10 Cigarettes Daily - CARDIAC Hx Atrial Fibrillation: Yes Hx Cardia Arrhythmia: Yes Hx Hypertension: Yes - PULMONARY Hx Asthma: Yes Hx Bronchitis: Yes Hx Chronic Obstructive Pulmonary Disease (COPD): Yes Hx Pneumonia: Yes - NEUROLOGICAL Hx Migraine: Yes - HEENT Hx HEENT Problems: No - RENAL Hx Chronic Kidney Disease: No - ENDOCRINE/METABOLIC Hx Endocrine Disorders: No - HEMATOLOGICAL/ONCOLOGICAL Hx Anemia: Yes Hx Human Immunodeficiency Virus (HIV): No - INTEGUMENTARY Hx Dermatological Problems: No - MUSCULOSKELETAL/RHEUMATOLOGICAL Hx Arthritis: Yes (R-L knee.) Hx Rheumatoid Arthritis: Yes - GASTROINTESTINAL Hx Diverticulitis: Yes Hx Gastritis: Yes (ulcer) - GENITOURINARY/GYNECOLOGICAL Hx Genitourinary Disorders: No - PSYCHIATRIC Hx Anxiety: Yes Hx Depression: Yes - SURGICAL HISTORY Hx Cholecystectomy: Yes - ANESTHESIA Hx Anesthesia: Yes Hx Anesthesia Reactions: No Hx Malignant Hyperthermia: No Meds Allergies/Adverse Reactions: Allergies Allergy/AdvReac Type Severity Reaction Status Date / Time ciprofloxacin [From Cipro] Allergy RASH Verified 05/15/17 16:36 ciprofloxacin HCl Allergy RASH Verified 05/15/17 16:36 [From Cipro] Penicillins Allergy RASH Verified 05/15/17 16:36 Physical Exam - Constitutional Appears: Non-toxic, Agitated Additional comments: mildly agitated due to intubation and being awake. - Head Exam Head Exam: ATRAUMATIC, NORMOCEPHALIC - Eye Exam Eye Exam: EOMI, PERRL - ENT Exam ENT Exam: Mucous Membranes Moist Additional comments: ETT in place - Neck Exam Neck exam: Negative for: Lymphadenopathy - Respiratory Exam Respiratory Exam: Decreased Breath Sounds, Rhonchi, Wheezes - Cardiovascular Exam Cardiovascular Exam: REGULAR RHYTHM, +S1, +S2. absent: JVD - GI/Abdominal Exam GI & Abdominal Exam: Normal Bowel Sounds, Soft. absent: Guarding, Tenderness - Extremities Exam Extremities exam: Negative for: joint swelling, pedal edema Additional comments: No knee joint swelling noted - Neurological Exam Neurological exam: Alert - Psychiatric Exam Psychiatric exam: Anxious - Skin Skin Exam: Intact, Normal Color, Warm Results - Vital Signs Recent Vital Signs: Last Vital Signs Temp Pulse 99 H 04/27/18 14:25 Resp 22 04/27/18 14:25 BP 119/83 04/27/18 14:25 Pulse Ox 92 L 04/27/18 14:25 - Labs Result Diagrams: 04/27/18 13:00 04/27/18 13:00 Labs: Laboratory Results - last 24 hr 04/27/18 04/27/18 04/27/18 12:52 12:59 13:00 WBC RBC Hgb Hct MCV MCH MCHC RDW Plt Count MPV Neut % (Auto) Lymph % (Auto) [place] % (Auto) Eos % (Auto) Baso % (Auto) Neut # (Auto) Lymph # (Auto) [place] # (Auto) Eos # (Auto) Baso # (Auto) pCO2 37 pO2 494 H HCO3 20.3 L ABG pH 7.33 L ABG Total CO2 20.6 L ABG O2 Saturation 99.5 H ABG O2 Content 21.2 ABG Base Excess -5.8 L ABG Hemoglobin 14.8 ABG Carboxyhemoglobin 1.2 POC ABG HHb (Measured) 0.5 ABG Methemoglobin 2.8 ABG O2 Capacity 21.3 [place] Test Yes A-a O2 Difference 173.0 Hgb O2 Saturation 95.5 Liter Flow 12 FiO2 100.0 Pressure Support 5 Inspiratory BiPAP [address] paz saw Crit Value Called To Dr jackson sánchez Crit Value Called By 15 Crit Value Read Back Y Blood Gas Notified Time 1303 Sodium 141 Potassium 4.0 Chloride 107 Carbon Dioxide 19 L Anion Gap 19 BUN 17 Creatinine 0.9 Est GFR ( Amer) > 60 Est GFR (Non-Af Amer) > 60 POC Glucose (mg/dL) 124 H Random Glucose 140 H Calcium 9.8 Total Bilirubin 0.4 AST 33 ALT 27 Alkaline Phosphatase 199 H D Troponin I < 0.0120 NT-Pro-B Natriuret Pep 144 Total Protein 8.2 Albumin 4.5 Globulin 3.7 Albumin/Globulin Ratio 1.2 Urine Color Urine Clarity Urine pH Ur Specific [place] Urine Protein Urine Glucose (UA) Urine Ketones Urine Blood Urine Nitrate Urine Bilirubin Urine Urobilinogen Ur Leukocyte Esterase Urine RBC (Auto) Urine Microscopic WBC Ur Squamous Epith Cells Urine Bacteria Hyaline Casts Influenza Typ A,B (EIA) 04/27/18 04/27/18 04/27/18 13:00 13:00 14:18 WBC 11.5 H RBC 5.20 Hgb 14.0 Hct 43.1 MCV 82.9 MCH 26.9 L MCHC 32.5 L RDW 13.7 Plt Count 313 D MPV 9.4 Neut % (Auto) 52.6 Lymph % (Auto) 34.1 [place] % (Auto) 9.1 Eos % (Auto) 3.5 Baso % (Auto) 0.7 Neut # (Auto) 6.0 Lymph # (Auto) 3.9 [place] # (Auto) 1.0 H Eos # (Auto) 0.4 Baso # (Auto) 0.1 pCO2 pO2 HCO3 ABG pH ABG Total CO2 ABG O2 Saturation ABG O2 Content ABG Base Excess ABG Hemoglobin ABG Carboxyhemoglobin POC ABG HHb (Measured) ABG Methemoglobin ABG O2 Capacity [place] Test A-a O2 Difference Hgb O2 Saturation Liter Flow FiO2 Pressure Support Inspiratory BiPAP Blood Gas Comments Crit Value Called To Crit Value Called By Crit Value Read Back Blood Gas Notified Time Sodium Potassium Chloride Carbon Dioxide Anion Gap BUN Creatinine Est GFR ( Amer) Est GFR (Non-Af Amer) POC Glucose (mg/dL) Random Glucose Calcium Total Bilirubin AST ALT Alkaline Phosphatase Troponin I NT-Pro-B Natriuret Pep Total Protein Albumin Globulin Albumin/Globulin Ratio Urine Color Yellow Urine Clarity Cloudy Urine pH 5.0 Ur Specific [place] 1.023 Urine Protein 100 Urine Glucose (UA) Neg Urine Ketones Negative Urine Blood Negative Urine Nitrate Negative Urine Bilirubin Negative Urine Urobilinogen 0.2-1.0 Ur Leukocyte Esterase Neg Urine RBC (Auto) 3 Urine Microscopic WBC 3 Ur Squamous Epith Cells 2 Urine Bacteria Rare Hyaline Casts >20 H Influenza Typ A,B (EIA) Negative for flu a/b Assessment & Plan - Assessment and Plan (Free Text) Assessment: 57 Y/O Female with PMHx of Asthma/COPD, smoker, Obesity, Arthritis, chronic pain taking opioids, Depresion, anxiety, also there is h/o A fib in EMR, and previous admissions to ICU for Asthma/ COPD exacerbation x2 last year. Patient was brought by EMS in respiratory distress after she received Duoneb x 2, Terbutaline, magnesium and solumedrol and placed in Bipap for transportation. Patient was intubated in the ED due to respiratory distress. Plan: 1. Hypoxic Respiratory Failure secondary to Asthma exacerbation -Admission to ICU for Ventilation management -NPO-IVF NS 100 ml -Pulmonary consult: Dr. Rogel, Recommendations are appreciated -Duoneb INH Neb unit dose Q 4h -Solumedrol 40 mg IV BID -f/u repeat ABG in AM -f/u repeat CXR in AM 2. Pneumonia -Aztreonam 2G IV Q8h -Zithromax 500 mg IV QD -Pulmonary consult, Dr Holder. -F/u CXR, CBC in AM 3.Chronic pain likely secondary to OA -Toradol 30 IVP Q6h PRN pain -Home meds on hold. 4. Hx of Depression/Anxiety -Home meds on hold -Ativan 2 mg IV Q6h PRN agitation 5.Obesity -BMI 35.4 DVT Prophylaxis Lovenox 40 Sc QD Code Status: Full code.
[2018-04-27] MEDS ORDERED: Albuterol 0.083% Inhal Sol (2.5 mg/3 mL) UD INH SCH (16:00)
[2018-04-27] MEDS ORDERED: methylPREDNISolone 40 MG in Sodium Chloride 0.9% 50 ML IVPB SCH ×3 (16:00→22:00)
[2018-04-27] MEDS ORDERED: Ipratropium 0.02% Inhal Soln (0.5 mg/2.5 ml) UD IH SCH (16:00)
[2018-04-27] MEDS: Albuterol-Ipratrop 3 mg / 0.5 (3 ml) UD INH SCH ×3 (16:25→23:48)
[2018-04-27] MEDS: Azithromycin 500 MG in Sodium Chloride 0.9% 250 ML IVPB SCH (17:11)
[2018-04-27] MEDS: Sodium Chloride 0.9% 1,000 ML IV SCH (17:12)
[2018-04-27] MEDS: Aztreonam 2 GM in Sodium Chloride 0.9% 100 ML IVPB SCH (20:16)
[2018-04-27] MEDS ORDERED: MethylPREDNISolone 40 mg Vial IVP SCH (21:00)
[2018-04-27] MEDS: MethylPREDNISolone 40 mg Vial IVP SCH (22:02)
--- NOTE | 2018-04-27 23:33 | CP.PCM.CON ---
History of Present Illness - History of Present Illness History of Present Illness: Patient seen and examined. Chart reviewed; full consult to follow. Cont present treatment as per Physicist [place]. Past Patient History - Infectious Disease Hx of Infectious Diseases: None - Tetanus Immunizations Tetanus Immunization: Unknown - Past Medical History & Family History Past Medical History?: Yes - Past Social History Smoking Status: Light Smoker < 10 Cigarettes Daily - CARDIAC Hx Atrial Fibrillation: Yes Hx Cardia Arrhythmia: Yes Hx Hypertension: Yes - PULMONARY Hx Asthma: Yes Hx Bronchitis: Yes Hx Chronic Obstructive Pulmonary Disease (COPD): Yes Hx Pneumonia: Yes - NEUROLOGICAL Hx Migraine: Yes - HEENT Hx HEENT Problems: No - RENAL Hx Chronic Kidney Disease: No - ENDOCRINE/METABOLIC Hx Endocrine Disorders: No - HEMATOLOGICAL/ONCOLOGICAL Hx Anemia: Yes Hx Human Immunodeficiency Virus (HIV): No - INTEGUMENTARY Hx Dermatological Problems: No - MUSCULOSKELETAL/RHEUMATOLOGICAL Hx Arthritis: Yes (R-L knee.) Hx Rheumatoid Arthritis: Yes - GASTROINTESTINAL Hx Diverticulitis: Yes Hx Gastritis: Yes (ulcer) - GENITOURINARY/GYNECOLOGICAL Hx Genitourinary Disorders: No - PSYCHIATRIC Hx Anxiety: Yes Hx Depression: Yes - SURGICAL HISTORY Hx Cholecystectomy: Yes - ANESTHESIA Hx Anesthesia: Yes Hx Anesthesia Reactions: No Hx Malignant Hyperthermia: No Meds Allergies/Adverse Reactions: Allergies Allergy/AdvReac Type Severity Reaction Status Date / Time ciprofloxacin [From Cipro] Allergy RASH Verified 05/15/17 16:36 ciprofloxacin HCl Allergy RASH Verified 05/15/17 16:36 [From Cipro] Penicillins Allergy RASH Verified 05/15/17 16:36 - Medications Medications: Current Medications Albuterol/Ipratropium (Duoneb 3 Mg/0.5 Mg (3 Ml) Ud) 3 ml INH RQ4 MILI Last Admin: 04/27/18 19:25 Dose: 3 ml Enoxaparin Sodium (Lovenox) 40 mg SC DAILY MILI; Protocol Propofol (Diprivan) 1,000 mg in 100 mls @ 2.722 mls/hr IV .Q24H MILI; Protocol Stop: 04/28/18 13:30 Last Admin: 04/27/18 21:05 Dose: 50 mcg/kg/min, 27.215 mls/hr Sodium Chloride (Sodium Chloride 0.9%) 1,000 mls @ 100 mls/hr IV .Q10H MILI Last Admin: 04/27/18 17:12 Dose: 100 mls/hr Azithromycin 500 mg/ Sodium (Chloride) 250 mls @ 250 mls/hr IVPB DAILY MILI; Protocol Last Admin: 04/27/18 17:11 Dose: 250 mls/hr Aztreonam 2 gm/ Sodium (Chloride) 100 mls @ 100 mls/hr IVPB Q8 MILI; Protocol Last Admin: 04/27/18 20:16 Dose: 100 mls/hr Ketorolac Tromethamine (Toradol) 30 mg IVP Q6H PRN PRN Reason: Pain, moderate (4-7) Last Admin: 04/27/18 17:23 Dose: 30 mg Lorazepam (Ativan) 2 mg IVP Q6 PRN PRN Reason: Agitation Last Admin: 04/27/18 20:20 Dose: 2 mg Methylprednisolone (Solu-Medrol) 40 mg IVP Q6 MILI Last Admin: 04/27/18 22:02 Dose: 40 mg Morphine Sulfate (Morphine) 4 mg IVP Q2 PRN PRN Reason: Pain, moderate (4-7) Last Admin: 04/27/18 22:15 Dose: 4 mg Nicotine (Nicoderm Cq) 1 patch TD DAILY MILI Last Admin: 04/27/18 22:01 Dose: 1 patch Results - Vital Signs Recent Vital Signs: Last Vital Signs Temp 98.8 F 04/27/18 20:00 Pulse 107 H 04/27/18 23:00 Resp 23 04/27/18 23:00 BP 141/85 04/27/18 22:00 Pulse Ox 93 L 04/27/18 23:00 - Labs Result Diagrams: 04/27/18 13:00 04/27/18 13:00 Labs: Laboratory Results - last 24 hr 04/27/18 04/27/18 04/27/18 12:52 12:59 13:00 WBC RBC Hgb Hct MCV MCH MCHC RDW Plt Count MPV Neut % (Auto) Lymph % (Auto) [place] % (Auto) Eos % (Auto) Baso % (Auto) Neut # (Auto) Lymph # (Auto) [place] # (Auto) Eos # (Auto) Baso # (Auto) pCO2 37 pO2 494 H HCO3 20.3 L ABG pH 7.33 L ABG Total CO2 20.6 L ABG O2 Saturation 99.5 H ABG O2 Content 21.2 ABG Base Excess -5.8 L ABG Hemoglobin 14.8 ABG Carboxyhemoglobin 1.2 POC ABG HHb (Measured) 0.5 ABG Methemoglobin 2.8 ABG O2 Capacity 21.3 [place] Test Yes A-a O2 Difference 173.0 Hgb O2 Saturation 95.5 Liter Flow 12 FiO2 100.0 Pressure Support 5 Inspiratory BiPAP [address] jackson bruce Crit Value Called To Dr jackson sánchez Crit Value Called By 15 Crit Value Read Back Y Blood Gas Notified Time 1303 Sodium 141 Potassium 4.0 Chloride 107 Carbon Dioxide 19 L Anion Gap 19 BUN 17 Creatinine 0.9 Est GFR ( Amer) > 60 Est GFR (Non-Af Amer) > 60 POC Glucose (mg/dL) 124 H Random Glucose 140 H Calcium 9.8 Total Bilirubin 0.4 AST 33 ALT 27 Alkaline Phosphatase 199 H D Troponin I < 0.0120 NT-Pro-B Natriuret Pep 144 Total Protein 8.2 Albumin 4.5 Globulin 3.7 Albumin/Globulin Ratio 1.2 Urine Color Urine Clarity Urine pH Ur Specific [place] Urine Protein Urine Glucose (UA) Urine Ketones Urine Blood Urine Nitrate Urine Bilirubin Urine Urobilinogen Ur Leukocyte Esterase Urine RBC (Auto) Urine Microscopic WBC Ur Squamous Epith Cells Urine Bacteria Hyaline Casts Influenza Typ A,B (EIA) 04/27/18 04/27/18 04/27/18 13:00 13:00 14:18 WBC 11.5 H RBC 5.20 Hgb 14.0 Hct 43.1 MCV 82.9 MCH 26.9 L MCHC 32.5 L RDW 13.7 Plt Count 313 D MPV 9.4 Neut % (Auto) 52.6 Lymph % (Auto) 34.1 [place] % (Auto) 9.1 Eos % (Auto) 3.5 Baso % (Auto) 0.7 Neut # (Auto) 6.0 Lymph # (Auto) 3.9 [place] # (Auto) 1.0 H Eos # (Auto) 0.4 Baso # (Auto) 0.1 pCO2 pO2 HCO3 ABG pH ABG Total CO2 ABG O2 Saturation ABG O2 Content ABG Base Excess ABG Hemoglobin ABG Carboxyhemoglobin POC ABG HHb (Measured) ABG Methemoglobin ABG O2 Capacity [place] Test A-a O2 Difference Hgb O2 Saturation Liter Flow FiO2 Pressure Support Inspiratory BiPAP Blood Gas Comments Crit Value Called To Crit Value Called By Crit Value Read Back Blood Gas Notified Time Sodium Potassium Chloride Carbon Dioxide Anion Gap BUN Creatinine Est GFR ( Amer) Est GFR (Non-Af Amer) POC Glucose (mg/dL) Random Glucose Calcium Total Bilirubin AST ALT Alkaline Phosphatase Troponin I NT-Pro-B Natriuret Pep Total Protein Albumin Globulin Albumin/Globulin Ratio Urine Color Yellow Urine Clarity Cloudy Urine pH 5.0 Ur Specific [place] 1.023 Urine Protein 100 Urine Glucose (UA) Neg Urine Ketones Negative Urine Blood Negative Urine Nitrate Negative Urine Bilirubin Negative Urine Urobilinogen 0.2-1.0 Ur Leukocyte Esterase Neg Urine RBC (Auto) 3 Urine Microscopic WBC 3 Ur Squamous Epith Cells 2 Urine Bacteria Rare Hyaline Casts >20 H Influenza Typ A,B (EIA) Negative for flu a/b 04/27/18 04/27/18 04/27/18 16:49 21:01 21:14 WBC RBC Hgb Hct MCV MCH MCHC RDW Plt Count MPV Neut % (Auto) Lymph % (Auto) [place] % (Auto) Eos % (Auto) Baso % (Auto) Neut # (Auto) Lymph # (Auto) [place] # (Auto) Eos # (Auto) Baso # (Auto) pCO2 pO2 HCO3 ABG pH ABG Total CO2 ABG O2 Saturation ABG O2 Content ABG Base Excess ABG Hemoglobin ABG Carboxyhemoglobin POC ABG HHb (Measured) ABG Methemoglobin ABG O2 Capacity [place] Test A-a O2 Difference Hgb O2 Saturation Liter Flow FiO2 Pressure Support Inspiratory BiPAP Blood Gas Comments Crit Value Called To Crit Value Called By Crit Value Read Back Blood Gas Notified Time Sodium Potassium Chloride Carbon Dioxide Anion Gap BUN Creatinine Est GFR ( Amer) Est GFR (Non-Af Amer) POC Glucose (mg/dL) 144 H 159 H Random Glucose Calcium Total Bilirubin AST ALT Alkaline Phosphatase Troponin I 0.0620 NT-Pro-B Natriuret Pep Total Protein Albumin Globulin Albumin/Globulin Ratio Urine Color Urine Clarity Urine pH Ur Specific [place] Urine Protein Urine Glucose (UA) Urine Ketones Urine Blood Urine Nitrate Urine Bilirubin Urine Urobilinogen Ur Leukocyte Esterase Urine RBC (Auto) Urine Microscopic WBC Ur Squamous Epith Cells Urine Bacteria Hyaline Casts Influenza Typ A,B (EIA)
[2018-04-28] MEDS: Aztreonam 2 GM in Sodium Chloride 0.9% 100 ML IVPB SCH ×3 (00:56→16:02)
[2018-04-28] MEDS: Morphine 4 MG/ML VIAL IVP PRN ×4 (02:50→23:39)
[2018-04-28] MEDS: Albuterol-Ipratrop 3 mg / 0.5 (3 ml) UD INH SCH ×6 (05:05→23:31)
[2018-04-28] MEDS: MethylPREDNISolone 40 mg Vial IVP SCH ×4 (05:06→21:37)
[2018-04-28 05:13] LABS: BASO % 0.1 % (0.0-2.0); HEMOGLOBIN 12.5 g/dL (12.0-16.0); LYMPH # 0.8 K/uL (1.0-4.3); MEAN CELL VOLUME 82.2 fl (81.0-99.0); MEAN CORPUSCULAR HEMOGLOBIN 26.8 pg (27.0-31.0); MEAN CORPUSCULAR HGB CONC 32.7 g/dL (33.0-37.0); MEAN PLATELET VOLUME 9.4 fl (7.2-11.7); MONO # 0.1 K/uL (0.0-0.8); MONO % 1.1 % (0.0-10.0); NEUT # 9.6 K/uL (1.8-7.0); NEUT % 90.8 % (50.0-75.0); NRBC % 0.1 % (0.0-0.0); PLATELET COUNT 208 K/uL (130-400); RBC 4.64 Mil/uL (3.80-5.20); RED CELL DISTRIBUTION WIDTH 13.7 % (11.5-14.5); WHITE BLOOD COUNT 10.6 K/uL (4.8-10.8)
[2018-04-28 05:29] LABS: ALB/GLOB RATIO 1.2 (1.0-2.1); ALBUMIN 3.7 g/dL (3.5-5.0); ALT/SGPT 46 U/L (9-52); AST/SGOT 35 U/L (14-36); BLOOD UREA NITROGEN 16 mg/dl (7-17); CALCIUM 9.1 mg/dL (8.4-10.2); GFR NON-AFRICAN AMERICAN > 60
[2018-04-28 05:40] LABS: ABG ALLEN TEST YES; ARTERIAL BLOOD GAS HCO3 23.6 mmol/L (21-28); ARTERIAL BLOOD GAS O2 SAT 95.2 % (95-98); ARTERIAL BLOOD GAS PCO2 37 mm/Hg (35-45); ARTERIAL BLOOD GAS PO2 63 mm/Hg (80-100)
[2018-04-28 05:50] LABS: LYMPHOCYTE 9 % (20-50); MONOCYTE 1 % (0-10); NEUTROPHIL 90 % (42-75); TOTAL CELLS COUNTED 100
[2018-04-28 05:51] LABS: ANISOCYTOSIS SLIGHT; PLATELET ESTIMATE NORMAL (NORMAL)
[2018-04-28] MEDS: Propofol 10 mg/ml 1,000 MG/100 ML VIAL IV SCH ×3 (09:28→21:22)
[2018-04-28] MEDS: Enoxaparin 40 mg Syringe SC SCH (09:31)
[2018-04-28] MEDS: Azithromycin 500 MG in Sodium Chloride 0.9% 250 ML IVPB SCH (09:32)
--- NOTE | 2018-04-28 10:33 | CP.PCM.PN ---
Subjective - Date & Time of Evaluation Date of Evaluation: 04/28/18 Time of Evaluation: 10:00 - Subjective Subjective: Intubated on Vent - AC 8/500/5/ 40%- Saturating wee discussed with DR Centeno -plan to change to CPAP Pt seem restless despite being on Propofol drip and IV Morphine q2 complains of left knee pain No fever Objective - Vital Signs/Intake and Output Vital Signs (last 24 hours): Temp Pulse Resp BP Pulse Ox 98 F 90 15 169/101 H 96 04/28/18 04:00 04/28/18 10:00 04/28/18 10:00 04/28/18 10:00 04/28/18 10:00 Intake and Output: 04/28/18 04/28/18 06:59 18:59 Intake Total 1650 50 Output Total 750 Balance 900 50 - Medications Medications: Current Medications Albuterol/Ipratropium (Duoneb 3 Mg/0.5 Mg (3 Ml) Ud) 3 ml INH RQ4 MILI Last Admin: 04/28/18 07:31 Dose: 3 ml Enoxaparin Sodium (Lovenox) 40 mg SC DAILY MILI; Protocol Last Admin: 04/28/18 09:31 Dose: 40 mg Propofol (Diprivan) 1,000 mg in 100 mls @ 2.722 mls/hr IV .Q24H MILI; Protocol Stop: 04/28/18 13:30 Last Admin: 04/28/18 09:28 Dose: 50 mcg/kg/min, 27.215 mls/hr Sodium Chloride (Sodium Chloride 0.9%) 1,000 mls @ 100 mls/hr IV .Q10H MILI Last Admin: 04/27/18 17:12 Dose: 100 mls/hr Azithromycin 500 mg/ Sodium (Chloride) 250 mls @ 250 mls/hr IVPB DAILY MILI; Protocol Last Admin: 04/28/18 09:32 Dose: 250 mls/hr Aztreonam 2 gm/ Sodium (Chloride) 100 mls @ 100 mls/hr IVPB Q8 MILI; Protocol Last Admin: 04/28/18 09:02 Dose: 100 mls/hr Ketorolac Tromethamine (Toradol) 30 mg IVP Q6H PRN PRN Reason: Pain, moderate (4-7) Last Admin: 04/27/18 17:23 Dose: 30 mg Lorazepam (Ativan) 2 mg IVP Q6 PRN PRN Reason: Agitation Last Admin: 04/28/18 05:06 Dose: 2 mg Methylprednisolone (Solu-Medrol) 40 mg IVP Q6 [facility] Last Admin: 04/28/18 09:31 Dose: 40 mg Morphine Sulfate (Morphine) 4 mg IVP Q2 PRN PRN Reason: Pain, moderate (4-7) Last Admin: 04/28/18 09:39 Dose: 4 mg Nicotine (Nicoderm Cq) 1 patch TD DAILY [facility] Last Admin: 04/28/18 09:31 Dose: 1 patch - Labs Labs: 04/28/18 04:31 04/28/18 04:31 - Constitutional Appears: In Acute Distress, Agitated (Intubated on Vent), Other - Head Exam Head Exam: ATRAUMATIC, NORMAL INSPECTION, NORMOCEPHALIC - Eye Exam Eye Exam: EOMI, Normal appearance, PERRL Pupil Exam: NORMAL ACCOMODATION - ENT Exam ENT Exam: Mucous Membranes Dry, Normal External Ear Exam - Neck Exam Neck Exam: Full ROM. absent: Meningismus - Respiratory Exam Respiratory Exam: Rales, Rhonchi, Wheezes Additional comments: Intubated on Vent - Cardiovascular Exam Cardiovascular Exam: REGULAR RHYTHM, +S1, +S2 - GI/Abdominal Exam GI & Abdominal Exam: Soft, Normal Bowel Sounds. absent: Tenderness - Extremities Exam Extremities Exam: Full ROM, Normal Capillary Refill. absent: Calf Tenderness, Pedal Edema - Neurological Exam Neurological Exam: Alert, Awake Neuro motor strength exam: Left Upper Extremity: 5, Right Upper Extremity: 5, Left Lower Extremity: 5, Right Lower Extremity: 5 Additional comments: follows commands - Psychiatric Exam Psychiatric exam: Anxious - Skin Skin Exam: Dry, Normal Color, Warm Assessment and Plan - Assessment and Plan (Free Text) Assessment: 57 Y/O Female with PMHx of Asthma/COPD, smoker, Obesity, Arthritis, Chronic pain on opioids, Depression, anxiety, also there is h/o A fib in EMR, and previous admissions to ICU for Asthma/ COPD exacerbation x2 last year. Patient was brought by EMS in respiratory distress - she received Duoneb x 2, Terbutaline, magnesium and solumedrol and placed in Bipap enroute to thehospital. Patient was intubated in the ED due to respiratory distress. 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 Juan F Vines INH Neb unit dose Q 4h -Solumedrol 40 mg IV q6 2. Pneumonia -Aztreonam 2G IV Q8h -Zithromax 500 mg IV QD -Pulmonary consult, Dr Holder. - CXR : hilar infiltrate 3.Chronic pain likely secondary to OA -Toradol 30 IVP Q6h PRN pain - Pt is also on Morphine IV 4. Hx of Depression/Anxiety -Home meds on hold -Ativan 2 mg IV Q6h PRN agitation 5.Obesity -BMI 35.4 DVT Prophylaxis Lovenox 40 Sc QD Code Status: Full code.
--- NOTE | 2018-04-28 10:41 | CP.CCUPN ---
CCU Subjective - Physician Review Events Since Last Encounter (Free Text): 04/28/18 10:35 On vent, saturation is good, BP is high but somewhat restless even on propofol and ativan and q2 h morphine. , CCU Objective - Vital Signs / Intake & Output Vital Signs (Last 4 hours): Vital Signs Pulse Resp BP Pulse Ox 04/28/18 10:00 90 15 169/101 H 96 Intake and Output (Last 8hrs): Intake & Output 04/27/18 04/28/18 04/28/18 22:59 06:59 14:59 Intake Total 638 1300 50 Output Total 1200 750 Balance -562 550 50 Weight 235 lb Intake: IV 500 900 50 Intake, Piggyback 138 100 Other 300 Output: Urine 1200 750 Urethral (Gallardo) 1200 750 - Physical Exam Narrative Physical Exam (Free Text): 04/28/18 10:36 P/E Neck: No JVD Lungs: Bilateral ronchi Abdomen: soft, non-tender Ext: No edema Heart: no gallop. - Medications Active Medications: Active Medications Generic Name Dose Route Start Last Admin Trade Name Freq PRN Reason Stop Dose Admin Albuterol/Ipratropium 3 ml 04/27/18 16:00 04/28/18 07:31 Duoneb 3 Mg/0.5 Mg (3 Ml) Ud INH 3 ml RQ4 MILI Administration Enoxaparin Sodium 40 mg 04/28/18 09:00 04/28/18 09:31 Lovenox SC 40 mg DAILY MILI Administration Protocol Hydralazine HCl 10 mg 04/28/18 10:33 Apresoline IV Q6 PRN for SBP> 160 Propofol 1,000 mg in 100 mls @ 2.722 mls/hr 04/27/18 13:30 04/28/18 09:28 Diprivan IV 04/28/18 13:30 50 mcg/kg/min .Q24H MILI 27.215 mls/hr Administration Protocol 5 MCG/KG/MIN Sodium Chloride 1,000 mls @ 100 mls/hr 04/27/18 15:15 04/27/18 17:12 Sodium Chloride 0.9% IV 100 mls/hr .Q10H MILI Administration Azithromycin 500 mg/ Sodium 250 mls @ 250 mls/hr 04/27/18 15:45 04/28/18 09:32 Chloride IVPB 250 mls/hr DAILY MILI Administration Protocol Aztreonam 2 gm/ Sodium 100 mls @ 100 mls/hr 04/27/18 17:00 04/28/18 09:02 Chloride IVPB 100 mls/hr Q8 MILI Administration Protocol Ketorolac Tromethamine 30 mg 04/27/18 15:10 04/27/18 17:23 Toradol IVP 30 mg Q6H PRN Administration Pain, moderate (4-7) Lorazepam 2 mg 04/27/18 16:10 04/28/18 05:06 Ativan IVP 2 mg Q6 PRN Administration Agitation Methylprednisolone 40 mg 04/27/18 22:00 04/28/18 09:31 Solu-Medrol IVP 40 mg Q6 MILI Administration Morphine Sulfate 4 mg 04/28/18 03:00 04/28/18 09:39 Morphine IVP 4 mg Q2 PRN Administration Pain, moderate (4-7) Nicotine 1 patch 04/27/18 20:30 04/28/18 09:31 Nicoderm Cq TD 1 patch DAILY MILI Administration - Patient Studies Lab Studies: Lab Studies 04/28/18 04/28/18 04/28/18 Range/Units 06:02 05:29 04:31 WBC (4.8-10.8) K/uL RBC (3.80-5.20) Mil/uL Hgb (12.0-16.0) g/dL Hct (34.0-47.0) % MCV (81.0-99.0) fl MCH (27.0-31.0) pg MCHC (33.0-37.0) g/dL RDW (11.5-14.5) % Plt Count (130-400) K/uL MPV (7.2-11.7) fl Neut % (Auto) (50.0-75.0) % Lymph % (Auto) (20.0-40.0) % [place] % (Auto) (0.0-10.0) % Eos % (Auto) (0.0-4.0) % Baso % (Auto) (0.0-2.0) % Neut # (Auto) (1.8-7.0) K/uL Lymph # (Auto) (1.0-4.3) K/uL [place] # (Auto) (0.0-0.8) K/uL Eos # (Auto) (0.0-0.7) K/uL Baso # (Auto) (0.0-0.2) K/uL Neutrophils % (Manual) (42-75) % Lymphocytes % (Manual) (20-50) % Monocytes % (Manual) (0-10) % Platelet Estimate (NORMAL) Anisocytosis (manual) pCO2 37 (35-45) mm/Hg pO2 63 L (80-100) mm/Hg HCO3 23.6 (21-28) mmol/L ABG pH 7.40 (7.35-7.45) ABG Total CO2 24.0 (22-28) mmol/L ABG O2 Saturation 95.2 (95-98) % ABG O2 Content (15-23) ML/dL ABG Base Excess -1.5 (-2.0-3.0) mmol/L ABG Hemoglobin (11.7-17.4) g/dL ABG Carboxyhemoglobin (0.5-1.5) % POC ABG HHb (Measured) (0.0-5.0) % ABG Methemoglobin (0.0-3.0) % ABG O2 Capacity (16-24) mL/dL [place] Test Yes ABG Potassium 4.1 (3.6-5.2) mmol/L A-a O2 Difference 176.0 mm/Hg Hgb O2 Saturation (95.0-98.0) % Glucose 163 H (65-105) mg/dL Lactate 1.9 (0.7-2.1) mmol/L Liter Flow Vent Mode A/c Mechanical Rate 8 FiO2 40.0 % Tidal Volume 500 PEEP 5 Pressure Support Inspiratory BiPAP Blood Gas Comments Crit Value Called To Crit Value Called By Crit Value Read Back Blood Gas Notified Time Sodium 140.0 143 (132-148) mmol/l Potassium 4.3 (3.6-5.0) MMOL/L Chloride 111.0 H 113 H (98-107) mmol/L Carbon Dioxide 22 (22-30) mmol/L Anion Gap 12 (10-20) BUN 16 (7-17) mg/dl Creatinine 0.6 L (0.7-1.2) mg/dl Est GFR ( Amer) > 60 Est GFR (Non-Af Amer) > 60 POC Glucose (mg/dL) 148 H (65-110) mg/dL Random Glucose 159 H (65-105) mg/dL Calcium 9.1 (8.4-10.2) mg/dL Magnesium 2.2 (1.6-2.3) MG/DL Total Bilirubin 0.3 (0.2-1.3) mg/dl AST 35 (14-36) U/L ALT 46 (9-52) U/L Alkaline Phosphatase 148 H D (38-126) U/L Troponin I 0.0560 (0.00-0.120) ng/mL NT-Pro-B Natriuret Pep (0-900) pg/ml Total Protein 6.8 (6.3-8.2) G/DL Albumin 3.7 (3.5-5.0) g/dL Globulin 3.2 (2.2-3.9) gm/dL Albumin/Globulin Ratio 1.2 (1.0-2.1) Arterial Blood Potassium 4.1 (3.6-5.2) mmol/L Urine Color (YELLOW) Urine Clarity (Clear) Urine pH (5.0-8.0) Ur Specific [place] (1.003-1.030) Urine Protein (NEGATIVE) mg/dL Urine Glucose (UA) (Normal) mg/dL Urine Ketones (NEGATIVE) mg/dL Urine Blood (NEGATIVE) Urine Nitrate (NEGATIVE) Urine Bilirubin (NEGATIVE) Urine Urobilinogen (0.2-1.0) mg/dL Ur Leukocyte Esterase (Negative) Ang[place]lica/uL Urine RBC (Auto) (0-3) /hpf Urine Microscopic WBC (0-5) /hpf Ur Squamous Epith Cells (0-5) /hpf Urine Bacteria (<OCC) Hyaline Casts (0-2) /hpf Influenza Typ A,B (EIA) (NEGATIVE) 04/28/18 04/27/18 04/27/18 Range/Units 04:31 21:14 21:01 WBC 10.6 (4.8-10.8) K/uL RBC 4.64 (3.80-5.20) Mil/uL Hgb 12.5 (12.0-16.0) g/dL Hct 38.1 (34.0-47.0) % MCV 82.2 (81.0-99.0) fl MCH 26.8 L (27.0-31.0) pg MCHC 32.7 L (33.0-37.0) g/dL RDW 13.7 (11.5-14.5) % Plt Count 208 D (130-400) K/uL MPV 9.4 (7.2-11.7) fl Neut % (Auto) 90.8 H (50.0-75.0) % Lymph % (Auto) 8.0 L (20.0-40.0) % [place] % (Auto) 1.1 (0.0-10.0) % Eos % (Auto) 0.0 (0.0-4.0) % Baso % (Auto) 0.1 (0.0-2.0) % Neut # (Auto) 9.6 H (1.8-7.0) K/uL Lymph # (Auto) 0.8 L (1.0-4.3) K/uL [place] # (Auto) 0.1 (0.0-0.8) K/uL Eos # (Auto) 0.0 (0.0-0.7) K/uL Baso # (Auto) 0.0 (0.0-0.2) K/uL Neutrophils % (Manual) 90 H (42-75) % Lymphocytes % (Manual) 9 L (20-50) % Monocytes % (Manual) 1 (0-10) % Platelet Estimate Normal (NORMAL) Anisocytosis (manual) Slight pCO2 (35-45) mm/Hg pO2 (80-100) mm/Hg HCO3 (21-28) mmol/L ABG pH (7.35-7.45) ABG Total CO2 (22-28) mmol/L ABG O2 Saturation (95-98) % ABG O2 Content (15-23) ML/dL ABG Base Excess (-2.0-3.0) mmol/L ABG Hemoglobin (11.7-17.4) g/dL ABG Carboxyhemoglobin (0.5-1.5) % POC ABG HHb (Measured) (0.0-5.0) % ABG Methemoglobin (0.0-3.0) % ABG O2 Capacity (16-24) mL/dL [place] Test ABG Potassium (3.6-5.2) mmol/L A-a O2 Difference mm/Hg Hgb O2 Saturation (95.0-98.0) % Glucose (65-105) mg/dL Lactate (0.7-2.1) mmol/L Liter Flow Vent Mode Mechanical Rate FiO2 % Tidal Volume PEEP Pressure Support Inspiratory BiPAP Blood Gas Comments Crit Value Called To Crit Value Called By Crit Value Read Back Blood Gas Notified Time Sodium (132-148) mmol/l Potassium (3.6-5.0) MMOL/L Chloride (98-107) mmol/L Carbon Dioxide (22-30) mmol/L Anion Gap (10-20) BUN (7-17) mg/dl Creatinine (0.7-1.2) mg/dl Est GFR ( Amer) Est GFR (Non-Af Amer) POC Glucose (mg/dL) 159 H (65-110) mg/dL Random Glucose (65-105) mg/dL Calcium (8.4-10.2) mg/dL Magnesium (1.6-2.3) MG/DL Total Bilirubin (0.2-1.3) mg/dl AST (14-36) U/L ALT (9-52) U/L Alkaline Phosphatase (38-126) U/L Troponin I 0.0620 (0.00-0.120) ng/mL NT-Pro-B Natriuret Pep (0-900) pg/ml Total Protein (6.3-8.2) G/DL Albumin (3.5-5.0) g/dL Globulin (2.2-3.9) gm/dL Albumin/Globulin Ratio (1.0-2.1) Arterial Blood Potassium (3.6-5.2) mmol/L Urine Color (YELLOW) Urine Clarity (Clear) Urine pH (5.0-8.0) Ur Specific [place] (1.003-1.030) Urine Protein (NEGATIVE) mg/dL Urine Glucose (UA) (Normal) mg/dL Urine Ketones (NEGATIVE) mg/dL Urine Blood (NEGATIVE) Urine Nitrate (NEGATIVE) Urine Bilirubin (NEGATIVE) Urine Urobilinogen (0.2-1.0) mg/dL Ur Leukocyte Esterase (Negative) Ang[place]/uL Urine RBC (Auto) (0-3) /hpf Urine Microscopic WBC (0-5) /hpf Ur Squamous Epith Cells (0-5) /hpf Urine Bacteria (<OCC) Hyaline Casts (0-2) /hpf Influenza Typ A,B (EIA) (NEGATIVE) 04/27/18 04/27/18 04/27/18 Range/Units 16:49 14:18 13:00 WBC (4.8-10.8) K/uL RBC (3.80-5.20) Mil/uL Hgb (12.0-16.0) g/dL Hct (34.0-47.0) % MCV (81.0-99.0) fl MCH (27.0-31.0) pg MCHC (33.0-37.0) g/dL RDW (11.5-14.5) % Plt Count (130-400) K/uL MPV (7.2-11.7) fl Neut % (Auto) (50.0-75.0) % Lymph % (Auto) (20.0-40.0) % [place] % (Auto) (0.0-10.0) % Eos % (Auto) (0.0-4.0) % Baso % (Auto) (0.0-2.0) % Neut # (Auto) (1.8-7.0) K/uL Lymph # (Auto) (1.0-4.3) K/uL [place] # (Auto) (0.0-0.8) K/uL Eos # (Auto) (0.0-0.7) K/uL Baso # (Auto) (0.0-0.2) K/uL Neutrophils % (Manual) (42-75) % Lymphocytes % (Manual) (20-50) % Monocytes % (Manual) (0-10) % Platelet Estimate (NORMAL) Anisocytosis (manual) pCO2 (35-45) mm/Hg pO2 (80-100) mm/Hg HCO3 (21-28) mmol/L ABG pH (7.35-7.45) ABG Total CO2 (22-28) mmol/L ABG O2 Saturation (95-98) % ABG O2 Content (15-23) ML/dL ABG Base Excess (-2.0-3.0) mmol/L ABG Hemoglobin (11.7-17.4) g/dL ABG Carboxyhemoglobin (0.5-1.5) % POC ABG HHb (Measured) (0.0-5.0) % ABG Methemoglobin (0.0-3.0) % ABG O2 Capacity (16-24) mL/dL [place] Test ABG Potassium (3.6-5.2) mmol/L A-a O2 Difference mm/Hg Hgb O2 Saturation (95.0-98.0) % Glucose (65-105) mg/dL Lactate (0.7-2.1) mmol/L Liter Flow Vent Mode Mechanical Rate FiO2 % Tidal Volume PEEP Pressure Support Inspiratory BiPAP Blood Gas Comments Crit Value Called To Crit Value Called By Crit Value Read Back Blood Gas Notified Time Sodium (132-148) mmol/l Potassium (3.6-5.0) MMOL/L Chloride (98-107) mmol/L Carbon Dioxide (22-30) mmol/L Anion Gap (10-20) BUN (7-17) mg/dl Creatinine (0.7-1.2) mg/dl Est GFR ( Amer) Est GFR (Non-Af Amer) POC Glucose (mg/dL) 144 H (65-110) mg/dL Random Glucose (65-105) mg/dL Calcium (8.4-10.2) mg/dL Magnesium (1.6-2.3) MG/DL Total Bilirubin (0.2-1.3) mg/dl AST (14-36) U/L ALT (9-52) U/L Alkaline Phosphatase (38-126) U/L Troponin I (0.00-0.120) ng/mL NT-Pro-B Natriuret Pep (0-900) pg/ml Total Protein (6.3-8.2) G/DL Albumin (3.5-5.0) g/dL Globulin (2.2-3.9) gm/dL Albumin/Globulin Ratio (1.0-2.1) Arterial Blood Potassium (3.6-5.2) mmol/L Urine Color Yellow (YELLOW) Urine Clarity Cloudy (Clear) Urine pH 5.0 (5.0-8.0) Ur Specific [place] 1.023 (1.003-1.030) Urine Protein 100 (NEGATIVE) mg/dL Urine Glucose (UA) Neg (Normal) mg/dL Urine Ketones Negative (NEGATIVE) mg/dL Urine Blood Negative (NEGATIVE) Urine Nitrate Negative (NEGATIVE) Urine Bilirubin Negative (NEGATIVE) Urine Urobilinogen 0.2-1.0 (0.2-1.0) mg/dL Ur Leukocyte Esterase Neg (Negative) Ang[place]/uL Urine RBC (Auto) 3 (0-3) /hpf Urine Microscopic WBC 3 (0-5) /hpf Ur Squamous Epith Cells 2 (0-5) /hpf Urine Bacteria Rare (<OCC) Hyaline Casts >20 H (0-2) /hpf Influenza Typ A,B (EIA) Negative for flu a/b (NEGATIVE) 04/27/18 04/27/18 04/27/18 Range/Units 13:00 13:00 12:59 WBC 11.5 H (4.8-10.8) K/uL RBC 5.20 (3.80-5.20) Mil/uL Hgb 14.0 (12.0-16.0) g/dL Hct 43.1 (34.0-47.0) % MCV 82.9 (81.0-99.0) fl MCH 26.9 L (27.0-31.0) pg MCHC 32.5 L (33.0-37.0) g/dL RDW 13.7 (11.5-14.5) % Plt Count 313 D (130-400) K/uL MPV 9.4 (7.2-11.7) fl Neut % (Auto) 52.6 (50.0-75.0) % Lymph % (Auto) 34.1 (20.0-40.0) % [place] % (Auto) 9.1 (0.0-10.0) % Eos % (Auto) 3.5 (0.0-4.0) % Baso % (Auto) 0.7 (0.0-2.0) % Neut # (Auto) 6.0 (1.8-7.0) K/uL Lymph # (Auto) 3.9 (1.0-4.3) K/uL [place] # (Auto) 1.0 H (0.0-0.8) K/uL Eos # (Auto) 0.4 (0.0-0.7) K/uL Baso # (Auto) 0.1 (0.0-0.2) K/uL Neutrophils % (Manual) (42-75) % Lymphocytes % (Manual) (20-50) % Monocytes % (Manual) (0-10) % Platelet Estimate (NORMAL) Anisocytosis (manual) pCO2 37 (35-45) mm/Hg pO2 494 H (80-100) mm/Hg HCO3 20.3 L (21-28) mmol/L ABG pH 7.33 L (7.35-7.45) ABG Total CO2 20.6 L (22-28) mmol/L ABG O2 Saturation 99.5 H (95-98) % ABG O2 Content 21.2 (15-23) ML/dL ABG Base Excess -5.8 L (-2.0-3.0) mmol/L ABG Hemoglobin 14.8 (11.7-17.4) g/dL ABG Carboxyhemoglobin 1.2 (0.5-1.5) % POC ABG HHb (Measured) 0.5 (0.0-5.0) % ABG Methemoglobin 2.8 (0.0-3.0) % ABG O2 Capacity 21.3 (16-24) mL/dL [place] Test Yes ABG Potassium (3.6-5.2) mmol/L A-a O2 Difference 173.0 mm/Hg Hgb O2 Saturation 95.5 (95.0-98.0) % Glucose (65-105) mg/dL Lactate (0.7-2.1) mmol/L Liter Flow 12 Vent Mode Mechanical Rate FiO2 100.0 % Tidal Volume PEEP Pressure Support 5 Inspiratory BiPAP [address] jackson bruce Crit Value Called To Dr jackson sánchez Crit Value Called By 15 Crit Value Read Back Y Blood Gas Notified Time 1303 Sodium 141 (132-148) mmol/l Potassium 4.0 (3.6-5.0) MMOL/L Chloride 107 (98-107) mmol/L Carbon Dioxide 19 L (22-30) mmol/L Anion Gap 19 (10-20) BUN 17 (7-17) mg/dl Creatinine 0.9 (0.7-1.2) mg/dl Est GFR ( Amer) > 60 Est GFR (Non-Af Amer) > 60 POC Glucose (mg/dL) (65-110) mg/dL Random Glucose 140 H (65-105) mg/dL Calcium 9.8 (8.4-10.2) mg/dL Magnesium (1.6-2.3) MG/DL Total Bilirubin 0.4 (0.2-1.3) mg/dl AST 33 (14-36) U/L ALT 27 (9-52) U/L Alkaline Phosphatase 199 H D (38-126) U/L Troponin I < 0.0120 (0.00-0.120) ng/mL NT-Pro-B Natriuret Pep 144 (0-900) pg/ml Total Protein 8.2 (6.3-8.2) G/DL Albumin 4.5 (3.5-5.0) g/dL Globulin 3.7 (2.2-3.9) gm/dL Albumin/Globulin Ratio 1.2 (1.0-2.1) Arterial Blood Potassium (3.6-5.2) mmol/L Urine Color (YELLOW) Urine Clarity (Clear) Urine pH (5.0-8.0) Ur Specific [place] (1.003-1.030) Urine Protein (NEGATIVE) mg/dL Urine Glucose (UA) (Normal) mg/dL Urine Ketones (NEGATIVE) mg/dL Urine Blood (NEGATIVE) Urine Nitrate (NEGATIVE) Urine Bilirubin (NEGATIVE) Urine Urobilinogen (0.2-1.0) mg/dL Ur Leukocyte Esterase (Negative) Ang[place]lic[place]/uL Urine RBC (Auto) (0-3) /hpf Urine Microscopic WBC (0-5) /hpf Ur Squamous Epith Cells (0-5) /hpf Urine Bacteria (<OCC) Hyaline Casts (0-2) /hpf Influenza Typ A,B (EIA) (NEGATIVE) 04/27/18 Range/Units 12:52 WBC (4.8-10.8) K/uL RBC (3.80-5.20) Mil/uL Hgb (12.0-16.0) g/dL Hct (34.0-47.0) % MCV (81.0-99.0) fl MCH (27.0-31.0) pg MCHC (33.0-37.0) g/dL RDW (11.5-14.5) % Plt Count (130-400) K/uL MPV (7.2-11.7) fl Neut % (Auto) (50.0-75.0) % Lymph % (Auto) (20.0-40.0) % [place] % (Auto) (0.0-10.0) % Eos % (Auto) (0.0-4.0) % Baso % (Auto) (0.0-2.0) % Neut # (Auto) (1.8-7.0) K/uL Lymph # (Auto) (1.0-4.3) K/uL [place] # (Auto) (0.0-0.8) K/uL Eos # (Auto) (0.0-0.7) K/uL Baso # (Auto) (0.0-0.2) K/uL Neutrophils % (Manual) (42-75) % Lymphocytes % (Manual) (20-50) % Monocytes % (Manual) (0-10) % Platelet Estimate (NORMAL) Anisocytosis (manual) pCO2 (35-45) mm/Hg pO2 (80-100) mm/Hg HCO3 (21-28) mmol/L ABG pH (7.35-7.45) ABG Total CO2 (22-28) mmol/L ABG O2 Saturation (95-98) % ABG O2 Content (15-23) ML/dL ABG Base Excess (-2.0-3.0) mmol/L ABG Hemoglobin (11.7-17.4) g/dL ABG Carboxyhemoglobin (0.5-1.5) % POC ABG HHb (Measured) (0.0-5.0) % ABG Methemoglobin (0.0-3.0) % ABG O2 Capacity (16-24) mL/dL [place] Test ABG Potassium (3.6-5.2) mmol/L A-a O2 Difference mm/Hg Hgb O2 Saturation (95.0-98.0) % Glucose (65-105) mg/dL Lactate (0.7-2.1) mmol/L Liter Flow Vent Mode Mechanical Rate FiO2 % Tidal Volume PEEP Pressure Support Inspiratory BiPAP Blood Gas Comments Crit Value Called To Crit Value Called By Crit Value Read Back Blood Gas Notified Time Sodium (132-148) mmol/l Potassium (3.6-5.0) MMOL/L Chloride (98-107) mmol/L Carbon Dioxide (22-30) mmol/L Anion Gap (10-20) BUN (7-17) mg/dl Creatinine (0.7-1.2) mg/dl Est GFR ( Amer) Est GFR (Non-Af Amer) POC Glucose (mg/dL) 124 H (65-110) mg/dL Random Glucose (65-105) mg/dL Calcium (8.4-10.2) mg/dL Magnesium (1.6-2.3) MG/DL Total Bilirubin (0.2-1.3) mg/dl AST (14-36) U/L ALT (9-52) U/L Alkaline Phosphatase (38-126) U/L Troponin I (0.00-0.120) ng/mL NT-Pro-B Natriuret Pep (0-900) pg/ml Total Protein (6.3-8.2) G/DL Albumin (3.5-5.0) g/dL Globulin (2.2-3.9) gm/dL Albumin/Globulin Ratio (1.0-2.1) Arterial Blood Potassium (3.6-5.2) mmol/L Urine Color (YELLOW) Urine Clarity (Clear) Urine pH (5.0-8.0) Ur Specific [place] (1.003-1.030) Urine Protein (NEGATIVE) mg/dL Urine Glucose (UA) (Normal) mg/dL Urine Ketones (NEGATIVE) mg/dL Urine Blood (NEGATIVE) Urine Nitrate (NEGATIVE) Urine Bilirubin (NEGATIVE) Urine Urobilinogen (0.2-1.0) mg/dL Ur Leukocyte Esterase (Negative) Ang[place]lic[place]/uL Urine RBC (Auto) (0-3) /hpf Urine Microscopic WBC (0-5) /hpf Ur Squamous Epith Cells (0-5) /hpf Urine Bacteria (<OCC) Hyaline Casts (0-2) /hpf Influenza Typ A,B (EIA) (NEGATIVE) Laboratory Results - last 24 hr 04/27/18 04/27/18 04/27/18 12:52 12:59 13:00 WBC RBC Hgb Hct MCV MCH MCHC RDW Plt Count MPV Neut % (Auto) Lymph % (Auto) [place] % (Auto) Eos % (Auto) Baso % (Auto) Neut # (Auto) Lymph # (Auto) [place] # (Auto) Eos # (Auto) Baso # (Auto) Neutrophils % (Manual) Lymphocytes % (Manual) Monocytes % (Manual) Platelet Estimate Anisocytosis (manual) pCO2 37 pO2 494 H HCO3 20.3 L ABG pH 7.33 L ABG Total CO2 20.6 L ABG O2 Saturation 99.5 H ABG O2 Content 21.2 ABG Base Excess -5.8 L ABG Hemoglobin 14.8 ABG Carboxyhemoglobin 1.2 POC ABG HHb (Measured) 0.5 ABG Methemoglobin 2.8 ABG O2 Capacity 21.3 [place] Test Yes ABG Potassium A-a O2 Difference 173.0 Hgb O2 Saturation 95.5 Glucose Lactate Liter Flow 12 Vent Mode Mechanical Rate FiO2 100.0 Tidal Volume PEEP Pressure Support 5 Inspiratory BiPAP [address] jackson bruce Crit Value Called To Dr jackson sánchez Crit Value Called By 15 Crit Value Read Back Y Blood Gas Notified Time 1303 Sodium 141 Potassium 4.0 Chloride 107 Carbon Dioxide 19 L Anion Gap 19 BUN 17 Creatinine 0.9 Est GFR ( Amer) > 60 Est GFR (Non-Af Amer) > 60 POC Glucose (mg/dL) 124 H Random Glucose 140 H Calcium 9.8 Magnesium Total Bilirubin 0.4 AST 33 ALT 27 Alkaline Phosphatase 199 H D Troponin I < 0.0120 NT-Pro-B Natriuret Pep 144 Total Protein 8.2 Albumin 4.5 Globulin 3.7 Albumin/Globulin Ratio 1.2 Arterial Blood Potassium Urine Color Urine Clarity Urine pH Ur Specific [place] Urine Protein Urine Glucose (UA) Urine Ketones Urine Blood Urine Nitrate Urine Bilirubin Urine Urobilinogen Ur Leukocyte Esterase Urine RBC (Auto) Urine Microscopic WBC Ur Squamous Epith Cells Urine Bacteria Hyaline Casts Influenza Typ A,B (EIA) 04/27/18 04/27/18 04/27/18 13:00 13:00 14:18 WBC 11.5 H RBC 5.20 Hgb 14.0 Hct 43.1 MCV 82.9 MCH 26.9 L MCHC 32.5 L RDW 13.7 Plt Count 313 D MPV 9.4 Neut % (Auto) 52.6 Lymph % (Auto) 34.1 [place] % (Auto) 9.1 Eos % (Auto) 3.5 Baso % (Auto) 0.7 Neut # (Auto) 6.0 Lymph # (Auto) 3.9 [place] # (Auto) 1.0 H Eos # (Auto) 0.4 Baso # (Auto) 0.1 Neutrophils % (Manual) Lymphocytes % (Manual) Monocytes % (Manual) Platelet Estimate Anisocytosis (manual) pCO2 pO2 HCO3 ABG pH ABG Total CO2 ABG O2 Saturation ABG O2 Content ABG Base Excess ABG Hemoglobin ABG Carboxyhemoglobin POC ABG HHb (Measured) ABG Methemoglobin ABG O2 Capacity [place] Test ABG Potassium A-a O2 Difference Hgb O2 Saturation Glucose Lactate Liter Flow Vent Mode Mechanical Rate FiO2 Tidal Volume PEEP Pressure Support Inspiratory BiPAP Blood Gas Comments Crit Value Called To Crit Value Called By Crit Value Read Back Blood Gas Notified Time Sodium Potassium Chloride Carbon Dioxide Anion Gap BUN Creatinine Est GFR ( Amer) Est GFR (Non-Af Amer) POC Glucose (mg/dL) Random Glucose Calcium Magnesium Total Bilirubin AST ALT Alkaline Phosphatase Troponin I NT-Pro-B Natriuret Pep Total Protein Albumin Globulin Albumin/Globulin Ratio Arterial Blood Potassium Urine Color Yellow Urine Clarity Cloudy Urine pH 5.0 Ur Specific [place] 1.023 Urine Protein 100 Urine Glucose (UA) Neg Urine Ketones Negative Urine Blood Negative Urine Nitrate Negative Urine Bilirubin Negative Urine Urobilinogen 0.2-1.0 Ur Leukocyte Esterase Neg Urine RBC (Auto) 3 Urine Microscopic WBC 3 Ur Squamous Epith Cells 2 Urine Bacteria Rare Hyaline Casts >20 H Influenza Typ A,B (EIA) Negative for flu a/b 04/27/18 04/27/18 04/27/18 16:49 21:01 21:14 WBC RBC Hgb Hct MCV MCH MCHC RDW Plt Count MPV Neut % (Auto) Lymph % (Auto) [place] % (Auto) Eos % (Auto) Baso % (Auto) Neut # (Auto) Lymph # (Auto) [place] # (Auto) Eos # (Auto) Baso # (Auto) Neutrophils % (Manual) Lymphocytes % (Manual) Monocytes % (Manual) Platelet Estimate Anisocytosis (manual) pCO2 pO2 HCO3 ABG pH ABG Total CO2 ABG O2 Saturation ABG O2 Content ABG Base Excess ABG Hemoglobin ABG Carboxyhemoglobin POC ABG HHb (Measured) ABG Methemoglobin ABG O2 Capacity [place] Test ABG Potassium A-a O2 Difference Hgb O2 Saturation Glucose Lactate Liter Flow Vent Mode Mechanical Rate FiO2 Tidal Volume PEEP Pressure Support Inspiratory BiPAP Blood Gas Comments Crit Value Called To Crit Value Called By Crit Value Read Back Blood Gas Notified Time Sodium Potassium Chloride Carbon Dioxide Anion Gap BUN Creatinine Est GFR ( Amer) Est GFR (Non-Af Amer) POC Glucose (mg/dL) 144 H 159 H Random Glucose Calcium Magnesium Total Bilirubin AST ALT Alkaline Phosphatase Troponin I 0.0620 NT-Pro-B Natriuret Pep Total Protein Albumin Globulin Albumin/Globulin Ratio Arterial Blood Potassium Urine Color Urine Clarity Urine pH Ur Specific [place] Urine Protein Urine Glucose (UA) Urine Ketones Urine Blood Urine Nitrate Urine Bilirubin Urine Urobilinogen Ur Leukocyte Esterase Urine RBC (Auto) Urine Microscopic WBC Ur Squamous Epith Cells Urine Bacteria Hyaline Casts Influenza Typ A,B (EIA) 04/28/18 04/28/18 04/28/18 04:31 04:31 05:29 WBC 10.6 RBC 4.64 Hgb 12.5 Hct 38.1 MCV 82.2 MCH 26.8 L MCHC 32.7 L RDW 13.7 Plt Count 208 D MPV 9.4 Neut % (Auto) 90.8 H Lymph % (Auto) 8.0 L [place] % (Auto) 1.1 Eos % (Auto) 0.0 Baso % (Auto) 0.1 Neut # (Auto) 9.6 H Lymph # (Auto) 0.8 L [place] # (Auto) 0.1 Eos # (Auto) 0.0 Baso # (Auto) 0.0 Neutrophils % (Manual) 90 H Lymphocytes % (Manual) 9 L Monocytes % (Manual) 1 Platelet Estimate Normal Anisocytosis (manual) Slight pCO2 37 pO2 63 L HCO3 23.6 ABG pH 7.40 ABG Total CO2 24.0 ABG O2 Saturation 95.2 ABG O2 Content ABG Base Excess -1.5 ABG Hemoglobin ABG Carboxyhemoglobin POC ABG HHb (Measured) ABG Methemoglobin ABG O2 Capacity [place] Test Yes ABG Potassium 4.1 A-a O2 Difference 176.0 Hgb O2 Saturation Glucose 163 H Lactate 1.9 Liter Flow Vent Mode A/c Mechanical Rate 8 FiO2 40.0 Tidal Volume 500 PEEP 5 Pressure Support Inspiratory BiPAP Blood Gas Comments Crit Value Called To Crit Value Called By Crit Value Read Back Blood Gas Notified Time Sodium 143 140.0 Potassium 4.3 Chloride 113 H 111.0 H Carbon Dioxide 22 Anion Gap 12 BUN 16 Creatinine 0.6 L Est GFR ( Amer) > 60 Est GFR (Non-Af Amer) > 60 POC Glucose (mg/dL) Random Glucose 159 H Calcium 9.1 Magnesium 2.2 Total Bilirubin 0.3 AST 35 ALT 46 Alkaline Phosphatase 148 H D Troponin I 0.0560 NT-Pro-B Natriuret Pep Total Protein 6.8 Albumin 3.7 Globulin 3.2 Albumin/Globulin Ratio 1.2 Arterial Blood Potassium 4.1 Urine Color Urine Clarity Urine pH Ur Specific [place] Urine Protein Urine Glucose (UA) Urine Ketones Urine Blood Urine Nitrate Urine Bilirubin Urine Urobilinogen Ur Leukocyte Esterase Urine RBC (Auto) Urine Microscopic WBC Ur Squamous Epith Cells Urine Bacteria Hyaline Casts Influenza Typ A,B (EIA) 04/28/18 06:02 WBC RBC Hgb Hct MCV MCH MCHC RDW Plt Count MPV Neut % (Auto) Lymph % (Auto) [place] % (Auto) Eos % (Auto) Baso % (Auto) Neut # (Auto) Lymph # (Auto) [place] # (Auto) Eos # (Auto) Baso # (Auto) Neutrophils % (Manual) Lymphocytes % (Manual) Monocytes % (Manual) Platelet Estimate Anisocytosis (manual) pCO2 pO2 HCO3 ABG pH ABG Total CO2 ABG O2 Saturation ABG O2 Content ABG Base Excess ABG Hemoglobin ABG Carboxyhemoglobin POC ABG HHb (Measured) ABG Methemoglobin ABG O2 Capacity [place] Test ABG Potassium A-a O2 Difference Hgb O2 Saturation Glucose Lactate Liter Flow Vent Mode Mechanical Rate FiO2 Tidal Volume PEEP Pressure Support Inspiratory BiPAP Blood Gas Comments Crit Value Called To Crit Value Called By Crit Value Read Back Blood Gas Notified Time Sodium Potassium Chloride Carbon Dioxide Anion Gap BUN Creatinine Est GFR ( Amer) Est GFR (Non-Af Amer) POC Glucose (mg/dL) 148 H Random Glucose Calcium Magnesium Total Bilirubin AST ALT Alkaline Phosphatase Troponin I NT-Pro-B Natriuret Pep Total Protein Albumin Globulin Albumin/Globulin Ratio Arterial Blood Potassium Urine Color Urine Clarity Urine pH Ur Specific [place] Urine Protein Urine Glucose (UA) Urine Ketones Urine Blood Urine Nitrate Urine Bilirubin Urine Urobilinogen Ur Leukocyte Esterase Urine RBC (Auto) Urine Microscopic WBC Ur Squamous Epith Cells Urine Bacteria Hyaline Casts Influenza Typ A,B (EIA) Fingerstick Blood Sugar Results: 148 Critical Care Progress Note - Nutrition Nutrition: Nutrition Category Date Time Status NPO Diet [DIET] Diets 04/27/18 Breakfast Active Assessment/Plan - Assessment and Plan (Free Text) Assessment: IMPRESSION / MAJOR PROBLEMS NOW: 1. Acute Resp Insuff 2 Status Asthmaticus/COPD, PCO2 is better but still in 60s 2. r/o Pneumonia versus tracheobronchitis 3. Chronic Opioid use 4. Obesity PLAN: 1. Steroids, and Duoneb inh via ETT now. 2- Vent setting changed from AC to , will monitor 3. IV Steroids, Q4-6H Albuterol/Ipatrop, empiric Abx coverage for CAP organisms. 4. On high dose narcotic analgesics to anxiolytics, if she requires continued MV support. c/o knee pain, her tolerance to narcotic can delay her extubation. 5. DC IVF 6- Started IV hydralazine for high BP
--- NOTE | 2018-04-28 14:39 | RAD ---
Date of service: 04/28/2018 HISTORY: Knee pain COMPARISON: None available. FINDINGS: BONES: Osteopenia. No fracture. JOINTS: Severe medial compartment osteoarthritis with part mental narrowing marginal spur formation. SOFT TISSUE: Normal. OTHER FINDINGS: None . IMPRESSION: No fracture. Degenerative changes.
--- NOTE | 2018-04-28 14:39 | RAD ---
Date of service: 04/28/2018 PROCEDURE: CHEST RADIOGRAPH, 1 VIEW HISTORY: SOB COMPARISON: None available. FINDINGS: LUNGS: Clear. PLEURA: No pneumothorax or pleural fluid seen. CARDIOVASCULAR: Normal. OSSEOUS STRUCTURES: No significant abnormalities. VISUALIZED UPPER ABDOMEN: Normal. OTHER FINDINGS: ETT above the willie. IMPRESSION: No active disease.
[2018-04-28 19:10] LABS: ABG ALLEN TEST YES; ARTERIAL BLOOD GAS HCO3 24.8 mmol/L (21-28); ARTERIAL BLOOD GAS HEMOGLOBIN 11.5 g/dL (11.7-17.4); ARTERIAL BLOOD GAS O2 CAPACITY 15.4 mL/dL (16-24); ARTERIAL BLOOD GAS O2 SAT 97.7 % (95-98); ARTERIAL BLOOD GAS PCO2 35 mm/Hg (35-45); ARTERIAL BLOOD GAS PH 7.44 (7.35-7.45); ARTERIAL BLOOD GAS PO2 60 mm/Hg (80-100); ARTERIAL BLOOD GAS TCO2 24.9 mmol/L (22-28)
[2018-04-28] MEDS ORDERED: Dextrose 5%/0.45% NS 1,000 ML IV SCH (21:15)
[2018-04-29] MEDS: Aztreonam 2 GM in Sodium Chloride 0.9% 100 ML IVPB SCH ×3 (00:39→16:03)
[2018-04-29] MEDS: Propofol 10 mg/ml 1,000 MG/100 ML VIAL IV SCH ×2 (01:07→04:56)
[2018-04-29] MEDS: MethylPREDNISolone 40 mg Vial IVP SCH ×4 (04:09→22:14)
[2018-04-29] MEDS: Albuterol-Ipratrop 3 mg / 0.5 (3 ml) UD INH SCH ×5 (05:16→19:10)
[2018-04-29 05:47] LABS: HEMOGLOBIN 11.8 g/dL (12.0-16.0); MEAN CELL VOLUME 82.8 fl (81.0-99.0); MEAN CORPUSCULAR HEMOGLOBIN 26.1 pg (27.0-31.0); MEAN CORPUSCULAR HGB CONC 31.6 g/dL (33.0-37.0); RBC 4.53 Mil/uL (3.80-5.20); RED CELL DISTRIBUTION WIDTH 14.5 % (11.5-14.5); WHITE BLOOD COUNT 15.6 K/uL (4.8-10.8)
[2018-04-29 07:05] LABS: BLOOD UREA NITROGEN 18 mg/dl (7-17); CALCIUM 8.4 mg/dL (8.4-10.2); GFR NON-AFRICAN AMERICAN > 60
[2018-04-29] MEDS: Morphine 4 MG/ML VIAL IVP PRN (07:27)
--- NOTE | 2018-04-29 08:47 | RAD ---
Date of service: 04/29/2018 HISTORY: vented COMPARISON: No prior. FINDINGS: LUNGS: Bilateral interstitial infiltrates. PLEURA: No significant pleural effusion identified, no pneumothorax apparent. CARDIOVASCULAR: No aortic atherosclerotic calcification present. Normal cardiac size. No pulmonary vascular congestion. OSSEOUS STRUCTURES: No significant abnormalities. VISUALIZED UPPER ABDOMEN: Normal. OTHER FINDINGS: ETT above the willie. IMPRESSION: Bilateral interstitial infiltrates. ETT above the willie. No significant change.
[2018-04-29] MEDS: Enoxaparin 40 mg Syringe SC SCH (09:07)
[2018-04-29] MEDS: Azithromycin 500 MG in Sodium Chloride 0.9% 250 ML IVPB SCH (09:09)
--- NOTE | 2018-04-29 09:14 | CP.CCUPN ---
CCU Subjective - Physician Review Events Since Last Encounter (Free Text): 04/29/18 09:12 ALert and awake, on CPAP for almost an hour now and looks comfortable no tachypnea, CCU Objective - Vital Signs / Intake & Output Vital Signs (Last 4 hours): Vital Signs Pulse Resp BP Pulse Ox 04/29/18 07:00 89 15 137/77 100 04/29/18 06:00 89 11 L 136/77 100 04/29/18 05:30 98 H 23 150/88 100 Intake and Output (Last 8hrs): Intake & Output 04/28/18 04/29/18 04/29/18 23:59 06:59 14:59 Intake Total Output Total Balance Weight Intake: IV Output: Urine Urethral (Gallardo) - Physical Exam Narrative Physical Exam (Free Text): 04/29/18 09:12 P/E Neck: No JVd Lungs: few scattered ronchi, bilaterally, Heart: No gallop Abdomen: soft, no tenderness ext: left knee chronic pain decrease ROM - Medications Active Medications: Active Medications Generic Name Dose Route Start Last Admin Trade Name Freq PRN Reason Stop Dose Admin Albuterol/Ipratropium 3 ml 04/27/18 16:00 04/29/18 07:57 Duoneb 3 Mg/0.5 Mg (3 Ml) Ud INH 3 ml RQ4 MILI Administration Enoxaparin Sodium 40 mg 04/28/18 09:00 04/29/18 09:07 Lovenox SC 40 mg DAILY MILI Administration Protocol Hydralazine HCl 10 mg 04/28/18 10:33 04/28/18 21:34 Apresoline IV 10 mg Q6 PRN Administration for SBP> 160 Sodium Chloride 1,000 mls @ 100 mls/hr 04/27/18 15:15 04/27/18 17:12 Sodium Chloride 0.9% IV 100 mls/hr .Q10H MILI Administration Azithromycin 500 mg/ Sodium 250 mls @ 250 mls/hr 04/27/18 15:45 04/29/18 09:09 Chloride IVPB 250 mls/hr DAILY MILI Administration Protocol Aztreonam 2 gm/ Sodium 100 mls @ 100 mls/hr 04/27/18 17:00 04/29/18 09:08 Chloride IVPB 100 mls/hr Q8 MILI Administration Protocol Dextrose/Sodium Chloride 1,000 mls @ 100 mls/hr 04/28/18 21:15 04/28/18 21:22 Dextrose 5%/0.45% Ns 1000 Ml IV 04/29/18 21:09 100 mls/hr .Q10H MILI Administration Propofol 1,000 mg in 100 mls @ 31.978 mls/hr 04/28/18 21:15 04/29/18 06:59 Diprivan IV 04/29/18 21:09 10 mcg/kg/min .Q3H8M MILI 6.396 mls/hr Titration Protocol 50 MCG/KG/MIN Ketorolac Tromethamine 30 mg 04/27/18 15:10 04/27/18 17:23 Toradol IVP 30 mg Q6H PRN Administration Pain, moderate (4-7) Lorazepam 2 mg 04/27/18 16:10 04/28/18 05:06 Ativan IVP 2 mg Q6 PRN Administration Agitation Methylprednisolone 40 mg 04/27/18 22:00 04/29/18 09:05 Solu-Medrol IVP 40 mg Q6 MILI Administration Morphine Sulfate 4 mg 04/28/18 03:00 04/29/18 07:27 Morphine IVP 4 mg Q2 PRN Administration Pain, moderate (4-7) Nicotine 1 patch 04/27/18 20:30 04/29/18 09:06 Nicoderm Cq TD 1 patch DAILY MILI Administration - Patient Studies Lab Studies: Microbiology Studies 04/27/18 13:00 Blood Culture - Preliminary Blood NO GROWTH AFTER 24 HOURS Lab Studies 04/29/18 04/29/18 04/28/18 Range/Units 05:30 05:30 21:01 WBC 15.6 H (4.8-10.8) K/uL RBC 4.53 (3.80-5.20) Mil/uL Hgb 11.8 L (12.0-16.0) g/dL Hct 37.5 (34.0-47.0) % MCV 82.8 (81.0-99.0) fl MCH 26.1 L (27.0-31.0) pg MCHC 31.6 L (33.0-37.0) g/dL RDW 14.5 (11.5-14.5) % Plt Count 222 (130-400) K/uL pCO2 (35-45) mm/Hg pO2 (80-100) mm/Hg HCO3 (21-28) mmol/L ABG pH (7.35-7.45) ABG Total CO2 (22-28) mmol/L ABG O2 Saturation (95-98) % ABG O2 Content (15-23) ML/dL ABG Base Excess (-2.0-3.0) mmol/L ABG Hemoglobin (11.7-17.4) g/dL ABG Carboxyhemoglobin (0.5-1.5) % POC ABG HHb (Measured) (0.0-5.0) % ABG Methemoglobin (0.0-3.0) % ABG O2 Capacity (16-24) mL/dL Preston Test A-a O2 Difference mm/Hg Hgb O2 Saturation (95.0-98.0) % Vent Mode FiO2 % PEEP Sodium 143 (132-148) mmol/l Potassium 4.2 (3.6-5.0) MMOL/L Chloride 112 H (98-107) mmol/L Carbon Dioxide 24 (22-30) mmol/L Anion Gap 11 (10-20) BUN 18 H (7-17) mg/dl Creatinine 0.6 L (0.7-1.2) mg/dl Est GFR ( Amer) > 60 Est GFR (Non-Af Amer) > 60 POC Glucose (mg/dL) 144 H (65-110) mg/dL Random Glucose 159 H (65-105) mg/dL Calcium 8.4 (8.4-10.2) mg/dL GGT (8-78) U/L 04/28/18 04/28/18 04/28/18 Range/Units 19:00 16:46 11:16 WBC (4.8-10.8) K/uL RBC (3.80-5.20) Mil/uL Hgb (12.0-16.0) g/dL Hct (34.0-47.0) % MCV (81.0-99.0) fl MCH (27.0-31.0) pg MCHC (33.0-37.0) g/dL RDW (11.5-14.5) % Plt Count (130-400) K/uL pCO2 35 (35-45) mm/Hg pO2 60 L (80-100) mm/Hg HCO3 24.8 (21-28) mmol/L ABG pH 7.44 (7.35-7.45) ABG Total CO2 24.9 (22-28) mmol/L ABG O2 Saturation 97.7 (95-98) % ABG O2 Content 15.0 (15-23) ML/dL ABG Base Excess 0 (-2.0-3.0) mmol/L ABG Hemoglobin 11.5 L (11.7-17.4) g/dL ABG Carboxyhemoglobin 3.6 H (0.5-1.5) % POC ABG HHb (Measured) 2.2 (0.0-5.0) % ABG Methemoglobin 1.7 (0.0-3.0) % ABG O2 Capacity 15.4 L (16-24) mL/dL Preston Test Yes A-a O2 Difference 181.0 mm/Hg Hgb O2 Saturation 92.5 L (95.0-98.0) % Vent Mode Cpap FiO2 40.0 % PEEP 5 Sodium (132-148) mmol/l Potassium (3.6-5.0) MMOL/L Chloride (98-107) mmol/L Carbon Dioxide (22-30) mmol/L Anion Gap (10-20) BUN (7-17) mg/dl Creatinine (0.7-1.2) mg/dl Est GFR ( Amer) Est GFR (Non-Af Amer) POC Glucose (mg/dL) 143 H 140 H (65-110) mg/dL Random Glucose (65-105) mg/dL Calcium (8.4-10.2) mg/dL GGT (8-78) U/L 04/27/18 Range/Units 19:07 WBC (4.8-10.8) K/uL RBC (3.80-5.20) Mil/uL Hgb (12.0-16.0) g/dL Hct (34.0-47.0) % MCV (81.0-99.0) fl MCH (27.0-31.0) pg MCHC (33.0-37.0) g/dL RDW (11.5-14.5) % Plt Count (130-400) K/uL pCO2 (35-45) mm/Hg pO2 (80-100) mm/Hg HCO3 (21-28) mmol/L ABG pH (7.35-7.45) ABG Total CO2 (22-28) mmol/L ABG O2 Saturation (95-98) % ABG O2 Content (15-23) ML/dL ABG Base Excess (-2.0-3.0) mmol/L ABG Hemoglobin (11.7-17.4) g/dL ABG Carboxyhemoglobin (0.5-1.5) % POC ABG HHb (Measured) (0.0-5.0) % ABG Methemoglobin (0.0-3.0) % ABG O2 Capacity (16-24) mL/dL Preston Test A-a O2 Difference mm/Hg Hgb O2 Saturation (95.0-98.0) % Vent Mode FiO2 % PEEP Sodium (132-148) mmol/l Potassium (3.6-5.0) MMOL/L Chloride (98-107) mmol/L Carbon Dioxide (22-30) mmol/L Anion Gap (10-20) BUN (7-17) mg/dl Creatinine (0.7-1.2) mg/dl Est GFR ( Amer) Est GFR (Non-Af Amer) POC Glucose (mg/dL) (65-110) mg/dL Random Glucose (65-105) mg/dL Calcium (8.4-10.2) mg/dL GGT 27 (8-78) U/L Laboratory Results - last 24 hr 04/27/18 04/28/18 04/28/18 19:07 11:16 16:46 WBC RBC Hgb Hct MCV MCH MCHC RDW Plt Count pCO2 pO2 HCO3 ABG pH ABG Total CO2 ABG O2 Saturation ABG O2 Content ABG Base Excess ABG Hemoglobin ABG Carboxyhemoglobin POC ABG HHb (Measured) ABG Methemoglobin ABG O2 Capacity Preston Test A-a O2 Difference Hgb O2 Saturation Vent Mode FiO2 PEEP Sodium Potassium Chloride Carbon Dioxide Anion Gap BUN Creatinine Est GFR ( Amer) Est GFR (Non-Af Amer) POC Glucose (mg/dL) 140 H 143 H Random Glucose Calcium GGT 27 04/28/18 04/28/18 04/29/18 19:00 21:01 05:30 WBC 15.6 H RBC 4.53 Hgb 11.8 L Hct 37.5 MCV 82.8 MCH 26.1 L MCHC 31.6 L RDW 14.5 Plt Count 222 pCO2 35 pO2 60 L HCO3 24.8 ABG pH 7.44 ABG Total CO2 24.9 ABG O2 Saturation 97.7 ABG O2 Content 15.0 ABG Base Excess 0 ABG Hemoglobin 11.5 L ABG Carboxyhemoglobin 3.6 H POC ABG HHb (Measured) 2.2 ABG Methemoglobin 1.7 ABG O2 Capacity 15.4 L Preston Test Yes A-a O2 Difference 181.0 Hgb O2 Saturation 92.5 L Vent Mode Cpap FiO2 40.0 PEEP 5 Sodium Potassium Chloride Carbon Dioxide Anion Gap BUN Creatinine Est GFR ( Amer) Est GFR (Non-Af Amer) POC Glucose (mg/dL) 144 H Random Glucose Calcium GGT 04/29/18 05:30 WBC RBC Hgb Hct MCV MCH MCHC RDW Plt Count pCO2 pO2 HCO3 ABG pH ABG Total CO2 ABG O2 Saturation ABG O2 Content ABG Base Excess ABG Hemoglobin ABG Carboxyhemoglobin POC ABG HHb (Measured) ABG Methemoglobin ABG O2 Capacity Preston Test A-a O2 Difference Hgb O2 Saturation Vent Mode FiO2 PEEP Sodium 143 Potassium 4.2 Chloride 112 H Carbon Dioxide 24 Anion Gap 11 BUN 18 H Creatinine 0.6 L Est GFR ( Amer) > 60 Est GFR (Non-Af Amer) > 60 POC Glucose (mg/dL) Random Glucose 159 H Calcium 8.4 GGT Fingerstick Blood Sugar Results: 129 Critical Care Progress Note - Nutrition Nutrition: Nutrition Category Date Time Status NPO Diet [DIET] Diets 04/27/18 Breakfast Active Assessment/Plan - Assessment and Plan (Free Text) Assessment: 1.Acut Respiratory Failure hypoxic and hypercapnic, secondary to Status Asthmaticus/COPD exacerbation -on CPAP, since morning PS 10 PEEP 5, comfortable , will extubate shortly -Duoneb INH Neb unit dose Q 4h -Solumedrol 40 mg IV q6 2. Pneumonia -Aztreonam 2G IV Q8h -Zithromax 500 mg IV QD -Pulmonary consult, Dr Holder. - CXR : hilar infiltrate 3.Chronic pain likely secondary to OA -Toradol 30 IVP Q6h PRN pain - Pt is also on Morphine IV 4. Hx of Depression/Anxiety -Home meds on hold -Ativan 2 mg IV Q6h PRN agitation 5.Obesity -BMI 35.4 DVT Prophylaxis Lovenox 40 Sc QD Code Status: Full co
--- NOTE | 2018-04-29 10:51 | CP.PCM.PN ---
Subjective - Date & Time of Evaluation Date of Evaluation: 04/29/18 Time of Evaluation: 10:30 - Subjective Subjective: No fever Pt was extubated by Dr Centeno- now on Ventimask denies CP no abd pain has chrponic knee pain- plan was for TKR in 2 months once all her clearance can be completed as outpt - accdg to pt - Dr Eric is her Ortho Objective - Vital Signs/Intake and Output Vital Signs (last 24 hours): Temp Pulse Resp BP Pulse Ox 98.7 F 84 18 151/90 H 98 04/28/18 23:30 04/29/18 09:00 04/29/18 09:00 04/29/18 09:00 04/29/18 09:00 Intake and Output: 04/29/18 04/29/18 06:59 18:59 Intake Total Output Total 100 Balance -100 - Medications Medications: Current Medications Albuterol/Ipratropium (Duoneb 3 Mg/0.5 Mg (3 Ml) Ud) 3 ml INH RQ4 MILI Last Admin: 04/29/18 07:57 Dose: 3 ml Enoxaparin Sodium (Lovenox) 40 mg SC DAILY MILI; Protocol Last Admin: 04/29/18 09:07 Dose: 40 mg Hydralazine HCl (Apresoline) 10 mg IV Q6 PRN PRN Reason: for SBP> 160 Last Admin: 04/28/18 21:34 Dose: 10 mg Sodium Chloride (Sodium Chloride 0.9%) 1,000 mls @ 100 mls/hr IV .Q10H MILI Last Admin: 04/27/18 17:12 Dose: 100 mls/hr Azithromycin 500 mg/ Sodium (Chloride) 250 mls @ 250 mls/hr IVPB DAILY MILI; Protocol Last Admin: 04/29/18 09:09 Dose: 250 mls/hr Aztreonam 2 gm/ Sodium (Chloride) 100 mls @ 100 mls/hr IVPB Q8 MILI; Protocol Last Admin: 04/29/18 09:08 Dose: 100 mls/hr Dextrose/Sodium Chloride (Dextrose 5%/0.45% Ns 1000 Ml) 1,000 mls @ 100 mls/hr IV .Q10H MILI Stop: 04/29/18 21:09 Last Admin: 04/28/18 21:22 Dose: 100 mls/hr Propofol (Diprivan) 1,000 mg in 100 mls @ 31.978 mls/hr IV .Q3H8M [facility]; Protocol Stop: 04/29/18 21:09 Last Titration: 04/29/18 06:59 Dose: 10 mcg/kg/min, 6.396 mls/hr Ketorolac Tromethamine (Toradol) 30 mg IVP Q6H PRN PRN Reason: Pain, moderate (4-7) Last Admin: 04/29/18 09:48 Dose: 30 mg Lorazepam (Ativan) 2 mg IVP Q6 PRN PRN Reason: Agitation Last Admin: 04/28/18 05:06 Dose: 2 mg Methylprednisolone (Solu-Medrol) 40 mg IVP Q6 [facility] Last Admin: 04/29/18 09:05 Dose: 40 mg Morphine Sulfate (Morphine) 4 mg IVP Q2 PRN PRN Reason: Pain, moderate (4-7) Last Admin: 04/29/18 07:27 Dose: 4 mg Nicotine (Nicoderm Cq) 1 patch TD DAILY [facility] Last Admin: 04/29/18 09:06 Dose: 1 patch - Labs Labs: 04/29/18 05:30 04/29/18 05:30 - Constitutional Appears: No Acute Distress - Head Exam Head Exam: NORMAL INSPECTION, NORMOCEPHALIC - Eye Exam Eye Exam: EOMI, Normal appearance Pupil Exam: NORMAL ACCOMODATION - ENT Exam ENT Exam: Mucous Membranes Dry, Normal External Ear Exam - Neck Exam Neck Exam: Full ROM - Respiratory Exam Respiratory Exam: Rhonchi, NORMAL BREATHING PATTERN. absent: Wheezes, Respiratory Distress - Cardiovascular Exam Cardiovascular Exam: REGULAR RHYTHM, +S1, +S2 - GI/Abdominal Exam GI & Abdominal Exam: Soft, Normal Bowel Sounds. absent: Tenderness - Extremities Exam Extremities Exam: Normal Capillary Refill, Normal Inspection Additional comments: left knee pain on ROM - Back Exam Back Exam: Full ROM. absent: CVA tenderness (L), CVA tenderness (R) - Neurological Exam Neurological Exam: Alert, Awake, CN II-XII Intact, Oriented x3 Neuro motor strength exam: Left Upper Extremity: 5, Right Upper Extremity: 5, Left Lower Extremity: 5, Right Lower Extremity: 5 - Psychiatric Exam Psychiatric exam: Normal Affect, Normal Mood - Skin Skin Exam: Dry, Normal Color, Warm Assessment and Plan - Assessment and Plan (Free Text) Assessment: 57 Y/O Female with PMHx of Asthma/COPD, smoker, Obesity, Arthritis, Chronic pain on opioids, Depression, anxiety, also there is h/o A fib in EMR, and previous admissions to ICU for Asthma/ COPD exacerbation x2 last year. Patient was brought by EMS in respiratory distress - she received Duoneb x 2, Terbutaline, magnesium and solumedrol and placed in Bipap enroute to the hospital. Patient was intubated in the ED due to worseing respiratory distress. Today 04/29 , pt was extubated . 1.Acute Hypoxic Respiratory Failure secondary to Status Asthmaticus/COPD exac erbation history of Moderate Intermittent Asthma -Pt was intubated - extubated today - no on 50% Ventimask -Pulmonary consulted: Dr. Rogel -Kyawonedemarcus INH Neb unit dose Q 4h -cont Solumedrol 40 mg IV q6- slow taper - restart Singulair 2. Pneumonia prob bacterial - Continue Aztreonam 2G IV Q8h and Zithromax 500 mg IV QD -Pulmonary consult, Dr Holder. - CXR : hilar infiltrate- ff up for resolution 3.Chronic pain likely secondary to OA -Toradol 30 IVP Q6h PRN pain - Pt is also on Morphine IV- will d/c change to PO Tylenol # 3 ( pt's home med) - pt sees Dr Eric as outpt 4. Hx of Depression/Anxiety - restart Xanax prn - restart Halcion 5.Obesity -BMI 35.4 6. Hyperglycemia due to steroids accucheck ACHS DVT Prophylaxis Lovenox 40 Sc QD Code Status: Full code.
[2018-04-29] MEDS ORDERED: Tiotropium 18 mcg Cap For Inhalation INH SCH (11:00)
[2018-04-29] MEDS: Lidocaine 5% Patch TD SCH (12:18)
[2018-04-29] MEDS ORDERED: Acetaminophen/Cod NO 4 TAB PO PRN (15:13)
[2018-04-29] MEDS: Pantoprazole 40 mg EC Tab PO SCH (16:05)
[2018-04-29] MEDS ORDERED: Acetaminophen-Codeine 300/30 mg Tab PO PRN (16:09)
[2018-04-29] MEDS: Insulin Lispro (humaLOG) 100 Units/ml Inj SC SCH ×2 (17:23→22:11)
[2018-04-29] MEDS ORDERED: Patient's Own Med (Fluticasone/Salmeterol [Airduo Respiclick 113-14 Mcg] 1 PUFF) IH SCH (21:00)
[2018-04-30] MEDS: Albuterol-Ipratrop 3 mg / 0.5 (3 ml) UD INH SCH ×7 (00:30→23:45)
[2018-04-30] MEDS: MethylPREDNISolone 40 mg Vial IVP SCH ×3 (01:00→16:28)
[2018-04-30] MEDS: Aztreonam 2 GM in Sodium Chloride 0.9% 100 ML IVPB SCH ×3 (01:16→16:26)
[2018-04-30 05:50] LABS: BLOOD UREA NITROGEN 17 mg/dl (7-17); CALCIUM 8.6 mg/dL (8.4-10.2); GFR NON-AFRICAN AMERICAN > 60
[2018-04-30 05:51] LABS: HEMOGLOBIN 11.8 g/dL (12.0-16.0); MEAN CELL VOLUME 82.5 fl (81.0-99.0); MEAN CORPUSCULAR HEMOGLOBIN 26.5 pg (27.0-31.0); MEAN CORPUSCULAR HGB CONC 32.1 g/dL (33.0-37.0); RBC 4.47 Mil/uL (3.80-5.20); RED CELL DISTRIBUTION WIDTH 14.2 % (11.5-14.5)
[2018-04-30] MEDS: Insulin Lispro (humaLOG) 100 Units/ml Inj SC SCH ×4 (08:02→22:26)
[2018-04-30] MEDS: Pantoprazole 40 mg EC Tab PO SCH (08:57)
[2018-04-30] MEDS: Enoxaparin 40 mg Syringe SC SCH (08:57)
[2018-04-30] MEDS: Lidocaine 5% Patch TD SCH (09:09)
--- NOTE | 2018-04-30 09:26 | CP.PCM.PN ---
<Magno NashKristen - Last Filed: 04/30/18 12:15> Subjective - Date & Time of Evaluation Date of Evaluation: 04/30/18 Time of Evaluation: 09:05 - Subjective Subjective: Patient seen this morning at bedside, CHATA pashant was extubated yesterday and placed on CPAP, now patient in using Oxigen NC 3L appears confortable and no SOB answering my questions, no tachypnea. Patient c/o moderate lower rib cage tenderness that is reproducible to touch ( was present on admission) and with no radiation, denies nausea, vomiting, abdominal pain. Hall cath in place with clear urine in bag (will d/c hall). Objective - Vital Signs/Intake and Output Vital Signs (last 24 hours): Temp Pulse Resp BP Pulse Ox 97.0 F L 77 17 135/105 H 95 04/30/18 08:00 04/30/18 08:56 04/30/18 08:00 04/30/18 08:56 04/30/18 08:00 Intake and Output: 04/30/18 04/30/18 06:59 18:59 Intake Total 200 Output Total 1700 Balance -1500 - Medications Medications: Current Medications Acetaminophen/Codeine Phosphate (Tylenol/Codeine 300 Mg/30 Mg) 1 tab PO Q4 PRN PRN Reason: Pain, moderate (4-7) Albuterol/Ipratropium (Duoneb 3 Mg/0.5 Mg (3 Ml) Ud) 3 ml INH RQ4 MILI Last Admin: 04/30/18 07:51 Dose: 3 ml Alprazolam (Xanax) 0.25 mg PO Q12 PRN PRN Reason: Anxiety Stop: 05/06/18 10:54 Last Admin: 04/30/18 01:20 Dose: 0.25 mg Enoxaparin Sodium (Lovenox) 40 mg SC DAILY MILI; Protocol Last Admin: 04/30/18 08:57 Dose: 40 mg Home Med (Fluticasone/Salmeterol [Airduo Respiclick 113-14 Mcg]) 1 puff IH Q12 MILI Home Med (Triazolam [Halcion]) 0.5 mg PO HS PRN PRN Reason: Sleep Hydralazine HCl (Apresoline) 10 mg IV Q6 PRN PRN Reason: for SBP> 160 Last Admin: 04/28/18 21:34 Dose: 10 mg Sodium Chloride (Sodium Chloride 0.9%) 1,000 mls @ 100 mls/hr IV .Q10H COUNTS INCLUDE 234 BEDS AT THE [facility] Last Admin: 04/27/18 17:12 Dose: 100 mls/hr Azithromycin 500 mg/ Sodium (Chloride) 250 mls @ 250 mls/hr IVPB DAILY COUNTS INCLUDE 234 BEDS AT THE [facility]; Protocol Last Admin: 04/29/18 09:09 Dose: 250 mls/hr Aztreonam 2 gm/ Sodium (Chloride) 100 mls @ 100 mls/hr IVPB Q8 MILI; Protocol Last Admin: 04/30/18 08:55 Dose: 100 mls/hr Insulin Human Lispro (Humalog) 0 units SC ACHS MILI; Protocol Last Admin: 04/30/18 08:02 Dose: Not Given Ketorolac Tromethamine (Toradol) 30 mg IVP Q6H PRN PRN Reason: Pain, moderate (4-7) Last Admin: 04/30/18 01:25 Dose: 30 mg Lidocaine (Lidoderm) 1 ea TD DAILY COUNTS INCLUDE 234 BEDS AT THE [facility] Last Admin: 04/30/18 09:09 Dose: 1 ea Lorazepam (Ativan) 2 mg IVP Q6 PRN PRN Reason: Agitation Last Admin: 04/28/18 05:06 Dose: 2 mg Losartan Potassium (Cozaar) 50 mg PO DAILY COUNTS INCLUDE 234 BEDS AT THE [facility] Last Admin: 04/30/18 08:56 Dose: 50 mg Methylprednisolone (Solu-Medrol) 40 mg IVP Q8 MILI Last Admin: 04/30/18 08:56 Dose: 40 mg Montelukast Sodium (Singulair) 10 mg PO HS COUNTS INCLUDE 234 BEDS AT THE [facility] Last Admin: 04/29/18 22:14 Dose: 10 mg Nicotine (Nicoderm Cq) 1 patch TD DAILY COUNTS INCLUDE 234 BEDS AT THE [facility] Last Admin: 04/30/18 09:06 Dose: 1 patch Pantoprazole Sodium (Protonix Ec Tab) 40 mg PO DAILY COUNTS INCLUDE 234 BEDS AT THE [facility] Last Admin: 04/30/18 08:57 Dose: 40 mg - Labs Labs: 04/30/18 04:30 04/30/18 04:30 - Constitutional Appears: No Acute Distress - Head Exam Head Exam: ATRAUMATIC, NORMOCEPHALIC - Eye Exam Eye Exam: EOMI, PERRL - ENT Exam ENT Exam: Mucous Membranes Moist - Neck Exam Neck Exam: Normal Inspection - Respiratory Exam Respiratory Exam: Rhonchi (diffuse on b/l lung colindres) - Cardiovascular Exam Cardiovascular Exam: RRR, +S1, +S2 - GI/Abdominal Exam GI & Abdominal Exam: Soft, Normal Bowel Sounds. absent: Mass - Extremities Exam Extremities Exam: absent: Joint Swelling, Pedal Edema Additional comments: tenderness to ROM of LEft Knee - Neurological Exam Neurological Exam: Alert, Awake, Oriented x3 - Psychiatric Exam Psychiatric exam: Anxious, Normal Affect - Skin Skin Exam: Normal Color, Warm Assessment and Plan - Assessment and Plan (Free Text) Assessment: 57 Y/O Female with PMHx of Asthma/COPD, smoker, Obesity, Arthritis, Chronic pain on opioids, Depression, anxiety, also there is h/o A fib in EMR, and previous admissions to ICU for Asthma/ COPD exacerbation x2 last year. Patient was brought by EMS in respiratory distress, she received Duoneb x 2, Terbutaline, magnesium and solumedrol and placed in Bipap enroute to the hospital. Patient was intubated in the ED due to worseing respiratory distress. Patient condition improving, today 04/30 confortably talking on Ox 3 L NC . Plan: 1.Acute Hypoxic Respiratory Failure secondary to Status Asthmaticus/COPD exacerbation history of Moderate Intermittent Asthma -Pt was intubated 04/27- extubated on 04/29 -On Oxigen NC 3L -Pulmonary consulted: Dr. Rogel -Mari INH Neb unit dose Q 4h -cont w/ Solumedrol 40 mg IV q8h- c/ w slow taper -Singulair 10 PO QHS 2. Pneumonia probably bacterial - C/w Aztreonam 2G IV Q8h - C/w Zithromax 500 mg IV QD - Pulmonary consult, Dr Holder. - CXR : hilar infiltrate- f/u for resolution 3.Chronic pain likely secondary to OA -Toradol 30 IVP Q6h PRN pain - Tylenol # 3 ( pt's home med) Q4h PRN pain -Lidocaine 5% Patch to pain joint QD - pt sees Dr Eric as outpt ortho 4. Hx of Depression/Anxiety - restart Xanax prn - restart Halcion 5.Obesity -BMI 35.4 -Cardiac healthy diet. 6.Hx of essential HTN -Losartan 50 PO QD -Hydralazine 10 IV Q6h PRN for SBP>160, as per critical certified medical asst 7. Hyperglycemia due to steroids accucheck ACHS DVT Prophylaxis Lovenox 40 Sc QD Code Status: Full code. <Maya Gallagher - Last Filed: 04/30/18 15:49> Objective - Vital Signs/Intake and Output Vital Signs (last 24 hours): Temp Pulse Resp BP Pulse Ox 98.2 F 87 18 165/98 H 100 04/30/18 12:00 04/30/18 14:00 04/30/18 12:00 04/30/18 14:00 04/30/18 14:00 Intake and Output: 04/30/18 04/30/18 06:59 18:59 Intake Total 200 580 Output Total 1700 500 Balance -1500 80 - Medications Medications: Current Medications Acetaminophen/Codeine Phosphate (Tylenol/Codeine 300 Mg/30 Mg) 1 tab PO Q4 PRN PRN Reason: Pain, moderate (4-7) Albuterol/Ipratropium (Duoneb 3 Mg/0.5 Mg (3 Ml) Ud) 3 ml INH RQ4 MILI Last Admin: 04/30/18 15:20 Dose: 3 ml Alprazolam (Xanax) 0.25 mg PO Q12 PRN PRN Reason: Anxiety Stop: 05/06/18 10:54 Last Admin: 04/30/18 13:55 Dose: 0.25 mg Enoxaparin Sodium (Lovenox) 40 mg SC DAILY [facility]; Protocol Last Admin: 04/30/18 08:57 Dose: 40 mg Home Med (Fluticasone/Salmeterol [Airduo Respiclick 113-14 Mcg]) 1 puff IH Q12 MILI Home Med (Triazolam [Halcion]) 0.5 mg PO HS PRN PRN Reason: Sleep Hydralazine HCl (Apresoline) 10 mg IV Q6 PRN PRN Reason: for SBP> 160 Last Admin: 04/28/18 21:34 Dose: 10 mg Sodium Chloride (Sodium Chloride 0.9%) 1,000 mls @ 100 mls/hr IV .Q10H [facility]I Last Admin: 04/27/18 17:12 Dose: 100 mls/hr Azithromycin 500 mg/ Sodium (Chloride) 250 mls @ 250 mls/hr IVPB DAILY [facility]; Protocol Last Admin: 04/30/18 10:33 Dose: 250 mls/hr Aztreonam 2 gm/ Sodium (Chloride) 100 mls @ 100 mls/hr IVPB Q8 COUNTS INCLUDE 234 BEDS AT THE [facility]; Protocol Last Admin: 04/30/18 08:55 Dose: 100 mls/hr Insulin Human Lispro (Humalog) 0 units SC ACHS [facility]I; Protocol Last Admin: 04/30/18 12:20 Dose: Not Given Ketorolac Tromethamine (Toradol) 30 mg IVP Q6H PRN PRN Reason: Pain, moderate (4-7) Last Admin: 04/30/18 12:22 Dose: 30 mg Lidocaine (Lidoderm) 1 ea TD DAILY COUNTS INCLUDE 234 BEDS AT THE [facility] Last Admin: 04/30/18 09:09 Dose: 1 ea Lorazepam (Ativan) 2 mg IVP Q6 PRN PRN Reason: Agitation Last Admin: 04/28/18 05:06 Dose: 2 mg Losartan Potassium (Cozaar) 50 mg PO DAILY COUNTS INCLUDE 234 BEDS AT THE [facility] Last Admin: 04/30/18 08:56 Dose: 50 mg Methylprednisolone (Solu-Medrol) 40 mg IVP Q8 [facility] Last Admin: 04/30/18 08:56 Dose: 40 mg Montelukast Sodium (Singulair) 10 mg PO HS COUNTS INCLUDE 234 BEDS AT THE [facility] Last Admin: 04/29/18 22:14 Dose: 10 mg Nicotine (Nicoderm Cq) 1 patch TD DAILY COUNTS INCLUDE 234 BEDS AT THE [facility] Pantoprazole Sodium (Protonix Ec Tab) 40 mg PO DAILY COUNTS INCLUDE 234 BEDS AT THE [facility] Last Admin: 04/30/18 08:57 Dose: 40 mg - Labs Labs: 04/30/18 04:30 04/30/18 04:30 Attending/Attestation - Attestation I have personally seen and examined this patient.: Yes I have fully participated in the care of the patient.: Yes I have reviewed all pertinent clinical information, including history, physical exam and plan: Yes Notes (Text): 04/30/18 15:48 agree with findings and plan as above. can downgrade to tele today.
[2018-04-30] MEDS: Azithromycin 500 MG in Sodium Chloride 0.9% 250 ML IVPB SCH (10:33)
[2018-04-30 11:42] LABS: ABG ALLEN TEST YES; ARTERIAL BLOOD GAS HCO3 25.3 mmol/L (21-28); ARTERIAL BLOOD GAS HEMOGLOBIN 11.9 g/dL (11.7-17.4); ARTERIAL BLOOD GAS O2 CAPACITY 16.2 mL/dL (16-24); ARTERIAL BLOOD GAS O2 CONTENT 15.9 ML/dL (15-23); ARTERIAL BLOOD GAS O2 SAT 98.1 % (95-98); ARTERIAL BLOOD GAS PCO2 37 mm/Hg (35-45); ARTERIAL BLOOD GAS PH 7.43 (7.35-7.45); ARTERIAL BLOOD GAS PO2 76 mm/Hg (80-100); ARTERIAL BLOOD GAS TCO2 25.7 mmol/L (22-28)
[2018-05-01] MEDS: Aztreonam 2 GM in Sodium Chloride 0.9% 100 ML IVPB SCH ×3 (00:53→17:01)
[2018-05-01] MEDS: MethylPREDNISolone 40 mg Vial IVP SCH ×3 (00:54→17:02)
[2018-05-01] MEDS: Albuterol-Ipratrop 3 mg / 0.5 (3 ml) UD INH SCH ×6 (04:54→23:52)
[2018-05-01 05:36] LABS: HEMOGLOBIN 12.3 g/dL (12.0-16.0); MEAN CELL VOLUME 83.7 fl (81.0-99.0); MEAN CORPUSCULAR HEMOGLOBIN 26.7 pg (27.0-31.0); MEAN CORPUSCULAR HGB CONC 31.9 g/dL (33.0-37.0); RBC 4.6 Mil/uL (3.80-5.20); WHITE BLOOD COUNT 10.2 K/uL (4.8-10.8)
[2018-05-01 05:45] LABS: BLOOD UREA NITROGEN 19 mg/dl (7-17); CALCIUM 8.7 mg/dL (8.4-10.2); GFR NON-AFRICAN AMERICAN > 60
--- NOTE | 2018-05-01 08:13 | CP.PCM.PN ---
<Magnoedis NashKristen - Last Filed: 05/01/18 10:55> Subjective - Date & Time of Evaluation Date of Evaluation: 05/01/18 Time of Evaluation: 08:10 - Subjective Subjective: Patient seen this morning at bedside, NAD, is using Oxigen 3 L NC and is comfortable, no tachypnea. Patient states she has occasional cough with clear phlegm expectoration, but reports she is feeling better. Patient denies ELIZONDO, chest pain, N/V/D, dysuria, fever or chills. Objective - Vital Signs/Intake and Output Vital Signs (last 24 hours): Temp Pulse Resp BP Pulse Ox 98.3 F 63 18 140/79 99 05/01/18 05:00 05/01/18 05:00 05/01/18 05:00 05/01/18 05:00 05/01/18 05:00 Intake and Output: 05/01/18 05/01/18 06:59 18:59 Intake Total 100 Balance 100 - Medications Medications: Current Medications Acetaminophen/Codeine Phosphate (Tylenol/Codeine 300 Mg/30 Mg) 1 tab PO Q4 PRN PRN Reason: Pain, moderate (4-7) Last Admin: 04/30/18 22:26 Dose: 1 tab Albuterol/Ipratropium (Duoneb 3 Mg/0.5 Mg (3 Ml) Ud) 3 ml INH RQ4 [facility] Last Admin: 05/01/18 07:49 Dose: 3 ml Alprazolam (Xanax) 0.25 mg PO Q12 PRN PRN Reason: Anxiety Stop: 05/06/18 10:54 Last Admin: 05/01/18 00:57 Dose: 0.25 mg Enoxaparin Sodium (Lovenox) 40 mg SC DAILY [facility]; Protocol Last Admin: 04/30/18 08:57 Dose: 40 mg Home Med (Fluticasone/Salmeterol [Airduo Respiclick 113-14 Mcg]) 1 puff IH Q12 [facility] Home Med (Triazolam [Halcion]) 0.5 mg PO HS PRN PRN Reason: Sleep Hydralazine HCl (Apresoline) 10 mg IV Q6 PRN PRN Reason: for SBP> 160 Last Admin: 04/28/18 21:34 Dose: 10 mg Sodium Chloride (Sodium Chloride 0.9%) 1,000 mls @ 100 mls/hr IV .Q10H [facility] Last Admin: 04/27/18 17:12 Dose: 100 mls/hr Azithromycin 500 mg/ Sodium (Chloride) 250 mls @ 250 mls/hr IVPB DAILY [facility]; Protocol Last Admin: 04/30/18 10:33 Dose: 250 mls/hr Aztreonam 2 gm/ Sodium (Chloride) 100 mls @ 100 mls/hr IVPB Q8 [facility]; Protocol Last Admin: 05/01/18 00:53 Dose: 100 mls/hr Insulin Human Lispro (Humalog) 0 units SC ACHS [facility]; Protocol Last Admin: 04/30/18 22:26 Dose: Not Given Ketorolac Tromethamine (Toradol) 30 mg IVP Q6H PRN PRN Reason: Pain, moderate (4-7) Last Admin: 05/01/18 02:25 Dose: 30 mg Lidocaine (Lidoderm) 1 ea TD DAILY [facility] Last Admin: 04/30/18 09:09 Dose: 1 ea Losartan Potassium (Cozaar) 50 mg PO DAILY [facility] Last Admin: 04/30/18 08:56 Dose: 50 mg Methylprednisolone (Solu-Medrol) 40 mg IVP Q8 [facility] Last Admin: 05/01/18 00:54 Dose: 40 mg Montelukast Sodium (Singulair) 10 mg PO HS [facility] Last Admin: 04/30/18 22:25 Dose: 10 mg Nicotine (Nicoderm Cq) 1 patch TD DAILY [facility] Last Admin: 04/30/18 16:23 Dose: 1 patch Pantoprazole Sodium (Protonix Ec Tab) 40 mg PO DAILY [facility] Last Admin: 04/30/18 08:57 Dose: 40 mg - Labs Labs: 05/01/18 04:20 05/01/18 04:20 - Constitutional Appears: No Acute Distress - Head Exam Head Exam: ATRAUMATIC, NORMOCEPHALIC - Eye Exam Eye Exam: EOMI - ENT Exam ENT Exam: Mucous Membranes Moist - Neck Exam Neck Exam: Full ROM - Respiratory Exam Respiratory Exam: Rhonchi - Cardiovascular Exam Cardiovascular Exam: RRR, +S1, +S2 - GI/Abdominal Exam GI & Abdominal Exam: Soft, Normal Bowel Sounds. absent: Tenderness - Extremities Exam Extremities Exam: absent: Pedal Edema - Neurological Exam Neurological Exam: Alert, Awake, Oriented x3 - Psychiatric Exam Psychiatric exam: Normal Affect, Normal Mood - Skin Skin Exam: Normal Color, Warm Assessment and Plan - Assessment and Plan (Free Text) Assessment: 57 Y/O Female with PMHx of Asthma/COPD, smoker, Obesity, Arthritis, Chronic pain on opioids, Depression, anxiety, also there is h/o A fib in EMR, and previous admissions to ICU for Asthma/ COPD exacerbation x2 last year. Patient was brought by EMS in respiratory distress, she received Duoneb x 2, Terbutaline, magnesium and solumedrol and placed in Bipap enroute to the hospital. Patient was intubated in the ED due to worseing respiratory distress. Plan: 1.Acute Hypoxic Respiratory Failure secondary to Status Asthmaticus/COPD exacerbation history of Moderate Intermittent Asthma -Pt was intubated 04/27- extubated on 04/29 -On Oxigen NC 3L -OOB to chair -Pulmonary consulted: Dr. Rogel -[facility]arc[facility] INH Neb unit dose Q 4h -cont w/ Solumedrol 40 mg IV q8h- c/ w slow taper -Singulair 10 PO QHS 2. Pneumonia probably bacterial - C/w Aztreonam 2G IV Q8h started on 04/27 - C/w Zithromax 500 mg IV QD started on 04/27 - Pulmonary consult, Dr Holder. - CXR : hilar infiltrate- f/u for resolution 3.Chronic pain likely secondary to OA -Toradol 30 IVP Q6h PRN pain - Tylenol # 3 ( pt's home med) Q4h PRN pain -Lidocaine 5% Patch to pain joint QD - pt sees Dr Eric as outpt ortho 4. Hx of Depression/Anxiety - restart Xanax prn - restart Halcion 5.Obesity -BMI 35.4 -Cardiac healthy diet. 6.Hx of essential HTN -Losartan 50 PO QD -Hydralazine 10 IV Q6h PRN for SBP>160, as per critical director of medical education 7. Hyperglycemia due to steroids accucheck ACHS DVT Prophylaxis Lovenox 40 Sc QD Code Status: Full code. <Maya Gallagher - Last Filed: 05/01/18 16:07> Objective - Vital Signs/Intake and Output Vital Signs (last 24 hours): Temp Pulse Resp BP Pulse Ox 98.2 F 62 17 129/80 97 11/06/18 15:48 05/01/18 15:48 05/01/18 15:48 05/01/18 15:48 05/01/18 15:48 Intake and Output: 05/01/18 05/01/18 06:59 18:59 Intake Total 100 Balance 100 - Medications Medications: Current Medications Acetaminophen/Codeine Phosphate (Tylenol/Codeine 300 Mg/30 Mg) 1 tab PO Q4 PRN PRN Reason: Pain, moderate (4-7) Last Admin: 04/30/18 22:26 Dose: 1 tab Albuterol/Ipratropium (Duoneb 3 Mg/0.5 Mg (3 Ml) Ud) 3 ml INH RQ4 [facility] Last Admin: 05/01/18 15:26 Dose: 3 ml Alprazolam (Xanax) 0.25 mg PO Q12 PRN PRN Reason: Anxiety Stop: 05/06/18 10:54 Last Admin: 05/01/18 00:57 Dose: 0.25 mg Enoxaparin Sodium (Lovenox) 40 mg SC DAILY [facility]; Protocol Last Admin: 05/01/18 09:26 Dose: 40 mg Home Med (Fluticasone/Salmeterol [Airduo Respiclick 113-14 Mcg]) 1 puff IH Q12 [facility] Home Med (Triazolam [Halcion]) 0.5 mg PO HS PRN PRN Reason: Sleep Hydralazine HCl (Apresoline) 10 mg IV Q6 PRN PRN Reason: for SBP> 160 Last Admin: 04/28/18 21:34 Dose: 10 mg Sodium Chloride (Sodium Chloride 0.9%) 1,000 mls @ 100 mls/hr IV .Q10H [facility] Last Admin: 05/01/18 09:32 Dose: Not Given Azithromycin 500 mg/ Sodium (Chloride) 250 mls @ 250 mls/hr IVPB DAILY [facility]; Protocol Last Admin: 05/01/18 09:29 Dose: 250 mls/hr Aztreonam 2 gm/ Sodium (Chloride) 100 mls @ 100 mls/hr IVPB Q8 [facility]; Protocol Last Admin: 05/01/18 09:30 Dose: 100 mls/hr Insulin Human Lispro (Humalog) 0 units SC ACHS [facility]; Protocol Last Admin: 05/01/18 13:11 Dose: Not Given Ketorolac Tromethamine (Toradol) 30 mg IVP Q6H PRN PRN Reason: Pain, moderate (4-7) Last Admin: 05/01/18 09:30 Dose: 30 mg Lidocaine (Lidoderm) 1 ea TD DAILY [facility] Last Admin: 05/01/18 09:26 Dose: 1 ea Losartan Potassium (Cozaar) 50 mg PO DAILY [facility] Last Admin: 05/01/18 09:28 Dose: 50 mg Methylprednisolone (Solu-Medrol) 40 mg IVP Q8 [facility] Last Admin: 05/01/18 09:26 Dose: 40 mg Montelukast Sodium (Singulair) 10 mg PO HS [facility] Last Admin: 04/30/18 22:25 Dose: 10 mg Nicotine (Nicoderm Cq) 1 patch TD DAILY [facility] Last Admin: 05/01/18 09:27 Dose: 1 patch Pantoprazole Sodium (Protonix Ec Tab) 40 mg PO DAILY [facility] Last Admin: 05/01/18 09:27 Dose: 40 mg - Labs Labs: 05/01/18 04:20 05/01/18 04:20 Attending/Attestation - Attestation I have personally seen and examined this patient.: Yes I have fully participated in the care of the patient.: Yes I have reviewed all pertinent clinical information, including history, physical exam and plan: Yes Notes (Text): 05/01/18 16:07 Seen examined and discussed with resident. Agree with findings and plan as above.
[2018-05-01] MEDS: Lidocaine 5% Patch TD SCH (09:26)
[2018-05-01] MEDS: Enoxaparin 40 mg Syringe SC SCH (09:26)
[2018-05-01] MEDS: Pantoprazole 40 mg EC Tab PO SCH (09:27)
[2018-05-01] MEDS: Insulin Lispro (humaLOG) 100 Units/ml Inj SC SCH ×4 (09:27→21:55)
[2018-05-01] MEDS: Azithromycin 500 MG in Sodium Chloride 0.9% 250 ML IVPB SCH (09:29)
[2018-05-01] MEDS: Sodium Chloride 0.9% 1,000 ML IV SCH ×3 (09:32→21:47)
--- NOTE | 2018-05-01 09:41 | PN ---
DATE: 04/30/2018 LOCATION: ICU bed 423. TIME SPENT: 35 minutes. SUBJECTIVE: The patient is seen, evaluated at the bedside. Past medical, surgical, family and social history reviewed. HISTORY OF PRESENT ILLNESS: A 57-year-old female with obesity, chronic smoker, history of chronic obstructive pulmonary disease/chronic asthma, chronic osteoarthritis, on opioids, anxiety, depression, admitted with hypoxic respiratory failure secondary to COPD/asthma exacerbation, intubated in the ER, placed on mechanical ventilation, extubated yesterday. Overnight on nasal cannula, on CPAP for obstructive sleep apnea. Telemetry sinus rhythm, normotensive and afebrile. This morning, alert, awake, follows commands, appropriate. Occasional dry cough. Reduced wheezing, feels nauseated, reduced p.o. intake but tolerating clear liquid. Denies abdominal pain, diarrhea, dysuria. PHYSICAL EXAMINATION: VITAL SIGNS: Temperature 97, heart rate 77-103 and regular, blood pressure 135-139 over 70-105, respiratory rate 17-22, saturation 100% on oxygen 2 liters nasal cannula. HEAD, EYES, EARS, NOSE AND THROAT: Pupils are reactive. Conjunctivae pink. Sclerae are white. NECK: Supple. Trachea central. CHEST: Bilateral breath sounds. Scattered rhonchi. HEART: Rhythm regular. S1, S2 normal intensity. No S3, S4 gallop. No audible murmur. ABDOMEN: Bowel sounds present. Soft. Liver and spleen not palpable. Bladder not distended. No palpable mass. EXTREMITIES: Trace edema. DP palpable. NEUROLOGIC EXAMINATION Nonfocal. CURRENT MEDICATIONS: Tylenol with Codeine 1 tablet every 4 hours for moderate pain, DuoNeb 3 mL via nebulizer every 4 hours, Xanax 0.25 mg p.o. every 12 hours, Zithromax 500 mg IV daily, aztreonam 2 g IV every 8 hours., Lovenox 40 subcu daily, hydralazine 10 mg IV every six hours p.r.n., Accu-Chek with regular insulin and coverage, Toradol 30 IV every six p.r.n. Lidoderm 1 each application daily, Ativan 2 mg IV every six p.r.n., Cozaar 50 mg daily, Solu-Medrol 40 IV every 8 hours, Singulair 10 mg p.o. daily, nicotine patch 14 mg daily, Protonix 1 tablet 40 mg daily, sodium chloride at 100 mL/hour. IMPRESSION: 1. Neurologic: Alert, awake, follows commands, appropriate, history of anxiety, depression. 2. Pulmonary: Status post hypoxic respiratory failure, asthma/COPD overlap syndrome exacerbation. Nicotine dependence, off smoking about a month prior to the admission. Continue DuoNeb 3 mL via nebulizer, Solu-Medrol 40 mg IV q. eight, Singulair 10 mg daily, nicotine patch to facilitate smoking cessation. Continue gastrointestinal and deep venous thrombosis prophylaxis. 3. Cardiac: No arrhythmias. Normotensive. 4. Gastrointestinal: Mild gastritis on Pepcid. Continue diet as tolerated. 5. Renal, no acute issues. 6. Musculoskeletal: Osteoarthritis being worked up as an outpatient for possible total knee replacement. 7. Infectious Disease: Possible tracheal bronchitis. No clear evidence of pneumonia, currently empirically on aztreonam and Zithromax. Casey Alex MD
[2018-05-02] MEDS: MethylPREDNISolone 40 mg Vial IVP SCH ×3 (00:04→17:54)
[2018-05-02] MEDS: Aztreonam 2 GM in Sodium Chloride 0.9% 100 ML IVPB SCH ×3 (00:05→18:02)
[2018-05-02] MEDS: Albuterol-Ipratrop 3 mg / 0.5 (3 ml) UD INH SCH ×6 (04:45→23:28)
[2018-05-02] MEDS: Sodium Chloride 0.9% 1,000 ML IV SCH ×2 (06:42→13:44)
[2018-05-02] MEDS: Insulin Lispro (humaLOG) 100 Units/ml Inj SC SCH ×4 (08:48→22:10)
[2018-05-02] MEDS: Lidocaine 5% Patch TD SCH (08:50)
[2018-05-02] MEDS: Enoxaparin 40 mg Syringe SC SCH (08:53)
[2018-05-02] MEDS: Pantoprazole 40 mg EC Tab PO SCH (08:55)
--- NOTE | 2018-05-02 09:20 | CP.PCM.PN ---
<Magno PascalehiginioKristen - Last Filed: 05/02/18 09:27> Subjective - Date & Time of Evaluation Date of Evaluation: 05/02/18 Time of Evaluation: 08:55 - Subjective Subjective: Patient seen this morning at bedside, NAD, is using Oxigen 3 L NC, no tachypnea. Patient states she has occasional cough with brownish phlegm expectoration today. Patient denies ELIZONDO, chest pain, N/V/D, dysuria, fever or chills. Patient reports stills feels SOB walking to the commode without O2. Objective - Vital Signs/Intake and Output Vital Signs (last 24 hours): Temp Pulse Resp BP Pulse Ox 98.2 F 69 18 156/88 H 96 05/02/18 08:00 05/02/18 08:47 05/02/18 08:00 05/02/18 08:47 05/02/18 08:00 - Medications Medications: Current Medications Acetaminophen/Codeine Phosphate (Tylenol/Codeine 300 Mg/30 Mg) 1 tab PO Q4 PRN PRN Reason: Pain, moderate (4-7) Last Admin: 04/30/18 22:26 Dose: 1 tab Albuterol/Ipratropium (Duoneb 3 Mg/0.5 Mg (3 Ml) Ud) 3 ml INH RQ4 [facility] Last Admin: 05/02/18 08:34 Dose: 3 ml Alprazolam (Xanax) 0.25 mg PO Q12 PRN PRN Reason: Anxiety Stop: 05/06/18 10:54 Last Admin: 05/02/18 01:46 Dose: 0.25 mg Enoxaparin Sodium (Lovenox) 40 mg SC DAILY [facility]; Protocol Last Admin: 05/02/18 08:53 Dose: 40 mg Home Med (Fluticasone/Salmeterol [Airduo Respiclick 113-14 Mcg]) 1 puff IH Q12 [facility] Home Med (Triazolam [Halcion]) 0.5 mg PO HS PRN PRN Reason: Sleep Hydralazine HCl (Apresoline) 10 mg IV Q6 PRN PRN Reason: for SBP> 160 Last Admin: 04/28/18 21:34 Dose: 10 mg Sodium Chloride (Sodium Chloride 0.9%) 1,000 mls @ 100 mls/hr IV .Q10H [facility] Last Admin: 05/02/18 06:42 Dose: Not Given Azithromycin 500 mg/ Sodium (Chloride) 250 mls @ 250 mls/hr IVPB DAILY [facility]; Protocol Last Admin: 05/01/18 09:29 Dose: 250 mls/hr Aztreonam 2 gm/ Sodium (Chloride) 100 mls @ 100 mls/hr IVPB Q8 [facility]; Protocol Last Admin: 05/02/18 09:06 Dose: 100 mls/hr Insulin Human Lispro (Humalog) 0 units SC ACHS [facility]; Protocol Last Admin: 05/02/18 08:48 Dose: Not Given Ketorolac Tromethamine (Toradol) 30 mg IVP Q6H PRN PRN Reason: Pain, moderate (4-7) Last Admin: 05/02/18 07:46 Dose: 30 mg Lidocaine (Lidoderm) 1 ea TD DAILY [facility] Last Admin: 05/02/18 08:50 Dose: 1 ea Losartan Potassium (Cozaar) 50 mg PO DAILY [facility] Last Admin: 05/02/18 08:47 Dose: 50 mg Methylprednisolone (Solu-Medrol) 40 mg IVP Q8 [facility] Last Admin: 05/02/18 09:00 Dose: 40 mg Montelukast Sodium (Singulair) 10 mg PO HS [facility] Last Admin: 05/01/18 22:01 Dose: 10 mg Nicotine (Nicoderm Cq) 1 patch TD DAILY [facility] Last Admin: 05/02/18 08:54 Dose: 1 patch Pantoprazole Sodium (Protonix Ec Tab) 40 mg PO DAILY [facility] Last Admin: 05/02/18 08:55 Dose: 40 mg - Labs Labs: 05/01/18 04:20 05/01/18 04:20 - Additional Findings Additional findings: - Constitutional Appears: No Acute Distress - Head Exam Head Exam: ATRAUMATIC, NORMOCEPHALIC - Eye Exam Eye Exam: EOMI - ENT Exam ENT Exam: Mucous Membranes Moist - Neck Exam Neck Exam: Full ROM - Respiratory Exam Respiratory Exam: Rhonchi, diffuse crackles on L lung field - Cardiovascular Exam Cardiovascular Exam: RRR, +S1, +S2 - GI/Abdominal Exam GI & Abdominal Exam: Soft, Normal Bowel Sounds. absent: Tenderness - Extremities Exam Extremities Exam: absent: Pedal Edema - Neurological Exam Neurological Exam: Alert, Awake, Oriented x3 - Psychiatric Exam Psychiatric exam: Normal Affect, Normal Mood - Skin Skin Exam: Normal Color, Warm Assessment and Plan - Assessment and Plan (Free Text) Assessment: 57 Y/O Female with PMHx of Asthma/COPD, smoker, Obesity, Arthritis, Chronic pain on opioids, Depression, anxiety, also there is h/o A fib in EMR, and previous admissions to ICU for Asthma/ COPD exacerbation x2 last year. Patient was brought by EMS in respiratory distress, she received Duoneb x 2, Terbutaline, magnesium and solumedrol and placed in Bipap enroute to the hospital. Patient was intubated in the ED due to worseing respiratory distress. Plan: 1.Acute Hypoxic Respiratory Failure secondary to Status Asthmaticus/COPD exacerbation history of Moderate Intermittent Asthma -Pt was intubated 04/27- extubated on 04/29 -On Oxigen NC 3L -OOB to chair -Pulmonary consulted: Dr. Rogel -Duoneb INH Neb unit dose Q 4h -cont w/ Solumedrol 40 mg IV q8h- c/ w slow taper -Singulair 10 PO QHS 2. Pneumonia probably bacterial - C/w Aztreonam 2G IV Q8h started on 04/27 - C/w Zithromax 500 mg IV QD started on 04/27 - Pulmonary consult, Dr Holder. - CXR : hilar infiltrate- f/u for resolution 3.Chronic pain likely secondary to OA -Toradol 30 IVP Q6h PRN pain - Tylenol # 3 ( pt's home med) Q4h PRN pain -Lidocaine 5% Patch to pain joint QD - pt sees Dr Eric as outpt ortho 4. Hx of Depression/Anxiety - restart Xanax prn - restart Halcion 5.Obesity -BMI 35.4 -Cardiac healthy diet. 6.Hx of essential HTN -Losartan 50 PO QD -Hydralazine 10 IV Q6h PRN for SBP>160, as per critical medical resident 7. Hyperglycemia due to steroids accucheck ACHS DVT Prophylaxis Lovenox 40 Sc QD Code Status: Full code. <Maya Gallagher - Last Filed: 05/02/18 13:37> Objective - Vital Signs/Intake and Output Vital Signs (last 24 hours): Temp Pulse Resp BP Pulse Ox 98.2 F 69 18 156/88 H 96 05/02/18 08:00 05/02/18 09:00 05/02/18 08:00 05/02/18 08:47 05/02/18 08:00 - Medications Medications: Current Medications Acetaminophen/Codeine Phosphate (Tylenol/Codeine 300 Mg/30 Mg) 1 tab PO Q4 PRN PRN Reason: Pain, moderate (4-7) Last Admin: 04/30/18 22:26 Dose: 1 tab Albuterol/Ipratropium (Duoneb 3 Mg/0.5 Mg (3 Ml) Ud) 3 ml INH RQ4 [facility] Last Admin: 05/02/18 12:19 Dose: 3 ml Enoxaparin Sodium (Lovenox) 40 mg SC DAILY [facility]; Protocol Last Admin: 05/02/18 08:53 Dose: 40 mg Home Med (Fluticasone/Salmeterol [Airduo Respiclick 113-14 Mcg]) 1 puff IH Q12 [facility] Home Med (Triazolam [Halcion]) 0.5 mg PO HS PRN PRN Reason: Sleep Hydralazine HCl (Apresoline) 10 mg IV Q6 PRN PRN Reason: for SBP> 160 Last Admin: 04/28/18 21:34 Dose: 10 mg Sodium Chloride (Sodium Chloride 0.9%) 1,000 mls @ 100 mls/hr IV .Q10H [facility] Last Admin: 05/02/18 06:42 Dose: Not Given Azithromycin 500 mg/ Sodium (Chloride) 250 mls @ 250 mls/hr IVPB DAILY [facility]; Protocol Last Admin: 05/02/18 11:30 Dose: 250 mls/hr Aztreonam 2 gm/ Sodium (Chloride) 100 mls @ 100 mls/hr IVPB Q8 [facility]; Protocol Last Admin: 05/02/18 09:06 Dose: 100 mls/hr Insulin Human Lispro (Humalog) 0 units SC ACHS [facility]; Protocol Last Admin: 05/02/18 12:56 Dose: Not Given Ketorolac Tromethamine (Toradol) 30 mg IVP Q6H PRN PRN Reason: Pain, moderate (4-7) Last Admin: 05/02/18 07:46 Dose: 30 mg Lidocaine (Lidoderm) 1 ea TD DAILY [facility] Last Admin: 05/02/18 08:50 Dose: 1 ea Losartan Potassium (Cozaar) 50 mg PO DAILY [facility] Last Admin: 05/02/18 08:47 Dose: 50 mg Methylprednisolone (Solu-Medrol) 40 mg IVP Q8 [facility] Last Admin: 05/02/18 09:00 Dose: 40 mg Montelukast Sodium (Singulair) 10 mg PO HS [facility] Last Admin: 05/01/18 22:01 Dose: 10 mg Nicotine (Nicoderm Cq) 1 patch TD DAILY [facility] Last Admin: 05/02/18 08:54 Dose: 1 patch Pantoprazole Sodium (Protonix Ec Tab) 40 mg PO DAILY [facility] Last Admin: 05/02/18 08:55 Dose: 40 mg - Labs Labs: 05/01/18 04:20 05/01/18 04:20 Attending/Attestation - Attestation I have personally seen and examined this patient.: Yes I have fully participated in the care of the patient.: Yes I have reviewed all pertinent clinical information, including history, physical exam and plan: Yes Notes (Text): 05/02/18 13:37 Seen, examined, and discussed with resident. Agree with findings and plan as above.
[2018-05-02] MEDS: Azithromycin 500 MG in Sodium Chloride 0.9% 250 ML IVPB SCH (11:30)
[2018-05-03] MEDS: Aztreonam 2 GM in Sodium Chloride 0.9% 100 ML IVPB SCH ×2 (00:27→10:23)
[2018-05-03] MEDS: MethylPREDNISolone 40 mg Vial IVP SCH ×3 (01:23→17:30)
[2018-05-03] MEDS: Albuterol-Ipratrop 3 mg / 0.5 (3 ml) UD INH SCH ×4 (05:10→15:36)
[2018-05-03 05:51] LABS: BASO % 0.1 % (0.0-2.0); HEMOGLOBIN 12.4 g/dL (12.0-16.0); LYMPH # 0.9 K/uL (1.0-4.3); LYMPH % 9.5 % (20.0-40.0); MEAN CELL VOLUME 82.1 fl (81.0-99.0); MEAN CORPUSCULAR HEMOGLOBIN 26.8 pg (27.0-31.0); MEAN CORPUSCULAR HGB CONC 32.7 g/dL (33.0-37.0); MEAN PLATELET VOLUME 9.2 fl (7.2-11.7); MONO # 0.3 K/uL (0.0-0.8); MONO % 3.1 % (0.0-10.0); NEUT # 8.6 K/uL (1.8-7.0); NEUT % 87.3 % (50.0-75.0); PLATELET COUNT 219 K/uL (130-400); RBC 4.64 Mil/uL (3.80-5.20); RED CELL DISTRIBUTION WIDTH 13.6 % (11.5-14.5); WHITE BLOOD COUNT 9.9 K/uL (4.8-10.8)
[2018-05-03 06:09] LABS: ALB/GLOB RATIO 1.3 (1.0-2.1); ALBUMIN 3.6 g/dL (3.5-5.0); ALT/SGPT 25 U/L (9-52); AST/SGOT 12 U/L (14-36); BLOOD UREA NITROGEN 17 mg/dl (7-17); CALCIUM 8.7 mg/dL (8.4-10.2); GFR NON-AFRICAN AMERICAN > 60
[2018-05-03] MEDS: Enoxaparin 40 mg Syringe SC SCH (10:24)
[2018-05-03] MEDS: Lidocaine 5% Patch TD SCH (10:24)
[2018-05-03] MEDS: Insulin Lispro (humaLOG) 100 Units/ml Inj SC SCH ×3 (10:31→17:30)
[2018-05-03] MEDS: Pantoprazole 40 mg EC Tab PO SCH (10:34)
[2018-05-03 11:05] LABS: LYMPHOCYTE 12 % (20-50); MONOCYTE 4 % (0-10); NEUTROPHIL 84 % (42-75); PLATELET ESTIMATE NORMAL (NORMAL); TOTAL CELLS COUNTED 100
[2018-05-03 11:25] LABS: BURR CELLS SLIGHT; OVALOCYTES SLIGHT
[2018-05-03] MEDS: Sodium Chloride 0.9% 1,000 ML IV SCH (11:52)
--- NOTE | 2018-05-03 12:02 | CP.PCM.PN ---
Subjective - Date & Time of Evaluation Date of Evaluation: 05/03/18 Time of Evaluation: 11:59 - Subjective Subjective: pt transfered to this service after being addmited for COPD exacerbation. started on antihypertensives in hospital. states has o2 at home for copd and sleeps w/ cpap for fran. at present no complaints/distress. no f/c, n/v/d. bw noted. pt requesting to go home. Objective - Vital Signs/Intake and Output Vital Signs (last 24 hours): Temp Pulse Resp BP Pulse Ox 97.6 F 78 18 140/88 99 05/03/18 08:00 05/03/18 10:35 05/03/18 08:00 05/03/18 10:35 05/03/18 08:00 - Medications Medications: Current Medications Albuterol/Ipratropium (Duoneb 3 Mg/0.5 Mg (3 Ml) Ud) 3 ml INH RQ4 [facility] Last Admin: 05/03/18 11:22 Dose: 3 ml Enoxaparin Sodium (Lovenox) 40 mg SC DAILY [facility]; Protocol Last Admin: 05/03/18 10:24 Dose: 40 mg Home Med (Fluticasone/Salmeterol [Airduo Respiclick 113-14 Mcg]) 1 puff IH Q12 [facility] Home Med (Triazolam [Halcion]) 0.5 mg PO HS PRN PRN Reason: Sleep Hydralazine HCl (Apresoline) 10 mg IV Q6 PRN PRN Reason: for SBP> 160 Last Admin: 04/28/18 21:34 Dose: 10 mg Insulin Human Lispro (Humalog) 0 units SC ACHS [facility]; Protocol Last Admin: 05/03/18 11:53 Dose: Not Given Ketorolac Tromethamine (Toradol) 30 mg IVP Q6H PRN PRN Reason: Pain, moderate (4-7) Last Admin: 05/03/18 00:06 Dose: 30 mg Lidocaine (Lidoderm) 1 ea TD DAILY [facility] Last Admin: 05/03/18 10:24 Dose: 1 ea Losartan Potassium (Cozaar) 50 mg PO DAILY [facility] Last Admin: 05/03/18 10:35 Dose: 50 mg Methylprednisolone (Solu-Medrol) 40 mg IVP Q8 [facility] Last Admin: 05/03/18 10:34 Dose: 40 mg Montelukast Sodium (Singulair) 10 mg PO HS [facility] Last Admin: 05/02/18 21:12 Dose: 10 mg Nicotine (Nicoderm Cq) 1 patch TD DAILY [facility] Last Admin: 05/03/18 10:29 Dose: 1 patch Pantoprazole Sodium (Protonix Ec Tab) 40 mg PO DAILY [facility] Last Admin: 05/03/18 10:34 Dose: 40 mg - Labs Labs: 05/03/18 05:10 05/03/18 05:10 - Constitutional Appears: Well, Non-toxic, No Acute Distress - Head Exam Head Exam: ATRAUMATIC, NORMAL INSPECTION, NORMOCEPHALIC - Eye Exam Eye Exam: EOMI, Normal appearance, PERRL Pupil Exam: NORMAL ACCOMODATION, PERRL - ENT Exam ENT Exam: Mucous Membranes Moist, Normal Exam - Neck Exam Neck Exam: Full ROM, Normal Inspection. absent: Lymphadenopathy - Respiratory Exam Respiratory Exam: Wheezes, NORMAL BREATHING PATTERN Additional comments: good air entry - Cardiovascular Exam Cardiovascular Exam: REGULAR RHYTHM, RRR, +S1, +S2. absent: Murmur - GI/Abdominal Exam GI & Abdominal Exam: Soft, Normal Bowel Sounds. absent: Tenderness - Extremities Exam Extremities Exam: Full ROM, Normal Capillary Refill, Normal Inspection. absent: Joint Swelling, Pedal Edema - Back Exam Back Exam: NORMAL INSPECTION - Neurological Exam Neurological Exam: Alert, Awake, CN II-XII Intact, Normal Gait, Oriented x3 - Psychiatric Exam Psychiatric exam: Normal Affect, Normal Mood - Skin Skin Exam: Dry, Intact, Normal Color, Warm Assessment and Plan (1) Asthma with COPD with exacerbation Assessment & Plan: solumedrol, change to prednisone taper duonebs prn o2-pt has home o2 and cpap Status: Acute (2) DVT prophylaxis Assessment & Plan: scd and aehose lovenox Status: Acute (3) HTN (hypertension) Assessment & Plan: losartan Status: Chronic
[2018-05-03 12:31] VITALS: RESP 20
[2018-05-03 15:56] VITALS: BP 126/85; PULSE 66; TEMP 98.4; O2SAT 97
--- NOTE | 2018-05-03 18:32 | CP.PCM.DIS ---
Provider - Provider Date of Admission: 04/27/18 14:34 Attending physician: Tj Jacobs MD Time Spent in preparation of Discharge (in minutes): 15 Diagnosis - Discharge Diagnosis (1) Asthma with COPD with exacerbation Status: Acute Priority: High (2) DVT prophylaxis Status: Acute (3) HTN (hypertension) Status: Chronic Priority: Medium Hospital Course - Lab Results Lab Results: Micro Results 04/27/18 13:00 Blood Blood Culture - Final NO GROWTH AFTER 5 DAYS 04/27/18 13:00 Blood Gram Stain - Final TEST NOT PERFORMED 04/30/18 09:46 Sputum Gram Stain - Final 04/30/18 09:46 Sputum Sputum Culture - Final NORMAL ORAL ALLEN 04/27/18 19:05 Nose MRSA Culture (Admit) - Final MRSA NOT DETECTED Most Recent Lab Values WBC 9.9 K/uL (4.8-10.8) 05/03/18 05:10 RBC 4.64 Mil/uL (3.80-5.20) 05/03/18 05:10 Hgb 12.4 g/dL (12.0-16.0) 05/03/18 05:10 Hct 38.0 % (34.0-47.0) 05/03/18 05:10 MCV 82.1 fl (81.0-99.0) 05/03/18 05:10 MCH 26.8 pg (27.0-31.0) L 05/03/18 05:10 MCHC 32.7 g/dL (33.0-37.0) L 05/03/18 05:10 RDW 13.6 % (11.5-14.5) 05/03/18 05:10 Plt Count 219 K/uL (130-400) 05/03/18 05:10 MPV 9.2 fl (7.2-11.7) 05/03/18 05:10 Neut % (Auto) 87.3 % (50.0-75.0) H 05/03/18 05:10 Lymph % (Auto) 9.5 % (20.0-40.0) L 05/03/18 05:10 Ada % (Auto) 3.1 % (0.0-10.0) 05/03/18 05:10 Eos % (Auto) 0.0 % (0.0-4.0) 05/03/18 05:10 Baso % (Auto) 0.1 % (0.0-2.0) 05/03/18 05:10 Neut # (Auto) 8.6 K/uL (1.8-7.0) H 05/03/18 05:10 Lymph # (Auto) 0.9 K/uL (1.0-4.3) L 05/03/18 05:10 Ada # (Auto) 0.3 K/uL (0.0-0.8) 05/03/18 05:10 Eos # (Auto) 0.0 K/uL (0.0-0.7) 05/03/18 05:10 Baso # (Auto) 0.0 K/uL (0.0-0.2) 05/03/18 05:10 Neutrophils % (Manual) 84 % (42-75) H 05/03/18 05:10 Lymphocytes % (Manual) 12 % (20-50) L 05/03/18 05:10 Monocytes % (Manual) 4 % (0-10) 05/03/18 05:10 Platelet Estimate Normal (NORMAL) 05/03/18 05:10 Anisocytosis (manual) Slight 04/28/18 04:31 Ovalocytes Slight 05/03/18 05:10 Cassi Cells Slight 05/03/18 05:10 pCO2 37 mm/Hg (35-45) 04/29/18 04:00 pO2 76 mm/Hg (80-100) L 04/29/18 04:00 HCO3 25.3 mmol/L (21-28) 04/29/18 04:00 ABG pH 7.43 (7.35-7.45) 04/29/18 04:00 ABG Total CO2 25.7 mmol/L (22-28) 04/29/18 04:00 ABG O2 Saturation 98.1 % (95-98) H 04/29/18 04:00 ABG O2 Content 15.9 ML/dL (15-23) 04/29/18 04:00 ABG Base Excess 0.5 mmol/L (-2.0-3.0) 04/29/18 04:00 ABG Hemoglobin 11.9 g/dL (11.7-17.4) 04/29/18 04:00 ABG Carboxyhemoglobin 2.0 % (0.5-1.5) H 04/29/18 04:00 POC ABG HHb (Measured) 1.8 % (0.0-5.0) 04/29/18 04:00 ABG Methemoglobin 1.5 % (0.0-3.0) 04/29/18 04:00 ABG O2 Capacity 16.2 mL/dL (16-24) 04/29/18 04:00 [place] Test Yes 04/29/18 04:00 ABG Potassium 4.1 mmol/L (3.6-5.2) 04/28/18 05:29 A-a O2 Difference 163.0 mm/Hg 04/29/18 04:00 Hgb O2 Saturation 94.7 % (95.0-98.0) L 04/29/18 04:00 Sodium 140.0 mmol/L (132-148) 04/28/18 05:29 Chloride 111.0 mmol/L (98-107) H 04/28/18 05:29 Glucose 163 mg/dL (65-105) H 04/28/18 05:29 Lactate 1.9 mmol/L (0.7-2.1) 04/28/18 05:29 Liter Flow 12 04/27/18 12:59 Vent Mode A/c 04/29/18 04:00 Mechanical Rate 8 04/29/18 04:00 FiO2 40.0 % 04/29/18 04:00 Tidal Volume 500 04/29/18 04:00 PEEP 5 04/29/18 04:00 Pressure Support 5 04/27/18 12:59 Inspiratory BiPAP 10 04/27/18 12:[address] jackson bruce 04/27/18 12:59 Crit Value Called To Dr jackson sánchez 04/27/18 12:59 Crit Value Called By 15 04/27/18 12:59 Crit Value Read Back Y 04/27/18 12:59 Blood Gas Notified Time 1303 04/27/18 12:59 Sodium 140 mmol/l (132-148) 05/03/18 05:10 Potassium 4.1 MMOL/L (3.6-5.0) 05/03/18 05:10 Chloride 107 mmol/L (98-107) 05/03/18 05:10 Carbon Dioxide 24 mmol/L (22-30) 05/03/18 05:10 Anion Gap 13 (10-20) 05/03/18 05:10 BUN 17 mg/dl (7-17) 05/03/18 05:10 Creatinine 0.6 mg/dl (0.7-1.2) L 05/03/18 05:10 Est GFR ( Amer) > 60 05/03/18 05:10 Est GFR (Non-Af Amer) > 60 05/03/18 05:10 POC Glucose (mg/dL) 173 mg/dL (65-110) H 05/03/18 15:31 Random Glucose 145 mg/dL (65-105) H 05/03/18 05:10 Calcium 8.7 mg/dL (8.4-10.2) 05/03/18 05:10 Magnesium 2.2 MG/DL (1.6-2.3) 04/28/18 04:31 Total Bilirubin 0.4 mg/dl (0.2-1.3) 05/03/18 05:10 GGT 27 U/L (8-78) 04/27/18 19:07 AST 12 U/L (14-36) L D 05/03/18 05:10 ALT 25 U/L (9-52) 05/03/18 05:10 Alkaline Phosphatase 87 U/L (38-126) 05/03/18 05:10 Troponin I 0.0560 ng/mL (0.00-0.120) 04/28/18 04:31 NT-Pro-B Natriuret Pep 144 pg/ml (0-900) 04/27/18 13:00 Total Protein 6.3 G/DL (6.3-8.2) 05/03/18 05:10 Albumin 3.6 g/dL (3.5-5.0) 05/03/18 05:10 Globulin 2.7 gm/dL (2.2-3.9) 05/03/18 05:10 Albumin/Globulin Ratio 1.3 (1.0-2.1) 05/03/18 05:10 Arterial Blood Potassium 4.1 mmol/L (3.6-5.2) 04/28/18 05:29 Urine Color Yellow (YELLOW) 04/27/18 14:18 Urine Clarity Cloudy (Clear) 11/02/18 14:18 Urine pH 5.0 (5.0-8.0) 04/27/18 14:18 Ur Specific [place] 1.023 (1.003-1.030) 04/27/18 14:18 Urine Protein 100 mg/dL (NEGATIVE) 04/27/18 14:18 Urine Glucose (UA) Neg mg/dL (Normal) 04/27/18 14:18 Urine Ketones Negative mg/dL (NEGATIVE) 04/27/18 14:18 Urine Blood Negative (NEGATIVE) 04/27/18 14:18 Urine Nitrate Negative (NEGATIVE) 04/27/18 14:18 Urine Bilirubin Negative (NEGATIVE) 04/27/18 14:18 Urine Urobilinogen 0.2-1.0 mg/dL (0.2-1.0) 04/27/18 14:18 Ur Leukocyte Esterase Neg Angélica/uL (Negative) 04/27/18 14:18 Urine RBC (Auto) 3 /hpf (0-3) 04/27/18 14:18 Urine Microscopic WBC 3 /hpf (0-5) 04/27/18 14:18 Ur Squamous Epith Cells 2 /hpf (0-5) 04/27/18 14:18 Urine Bacteria Rare (<OCC) 04/27/18 14:18 Hyaline Casts >20 /hpf (0-2) H 04/27/18 14:18 Influenza Typ A,B (EIA) Negative for flu a/b (NEGATIVE) 04/27/18 13:00 - Hospital Course Hospital Course: solumedrol, duoneb, ivf, bp control, nicoderm Discharge Exam - Head Exam Head Exam: ATRAUMATIC, NORMAL INSPECTION, NORMOCEPHALIC Discharge Plan - Discharge Medications Prescriptions: Albuterol/Ipratropium [Duoneb 3 mg/0.5 mg (3 ml) UD] 3 ml INH RQ4 #100 neb Lidocaine 5% [Lidoderm] 1 ea TD DAILY #30 patch Losartan [Cozaar] 50 mg PO DAILY #30 tab Nicotine 14 mg/24 hr [Nicoderm CQ] 1 patch TD DAILY #30 patch Pantoprazole [Protonix EC Tab] 40 mg PO DAILY #30 ect predniSONE [Prednisone] 10 mg PO BID #30 tab Sodium Chloride for Inhalation [Sodium Chloride 3% for Inhalation] 4 ml IH ONCE PRN #100 vial.neb PRN Reason: Sputum Culture Collection - Follow Up Plan Condition: CRITICAL Disposition: HOME/ ROUTINE Instructions: Asthma, Adult (DC), Respiratory Distress Syndrome, Adult (DC), Exacerbation of COPD (DC) Additional Instructions: follow up with pmd and in 2-3 days final dx-copd exacerbation, resp distress doing well. amb w/ steady gait. has nasal o2 at home, cpap. f/u rmg, rted prn, meds per med rec Referrals: Tung Cornelius MD [Family Provider] - Talha Rogel MD [Staff Provider] -
== END 2018-05-03 17:00 | disposition home or self-care (01) | DRG 133 ==
LOC: H.ER 12:46 → H.ERHOLD 14:34 → UNDOADMIN 15:03 → H.ICU/CCU 16:02 → H.TEL 04-30 21:14
PROVIDERS: ADMIT Family Medicine; ATTEND Family Medicine
PROC: 5A1945Z Respiratory Ventilation, 24-96 Consecutive Hours (ICD-10-PCS; principal; 2018-04-27)
PROC: 0BH17EZ Insertion of Endotracheal Airway into Trachea, Via Natural or Artificial Opening (ICD-10-PCS; 2018-04-27)
DX: J96.01 Acute respiratory failure with hypoxia (principal); J15.9 Unspecified bacterial pneumonia; J44.0 Chronic obstructive pulmonary disease with (acute) lower respiratory infection; J45.22 Mild intermittent asthma with status asthmaticus; Z99.81 Dependence on supplemental oxygen; I48.91 Unspecified atrial fibrillation; J44.1 Chronic obstructive pulmonary disease with (acute) exacerbation; E66.9 Obesity, unspecified; Z68.35 Body mass index [BMI] 35.0-35.9, adult; G89.29 Other chronic pain; F41.8 Other specified anxiety disorders; R73.9 Hyperglycemia, unspecified; Z79.891 Long term (current) use of opiate analgesic; F17.210 Nicotine dependence, cigarettes, uncomplicated; M17.0 Bilateral primary osteoarthritis of knee; J96.02 Acute respiratory failure with hypercapnia; T38.0X5A Adverse effect of glucocorticoids and synthetic analogues, initial encounter; K29.70 Gastritis, unspecified, without bleeding; G47.33 Obstructive sleep apnea (adult) (pediatric); I10 Essential (primary) hypertension; Z88.3 Allergy status to other anti-infective agents; Z88.0 Allergy status to penicillin; M06.9 Rheumatoid arthritis, unspecified